=== PATIENT | female | born 1940 | race Caucasian/White ===

== ENCOUNTER 2016-09-12 | Outpatient (CLI) | END 2016-09-12 02:28 | disposition EMS.NT ==

== ENCOUNTER → 2016-09-15 | Outpatient (CLI) | payer OTHER | DX: R55 Syncope and collapse (principal) ==

== ENCOUNTER 2016-10-22 11:14 | Outpatient (CLI) | payer OTHER | END 2016-10-22 11:15 | disposition home or self-care (01) | DX: R55 Syncope and collapse (principal); E11.8 Type 2 diabetes mellitus with unspecified complications; I10 Essential (primary) hypertension; E78.5 Hyperlipidemia, unspecified ==

== ENCOUNTER 2016-11-24 08:00 | Outpatient (CLI) | payer OTHER | END 2016-11-24 08:01 | disposition home or self-care (01) | DX: R51 Headache (principal); E78.00 Pure hypercholesterolemia, unspecified; E11.9 Type 2 diabetes mellitus without complications ==

== ENCOUNTER 2016-12-08 15:20 | Outpatient (CLI) | payer MEDICARE | END 2016-12-08 15:21 | disposition home or self-care (01) | DX: E87.6 Hypokalemia (principal) ==

== ENCOUNTER 2016-12-10 12:45 | Outpatient (CLI) | payer MEDICARE ==
[2016-12-10] MEDS ORDERED: IOPAMIDOL-300 100 ML VIAL IVP ONE (13:10)
== END 2016-12-10 12:46 | disposition home or self-care (01) ==
DX: R51 Headache (principal); R90.82 White matter disease, unspecified
CPT/HCPCS: 70470; Q9967

== ENCOUNTER 2017-01-20 08:00 | Outpatient (CLI) | payer MEDICARE | END 2017-01-20 08:01 | disposition home or self-care (01) | DX: I10 Essential (primary) hypertension (principal); E78.00 Pure hypercholesterolemia, unspecified ==

== ENCOUNTER 2017-07-30 15:18 | Outpatient (CLI) | payer MEDICARE ==
[2017-07-30 18:51] LABS: BASOPHILS # (AUTO) 0.1 10^3/uL (0.0-0.1); BASOPHILS % (AUTO) 0.8 %; EOSINOPHILS # (AUTO) 0.1 10^3/uL (0.0-0.7); EOSINOPHILS % (AUTO) 1.9 %; HCT - HEMATOCRIT 42.9 % (37.0-47.0); LYMPHOCYTES % (AUTO) 26.7 %; MEAN CORPUSCULAR HEMOGLOBIN 29.3 pg (27.0-31.0); MEAN CORPUSCULAR HGB CONC 32.7 g/dL (32.0-36.0); MEAN CORPUSCULAR VOLUME 89.4 fL (81.0-99.0); MEAN PLATELET VOLUME 8.9 fL (7.9-10.8); MONOCYTES # (AUTO) 0.4 10^3/uL (0.0-1.0); NEUTROPHILS # (AUTO) 4.9 10^3/uL (1.5-6.6); NEUTROPHILS % (AUTO) 65.6 %; NUCLEATED RED BLOOD CELLS AUTO 0.1 /100WBC; RED CELL DISTRIBUTION WIDTH 12.9 % (12.0-15.0); UNCORRECTED WHITE BLOOD COUNT 7.5 x10^3/uL; WHITE BLOOD COUNT 7.5 x10^3/uL (4.8-10.8)
[2017-07-30 19:12] LABS: HEMOGLOBIN A1C 0.73 g/dL
[2017-07-30 19:31] LABS: ALBUMIN/GLOBULIN RATIO 1.3 (1.0-2.2); BILIRUBIN,TOTAL 0.6 mg/dL (0.2-1.0); BUN - BLOOD UREA NITROGEN 16 mg/dL (6-20); CALCIUM 9.7 mg/dL (8.5-10.3); CARBON DIOXIDE - CO2 29 mmol/L (21-32); CHLORIDE 98 mmol/L (101-111); CHOL/HDL RATIO 3.8 (<4.4); CHOLESTEROL 218 mg/dL; CREATININE 0.9 mg/dL (0.4-1.0); GFR - MDRD 61 (>89); GLUCOSE 135 mg/dL (70-100); HDL CHOLESTEROL 57 mg/dL; LDL/HDL RATIO 2.4 (<4.4); POTASSIUM 3.6 mmol/L (3.5-5.0); SODIUM 137 mmol/L (135-145); TOTAL PROTEIN 7.5 g/dL (6.7-8.2); TRIGLYCERIDES 114 mg/dL; VLDL CHOLESTEROL 23 mg/dL
== END 2017-07-30 15:19 | disposition home or self-care (01) ==
LOC: LAB.F 15:18
PROVIDERS: ATTEND Physician Assistant Medical
DX: E87.6 Hypokalemia (principal); E78.00 Pure hypercholesterolemia, unspecified; I10 Essential (primary) hypertension
CPT/HCPCS: 36415; 80053; 80061; 83036; 85025

== ENCOUNTER 2018-06-29 13:49 | Outpatient (CLI) | payer MEDICARE ==
[2018-06-29 17:59] LABS: MEAN CORPUSCULAR HEMOGLOBIN 29.8 pg (27.0-31.0); MEAN CORPUSCULAR HGB CONC 33.5 g/dL (32.0-36.0); MEAN PLATELET VOLUME 9.2 fL (7.9-10.8); RED BLOOD COUNT 4.69 10^6/uL (4.20-5.40); RED CELL DISTRIBUTION WIDTH 12.8 % (12.0-15.0); WHITE BLOOD COUNT 7.4 x10^3/uL (4.8-10.8)
[2018-06-29 18:30] LABS: BUN - BLOOD UREA NITROGEN 19 mg/dL (6-20); CALCIUM 9.5 mg/dL (8.5-10.3); CARBON DIOXIDE - CO2 30 mmol/L (21-32); CHLORIDE 102 mmol/L (101-111); CHOL/HDL RATIO 3.9 (<4.4); CHOLESTEROL 208 mg/dL; CREATININE 0.8 mg/dL (0.4-1.0); GFR - MDRD 70 (>89); GLUCOSE 100 mg/dL (70-100); HDL CHOLESTEROL 54 mg/dL; LDL CHOLESTEROL,CALCULATED 133 mg/dL; LDL/HDL RATIO 2.5 (<4.4); SODIUM 140 mmol/L (135-145); VLDL CHOLESTEROL 21 mg/dL
[2018-06-29 18:34] LABS: HB2 TOTAL 14.7 g/dL; HEMOGLOBIN A1C 0.68 g/dL; HEMOGLOBIN A1C % 6.4 % (4.6-6.2)
== END 2018-06-29 13:50 | disposition home or self-care (01) ==
LOC: LAB.F 13:49
PROVIDERS: ATTEND Physician Assistant Medical
DX: E11.40 Type 2 diabetes mellitus with diabetic neuropathy, unspecified (principal); E78.00 Pure hypercholesterolemia, unspecified; I10 Essential (primary) hypertension
CPT/HCPCS: 36415; 80048; 80061; 82043; 83036; 83721; 85027

== ENCOUNTER 2018-07-04 21:05 | Emergency (ER) | payer MEDICARE, OTHER ==
--- NOTE | 2018-07-04 22:35 | CT Report ---
Reason: concussion Procedure Date: 07/04/2018 Accession Number: [id number] / [id number] Procedure: CT - Head W/O CPT Code: FULL RESULT: EXAM: CT HEAD EXAM DATE: 07/04/2018 10:01 PM. CLINICAL HISTORY: Concussion. COMPARISON: Head CT 12/10/2016. TECHNIQUE: Multiaxial CT images were obtained from the foramen magnum to the vertex. Reformats: Sagittal and coronal. IV contrast: None. In accordance with CT protocol optimization, one or more of the following dose reduction techniques were utilized for this exam: automated exposure control, adjustment of mA and/or KV based on patient size, or use of iterative reconstructive technique. FINDINGS: Parenchyma: No intraparenchymal hemorrhage. No evidence of mass, midline shift, or CT findings of infarction. Schaefer-white differentiation is distinct. Extraaxial Spaces: Normal for age. No subdural or epidural collections identified. Ventricles: Normal in size and position. Sinuses and Orbits: Imaged paranasal sinuses, orbits, and mastoids show no significant abnormality. Bones: No evidence of fracture or calvarial defect. Other: Prominent nonspecific white matter hypodensity, unchanged. IMPRESSION: No acute intracranial process identified. RADIA
--- NOTE | 2018-07-04 23:08 | ED Physician Documentation ---
PD HPI HEAD INJURY - Stated complaint Stated Complaint: GLF - HEAD PX - Chief complaint Chief Complaint: Neuro - History obtained from History obtained from: Patient, Family - History of Present Illness Mechanism of head injury: Fell Where head injury occurred: Other (gas station) Timing - onset: Yesterday Location of injury: Right, Front Quality of pain: Pain Associated symptoms: Nausea / vomiting. No: LOC, AMS, Amnesia, Neck pain, Paresthesias, Seizures, Ear drainage, Nasal drainage Symptoms improve with: Rest Symptoms worsen with: Palpation, Movement Contributing factors: No: Anticoagulated Similar symptoms before: Diagnosis (concussion) Recently seen: Not recently seen - Additional information Additional information: 78-year-old female was walking into the [employer] [place] when she tripped over a small ledge fell forward and fell onto her face. She has a bruise to her forehead on the right side. She did not have any loss of consciousness associated with the fall. She has had some nausea she has not had any vomiting. She has had some trouble concentrating and problems with her memory. She den ies any dizziness associated with this. She has had a prior head injury in 1993 that was significant and required prolonged rehabilitation. She states that at that time she had a lot of dizziness associated with it and she has not had any with this head injury. She notes that her friends are telling her that she is not acting her usual self. Review of Systems Constitutional: denies: Fever Eyes: denies: Loss of vision, Decreased vision Ears: denies: Ear pain Nose: denies: Rhinorrhea / runny nose, Congestion Throat: denies: Sore throat Cardiac: denies: Chest pain / pressure, Palpitations Respiratory: denies: Dyspnea, Cough GI: reports: Nausea. denies: Abdominal Pain, Vomiting, Constipation, Diarrhea : denies: Dysuria, Frequency Skin: denies: Rash Musculoskeletal: denies: Neck pain, Back pain, Extremity pain Neurologic: reports: Confused, Headache, Head injury. 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, Other - Present Medications Home Medications: Ambulatory Orders Medication Instructions Recorded Confirmed Aspirin Chewable [St Reyes 81 mg PO DAILY 08/26/13 08/26/13 Aspirin] Lisinopril [Zestril] 40 mg PO DAILY 08/26/13 08/26/13 Simvastatin 80 mg PO 08/26/13 08/26/13 diazePAM [Valium] 5 mg PO TID PRN #7 tablet 08/26/13 Ondansetron Odt [Zofran] 4 mg TL Q6H PRN #10 tablet 07/04/18 - Allergies Allergies/Adverse Reactions: Allergies Allergy/AdvReac Type Severity Reaction Status Date / Time meperidine HCl * AdvReac Unknown Nausea Verified 07/04/18 21:14 [From Demerol] niacin AdvReac Unknown Hives Verified 07/04/18 21:14 - Social History Does the pt smoke?: Yes Smoking Status: Current every day smoker Does the pt drink ETOH?: No Does the pt have substance abuse?: No - Immunizations Immunizations are current?: Yes - POLST Patient has POLST: No PD ED PE NORMAL - Vitals Vital signs reviewed: Yes (hypertensive ) - General General: Alert and oriented X 3, No acute distress, Well developed/nourished - HEENT HEENT: PERRL, EOMI, Ears normal, Moist mucous membranes, Other (There is a tender area to the right forehead with minimal ecchymosis) - Neck Neck: Supple, no meningeal sign, No bony TTP - Cardiac Cardiac: RRR, No murmur - Respiratory Respiratory: No respiratory distress, Clear bilaterally - Abdomen Abdomen: Soft, Non tender - Back Back: No CVA TTP, No spinal TTP - Derm Derm: Normal color, Warm and dry, No rash - Extremities Extremities: No deformity, No edema - Neuro Neuro: Alert and oriented X 3, community organization worker 2-12 intact, No motor deficit, No sensory deficit, Normal speech Eye Opening: Spontaneous Motor: Obeys Commands Verbal: Oriented GCS Score: 15 - Psych Psych: Normal mood, Normal affect Results - Vitals Vitals: Vital Signs - 24 hr 07/04/18 21:08 Temperature 36.7 C Heart Rate 89 Respiratory 18 Rate Blood Pressure 199/91 H O2 Saturation 97 Oxygen O2 Source Room air - Rads (name of study) CT head without Radiology: Prelim report reviewed (Impression: No acute intracranial process identified.), EMP read indepedently, See rad report PD MEDICAL DECISION MAKING - ED course Complexity details: reviewed old records, reviewed results, re-evaluated patient, considered differential, d/w patient, d/w family ED course: 78-year-old female with a concussion without loss of consciousness has had some trouble concentrating and some mild nausea. Her CT scan is without evidence of acute intracranial hemorrhage. The patient does have a friend that she will be staying with and she is discharged to home with instructions on concussion. Departure - Departure Disposition: 01 Home, Self Care Clinical Impression: Concussion Qualifiers: Encounter type: initial encounter Loss of consciousness presence/duration: without LOC Qualified Code(s): S06.0X0A - Concussion without loss of consciousness, initial encounter Condition: Stable Instructions: ED Concussion Follow-Up: Angeline Garces PA-C [Primary Care Provider] - Prescriptions: Ondansetron Odt [Zofran] 4 mg TL Q6H PRN #10 tablet PRN Reason: Nausea / Vomiting
[2018-07-04 23:40] VITALS: BP 192/64
== END 2018-07-04 23:40 | disposition home or self-care (01) ==
LOC: ED 21:05
DX: S06.0X0A Concussion without loss of consciousness, initial encounter (principal); W01.0XXA Fall on same level from slipping, tripping and stumbling without subsequent striking against object, initial encounter; Y93.01 Activity, walking, marching and hiking; Y92.524 Gas station as the place of occurrence of the external cause; I11.0 Hypertensive heart disease with heart failure; I50.9 Heart failure, unspecified; E78.00 Pure hypercholesterolemia, unspecified; E11.9 Type 2 diabetes mellitus without complications; F17.200 Nicotine dependence, unspecified, uncomplicated; I25.10 Atherosclerotic heart disease of native coronary artery without angina pectoris; Z79.82 Long term (current) use of aspirin
CPT/HCPCS: 70450; 99282; 99283

== ENCOUNTER 2018-07-06 17:03 | Outpatient (CLI) | payer OTHER ==
--- NOTE | 2018-07-06 21:48 | XRAY Report ---
Reason: CERVICALGIA Procedure Date: 07/06/2018 Accession Number: [id number] / [id number] Procedure: XR - Cervical Spine Complete CPT Code: FULL RESULT: EXAM: CERVICAL SPINE RADIOGRAPHY EXAM DATE: 07/06/2018 05:38 PM. CLINICAL HISTORY: Fall with head trauma 2 days ago. Persistent posterior neck pain. COMPARISONS: None. TECHNIQUE: 6 views. FINDINGS: Alignment: 4 mm degenerative anterior subluxation C4 on C5. Bones: The cervical vertebral bodies and posterior elements are well-visualized from the skull base through C7-T1. No fractures or bone lesions. Disks: Mild narrowing C4-C5. Moderate narrowing C5-C6. Facets: Multilevel marked degenerative changes bilaterally, greater on the left. Neural Foramina: Bony neural foraminal compromise as follows: Moderate right and marked left C3-C4, moderate bilateral C4-C5, moderate bilateral C5-C6. Soft Tissues: Normal. No prevertebral soft tissue swelling. The visualized lung apices are clear. IMPRESSION: 1. No acute bony abnormality. 2. Multilevel moderate to marked degenerative changes. RADIA
== END 2018-07-06 17:04 | disposition home or self-care (01) ==
LOC: DI 17:03
PROVIDERS: ATTEND Physician Assistant Medical
DX: M47.9 Spondylosis, unspecified (principal); M50.321 Other cervical disc degeneration at C4-C5 level; M43.12 Spondylolisthesis, cervical region
CPT/HCPCS: 72050

== ENCOUNTER 2018-08-17 14:29 | Outpatient (CLI) | payer OTHER ==
--- NOTE | 2018-08-18 09:17 | Mammography Report ---
Reason: ANNUAL SCREENING Procedure Date: 08/17/2018 Accession Number: [id number] / [id number] Procedure: KELLIE - Screening Mammo w/Graham CPT Code: FULL RESULT: EXAM: Screening Mammo w/Graham DATE: 08/17/2018 2:58 PM CLINICAL HISTORY: Screening encounter. History of nulliparity. Family history of breast cancer in a sister around the age of 73 as well as a male relative in his 30s. TECHNIQUE: Bilateral CC and MLO views were obtained. COMPARISON: 08/16/2017 through 08/16/2015. FINDINGS: The breasts demonstrate heterogeneously dense fibroglandular parenchyma bilaterally. There are coarse typically benign calcifications. No suspicious masses, clustered microcalcifications, or regions of architectural distortion are identified. IMPRESSION: Benign findings RECOMMENDATION: Routine annual screening unless otherwise clinically indicated. BIRADS CATEGORY 2: Benign findings STANDARD QUALIFYING STATEMENTS: 1. This examination was not reviewed with the aid of Computer-Aided Detection (CAD). 2. A negative or benign imaging report should not preclude biopsy if clinically suspicious findings are present. 3. Dense breasts may obscure an underlying neoplasm. 4. This examination was reviewed with the aid of 3D breast imaging (tomosynthesis).
== END 2018-08-17 14:30 | disposition home or self-care (01) ==
LOC: DI 14:29
PROVIDERS: ATTEND Physician Assistant Medical
DX: Z12.31 Encounter for screening mammogram for malignant neoplasm of breast (principal); Z80.3 Family history of malignant neoplasm of breast
CPT/HCPCS: 77063; 77067

== ENCOUNTER 2018-12-13 13:49 | Outpatient (CLI) | payer OTHER | END 2018-12-13 13:50 | disposition home or self-care (01) | LOC: DI 13:49 | PROVIDERS: ATTEND Internal Medicine Cardiovascular Disease | DX: R07.9 Chest pain, unspecified (principal) | CPT/HCPCS: 93306 ==

== ENCOUNTER 2018-12-29 07:02 | Emergency (ER) | payer OTHER ==
[2018-12-29] MEDS ORDERED: ASPIRIN CHEW 81 MG TABLET PO STA (07:32)
--- NOTE | 2018-12-29 07:32 | ED Physician Documentation ---
PD HPI CHEST PAIN - Stated complaint Stated Complaint: CHEST PAIN - Chief complaint Chief Complaint: Cardiac - History obtained from History obtained from: Patient - History of Present Illness Timing - onset: How many hours ago (2) Timing - onset during: Sleep Pain level max: 10 Pain level now: 1 Quality: Pressure Location: Substernal Improved by: Nitro Associated symptoms: Nausea. No: Shortness of air, Diaphoresis, Vomiting Similar symptoms before: Diagnosis (Angina) Recently seen: Admitted (2 months ago she was hospitalized in [place] with chest pain.) - Treatment prior to arrival Treatment prior to arrival: NTG x 3. - Additional information Additional information: The patient is a 78-year-old female with history of angina, who presents with substernal chest pain that started about 2 hours prior to arrival, awaking her from sleep. It was rated 10 out of 10 in severity, and she describes it as pressure, heaviness. She has taken 3 of her own sublingual nitroglycerin, and reports improvement of her pain down to 1 out of 10 in severity at the time of arrival in the emergency department. She reports associated nausea. She denies vomiting, shortness of breath, or diaphoresis. She reports a history of similar but less severe pain 2 days ago, that resolved spontaneously. 2 months ago, while vacationing at [place], she developed chest pain for which she was hospitalized, and subsequently transferred to [facility] in [place] where she underwent cardiac catheterization. Cardiac risk factors are positive for diet-controlled diabetes, hyperlipidemia, hypertension, as well as history of cigarette smoking. She quit cigarettes about 4 years ago. Review of Systems Constitutional: denies: Fever, Fatigue Ears: denies: Tinnitus/ringing Nose: denies: Congestion Throat: denies: Sore throat Cardiac: reports: Chest pain / pressure. denies: Palpitations Respiratory: denies: Dyspnea, Cough GI: reports: Nausea. 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, Other - Present Medications Home Medications: Ambulatory Orders Medication Instructions Recorded Confirmed Aspirin Chewable [St Reyes 81 mg PO DAILY 08/26/13 08/26/13 Aspirin] Lisinopril [Zestril] 40 mg PO DAILY 08/26/13 08/26/13 Simvastatin 80 mg PO 08/26/13 08/26/13 diazePAM [Valium] 5 mg PO TID PRN #7 tablet 08/26/13 Ondansetron Odt [Zofran] 4 mg TL Q6H PRN #10 tablet 07/04/18 raNITIdine HCl [Ranitidine HCl] 150 mg PO BID #30 tablet 12/29/18 - Allergies Allergies/Adverse Reactions: Allergies Allergy/AdvReac Type Severity Reaction Status Date / Time meperidine HCl * AdvReac Unknown Nausea Verified 12/29/18 07:15 [From Demerol] niacin AdvReac Unknown Hives Verified 12/29/18 07:15 - Social History Does the pt smoke?: No Smoking Status: Former smoker Does the pt drink ETOH?: No Does the pt have substance abuse?: No - Immunizations Immunizations are current?: Yes - POLST Patient has POLST: No PD ED PE NORMAL - Vitals Vital signs reviewed: Yes (Systolic hypertension.) - General General: Alert and oriented X 3, Well developed/nourished - HEENT HEENT: Atraumatic, Moist mucous membranes, Pharynx benign - Neck Neck: No adenopathy, No JVD - Cardiac Cardiac: RRR, No murmur - Respiratory Respiratory: No respiratory distress, Clear bilaterally - Abdomen Abdomen: Soft, Non tender - Back Back: No CVA TTP - Derm Derm: No rash - Extremities Extremities: No edema, No calf tenderness / cord - Neuro Neuro: Alert and oriented X 3, No motor deficit, Normal speech Results - Vitals Vitals: Vital Signs - 24 hr 12/29/18 12/29/18 12/29/18 09:06 11:45 12:18 Heart Rate 54 L 60 104 H Respiratory 16 20 28 H Rate Blood Pressure 145/79 H 190/75 H 151/95 H O2 Saturation 96 97 97 Oxygen O2 Source Room air - EKG (time done) 07:09 Rate: Rate (enter#) (78) Rhythm: NSR [place]: Normal Intervals: Normal MA QRS: Normal Ischemia: Normal ST segments Compare to prior EKG: Unchanged from prior EKG Computer interpretation: Agree with computer - Labs Labs: Laboratory Tests 12/29/18 12/29/18 12/29/18 07:25 07:25 07:25 WBC 7.2 RBC 4.64 Hgb 13.5 Hct 41.0 MCV 88.4 MCH 29.2 MCHC 33.0 RDW 13.2 Plt Count 189 MPV 8.4 Neut # (Auto) 4.9 Lymph # (Auto) 1.6 [place] # (Auto) 0.4 Eos # (Auto) 0.2 Baso # (Auto) 0.1 Absolute Nucleated RBC 0.00 Nucleated RBC % 0.1 Sodium 138 Potassium 4.0 Chloride 99 L Carbon Dioxide 29 Anion Gap 10.0 BUN 17 Creatinine 0.8 Estimated GFR (MDRD) 70 L Glucose 124 H Calcium 9.2 Total Bilirubin 0.4 AST 26 ALT 34 Alkaline Phosphatase 60 Troponin I < 0.04 Total Protein 7.2 Albumin 3.8 Globulin 3.4 Albumin/Globulin Ratio 1.1 Lipase 27 12/29/18 11:16 WBC RBC Hgb Hct MCV MCH MCHC RDW Plt Count MPV Neut # (Auto) Lymph # (Auto) [place] # (Auto) Eos # (Auto) Baso # (Auto) Absolute Nucleated RBC Nucleated RBC % Sodium Potassium Chloride Carbon Dioxide Anion Gap BUN Creatinine Estimated GFR (MDRD) Glucose Calcium Total Bilirubin AST ALT Alkaline Phosphatase Troponin I < 0.04 Total Protein Albumin Globulin Albumin/Globulin Ratio Lipase - Rads (name of study) Portable CXR Radiology: Prelim report reviewed, EMP read contemporaneously, See rad report (Normal chest for age and body size, stable. No pneumonia, CHF or other demonstrated cause for chest pain.) PD MEDICAL DECISION MAKING - ED course Complexity details: reviewed old records, reviewed results, re-evaluated patient, considered differential, d/w patient, d/w golf tournament consultant ED course: The patient's presentation is consistent with angina, but her electrocardiogram reveals no acute ischemic abnormalities, and her troponin level is negative. A repeat troponin IV hours after presentation is also negative. Discharge summary from [facility] in [place] was obtained, revealing that the patient underwent cardiac catheterization there 2 months ago showing mild nonobstructive disease. She was pain-free for the first 4 hours of her course in the emergency department. She then developed slight nausea and chest pressure which she rated at 3 out of 10 in severity. A sublingual nitroglycerin was administered and it did not relieve her symptoms. Sublingual Zofran was administered and a GI cocktail. She did get relief of her symptoms with this treatment. I discussed her presentation with Dr. Zaldivar who is her coat hanger shaper machine operator. She has an appointment with him this afternoon, and will keep that appointment. Departure - Departure Disposition: 01 Home, Self Care Clinical Impression: Chest pain Qualifiers: Chest pain type: unspecified Qualified Code(s): R07.9 - Chest pain, unspecified Gastroesophageal reflux disease Qualifiers: Esophagitis presence: esophagitis presence not specified Qualified Code(s): K21.9 - Gastro-esophageal reflux disease without esophagitis Condition: Stable Instructions: ED Chest Pain Atypical Unkn Cause Follow-Up: Bronson Zaldivar MD [Provider Admit Priv/Credential] - Angeline Garces PA-C [Primary Care Provider] - Prescriptions: raNITIdine HCl [Ranitidine HCl] 150 mg PO BID #30 tablet Comments: Take ranitidine twice daily as prescribed. You can use liquid antacid, such as Maalox or Mylanta, if you develop recurrent symptoms. Keep the appointment with Dr. robert if that is scheduled for this afternoon. Return to the emergency department if you develop recurrent or increasing chest pain, or otherwise worsening symptoms. Discharge Date/Time: 12/29/18 12:51
[2018-12-29 07:42] LABS: BASOPHILS # (AUTO) 0.1 10^3/uL (0.0-0.1); BASOPHILS % (AUTO) 1.6 %; EOSINOPHILS # (AUTO) 0.2 10^3/uL (0.0-0.7); EOSINOPHILS % (AUTO) 2.5 %; HGB - HEMOGLOBIN 13.5 g/dL (12.0-16.0); LYMPHOCYTES # (AUTO) 1.6 10^3/uL (1.5-3.5); LYMPHOCYTES % (AUTO) 22.8 %; MEAN CORPUSCULAR HEMOGLOBIN 29.2 pg (27.0-31.0); MEAN CORPUSCULAR VOLUME 88.4 fL (81.0-99.0); MEAN PLATELET VOLUME 8.4 fL (7.9-10.8); MONOCYTES # (AUTO) 0.4 10^3/uL (0.0-1.0); MONOCYTES % (AUTO) 5.4 %; NEUTROPHILS # (AUTO) 4.9 10^3/uL (1.5-6.6); NEUTROPHILS % (AUTO) 67.7 %; PLT - PLATELET COUNT 189 10^3/uL (130-450); RED BLOOD COUNT 4.64 10^6/uL (4.20-5.40); RED CELL DISTRIBUTION WIDTH 13.2 % (12.0-15.0); WHITE BLOOD COUNT 7.2 x10^3/uL (4.8-10.8)
[2018-12-29 07:57] LABS: ALBUMIN 3.8 g/dL (3.2-5.5); ALBUMIN/GLOBULIN RATIO 1.1 (1.0-2.2); BILIRUBIN,TOTAL 0.4 mg/dL (0.2-1.0); CALCIUM 9.2 mg/dL (8.5-10.3); CREATININE 0.8 mg/dL (0.4-1.0); TOTAL PROTEIN 7.2 g/dL (6.7-8.2)
--- NOTE | 2018-12-29 08:15 | XRAY Report ---
Reason: chest pain Procedure Date: 12/29/2018 Accession Number: [id number] / [id number] Procedure: XR - Chest 1 View X-Ray CPT Code: 27147 FULL RESULT: EXAM: CHEST RADIOGRAPHY, PORTABLE 1 VIEW EXAM DATE: 12/29/2018 07:49 AM. CLINICAL HISTORY: Chest pain in a 78-year-old female. COMPARISON: CHEST 2 VIEW PA/LAT 02/04/2016 2:33 PM. XR CHEST PA AND LAT 03/11/2010 9:00 AM. TECHNIQUE: 834 hour AP upright portable view. FINDINGS: Lungs/Pleura: No focal opacities evident. No pleural effusion. No pneumothorax. Satisfactory inspiratory effort. Mediastinum: Heart size normal, without adenopathy or pulmonary vascular congestion. Mild aortic tortuosity, as previously. Other: Trachea is midline. Osseous structures are unremarkable for age. IMPRESSION: Normal chest for age and body size, stable. No pneumonia, CHF or other demonstrated cause for chest pain. RADIA
[2018-12-29] MEDS ORDERED: ONDANSETRON ODT 4 MG TABLET TL STA (11:47)
[2018-12-29] MEDS ORDERED: NITROGLYCERIN SL 0.4 MG TABLET SL STA (12:12)
[2018-12-29] MEDS ORDERED: LIDOCAINE VISCOUS 2% 15 ML UDC MM STA (12:18)
[2018-12-29] MEDS ORDERED: MAG HYDROX/AL HYDROX/SIMETH 30 ML UDC PO STA (12:18)
[2018-12-29 12:19] VITALS: BP 151/95
== END 2018-12-29 12:51 | disposition home or self-care (01) ==
LOC: ED 07:02
DX: R07.9 Chest pain, unspecified (principal); K21.9 Gastro-esophageal reflux disease without esophagitis; E78.00 Pure hypercholesterolemia, unspecified; I11.0 Hypertensive heart disease with heart failure; I50.9 Heart failure, unspecified; E11.9 Type 2 diabetes mellitus without complications; Z79.82 Long term (current) use of aspirin
CPT/HCPCS: 36415; 71045; 80053; 83690; 84484; 85025; 93005; 99284; A9270; Q0162

== ENCOUNTER 2019-04-10 | Outpatient (CLI) | payer OTHER | END 2019-04-10 10:47 | disposition home or self-care (01) ==

== ENCOUNTER 2019-05-14 06:30 | Outpatient (CLI) | payer OTHER | END 2019-05-14 06:31 | disposition critical access hospital (66) | LOC: EMS 06:30 | PROVIDERS: ATTEND Surgery | DX: R07.89 Other chest pain (principal) | CPT/HCPCS: A0425; A0429 ==

== ENCOUNTER 2019-05-14 07:04 | Emergency (ER) | payer OTHER ==
--- NOTE | 2019-05-14 07:16 | ED Physician Documentation ---
PD HPI CHEST PAIN - Stated complaint Stated Complaint: CP - Chief complaint Chief Complaint: Cardiac - History obtained from History obtained from: Patient - History of Present Illness Timing - onset: How many hours ago (2) Timing - onset during: Rest Timing - duration: Hours (2) Timing - details: Abrupt onset Pain level max: 7 Pain level now: 0 Quality: Pressure Location: Substernal Radiation: No: Jaw, Neck, Back, Abdominal, Left upper extremity, Right upper extremity Improved by: Nitro Worsened by: No: Exertion, Inspiration, Eating, Movement, Palpation, Position Similar symptoms before: Diagnosis (angina) Recently seen: Not recently seen - Additional information Additional information: mild non-obstructive disease on cardiac cath 7 months ago. NTG x2 given by EMS today with relief of symptoms. Pain is epigastric/lower chest. 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, Other - Present Medications Home Medications: Ambulatory Orders Medication Instructions Recorded Confirmed Aspirin Chewable [St Reyes 81 mg PO DAILY 08/26/13 08/26/13 Aspirin] Atorvastatin Calcium 20 mg PO DAILY 05/14/19 05/14/19 Lisinopril/Hydrochlorothiazide 1 each PO DAILY 05/14/19 05/14/19 [Lisinopril-Hctz 20-12.5 mg Tab] Nitroglycerin [Nitrostat] 0.4 mg SL ONCE 05/14/19 05/14/19 - Allergies Allergies/Adverse Reactions: Allergies Allergy/AdvReac Type Severity Reaction Status Date / Time meperidine HCl * AdvReac Unknown Nausea Verified 05/14/19 07:09 [From Demerol] niacin AdvReac Unknown Hives Verified 05/14/19 07:09 - Social History Does the pt smoke?: No Smoking Status: Former smoker Does the pt drink ETOH?: No Does the pt have substance abuse?: No - Immunizations Immunizations are current?: Yes - POLST Patient has POLST: No PD ED PE NORMAL - Vitals Vital signs reviewed: Yes - General General: Alert and oriented X 3, No acute distress - HEENT HEENT: Moist mucous membranes - Neck Neck: Supple, no meningeal sign - Cardiac Cardiac: RRR, Strong equal pulses - Respiratory Respiratory: No respiratory distress, Clear bilaterally - Abdomen Abdomen: Soft, Non tender, Non distended - Derm Derm: Warm and dry - Extremities Extremities: No edema - Neuro Neuro: Alert and oriented X 3 Results - Vitals Vitals: Vital Signs - 24 hr 05/14/19 05/14/19 07:05 09:32 Temperature 37.5 C 36.1 C L Heart Rate 70 63 Respiratory 21 19 Rate Blood Pressure 174/79 H 117/58 L O2 Saturation 96 96 Oxygen O2 Source Room air - EKG (time done) 0708 Rate: Rate (enter#) (63) Rhythm: NSR [place]: Normal Intervals: Normal [place] QRS: Normal Ischemia: Normal ST segments - Labs Labs: Laboratory Tests 05/14/19 05/14/19 05/14/19 07:13 07:13 07:13 WBC 7.9 RBC 4.45 Hgb 13.4 Hct 40.7 MCV 91.5 MCH 30.1 MCHC 32.9 RDW 12.5 Plt Count 189 MPV 10.1 Neut # (Auto) 5.0 Lymph # (Auto) 2.1 [place] # (Auto) 0.5 Eos # (Auto) 0.2 Baso # (Auto) 0.1 Absolute Nucleated RBC 0.00 Nucleated RBC % 0.0 Sodium 140 Potassium 3.6 Chloride 101 Carbon Dioxide 28 Anion Gap 11.0 BUN 16 Creatinine 0.8 Estimated GFR (MDRD) 70 L Glucose 123 H Calcium 9.4 Total Bilirubin < 0.2 L AST 19 ALT 20 Alkaline Phosphatase 55 Troponin I High Sens 3.6 Total Protein 7.1 Albumin 3.9 Globulin 3.2 Albumin/Globulin Ratio 1.2 Lipase 29 05/14/19 08:54 WBC RBC Hgb Hct MCV MCH MCHC RDW Plt Count MPV Neut # (Auto) Lymph # (Auto) [place] # (Auto) Eos # (Auto) Baso # (Auto) Absolute Nucleated RBC Nucleated RBC % Sodium Potassium Chloride Carbon Dioxide Anion Gap BUN Creatinine Estimated GFR (MDRD) Glucose Calcium Total Bilirubin AST ALT Alkaline Phosphatase Troponin I High Sens 3.3 Total Protein Albumin Globulin Albumin/Globulin Ratio Lipase - Rads (name of study) cxr Radiology: Prelim report reviewed, EMP read contemporaneously, See rad report (no acute disease) PD MEDICAL DECISION MAKING - ED course Complexity details: reviewed results, re-evaluated patient, considered diffe rential (No ST elevation [place], no aortic dissection, no PE, no tension pneumothorax, no aortic aneurysm), d/w patient, d/w family ED course: 78-year-old female presents to the emergency department with chest pain. No acute abnormalities on EKG. Negative high-sensitivity troponin x2. No evidence of acute coronary syndrome at this time. Normal cardiac cath 7 months ago e xcept for mild nonocclusive disease. She remained fully asymptomatic here. We will follow-up with her doctor for further care. Does not appear consistent with unstable angina. Patient counseled regarding signs and symptoms for which I believe and urgent re-evaluation would be necessary. Patient with good understanding of and agreement to plan and is comfortable going home at this time This document was made in part using voice recognition software. While efforts are made to proofread this document, sound alike and grammatical errors may occur. Departure - Departure Disposition: 01 Home, Self Care Clinical Impression: Chest pain Qualifiers: Chest pain type: unspecified Qualified Code(s): R07.9 - Chest pain, unspecified Condition: Good Instructions: ED Chest Pain Atypical Unkn Cause Follow-Up: Flynn Scott MD [Primary Care Provider] - Within 1 week Comments: Continue your current medications at home. Return if you worsen. Your testing does not show any acute abnormalities today. Discharge Date/Time: 05/14/19 09:42
[2019-05-14 07:19] LABS: BASOPHILS # (AUTO) 0.1 10^3/uL (0.0-0.1); BASOPHILS % (AUTO) 0.9 %; EOSINOPHILS # (AUTO) 0.2 10^3/uL (0.0-0.7); EOSINOPHILS % (AUTO) 2.3 %; HGB - HEMOGLOBIN 13.4 g/dL (12.0-16.0); LYMPHOCYTES # (AUTO) 2.1 10^3/uL (1.5-3.5); LYMPHOCYTES % (AUTO) 27.1 %; MEAN CORPUSCULAR HEMOGLOBIN 30.1 pg (27.0-31.0); MEAN CORPUSCULAR HGB CONC 32.9 g/dL (32.0-36.0); MEAN CORPUSCULAR VOLUME 91.5 fL (81.0-99.0); MEAN PLATELET VOLUME 10.1 fL (7.9-10.8); MONOCYTES # (AUTO) 0.5 10^3/uL (0.0-1.0); MONOCYTES % (AUTO) 6.1 %; NEUTROPHILS % (AUTO) 63.3 %; PLT - PLATELET COUNT 189 10^3/uL (130-450); RED BLOOD COUNT 4.45 10^6/uL (4.20-5.40); RED CELL DISTRIBUTION WIDTH 12.5 % (12.0-15.0); WHITE BLOOD COUNT 7.9 x10^3/uL (4.8-10.8)
[2019-05-14 07:42] LABS: ALBUMIN 3.9 g/dL (3.2-5.5); ALBUMIN/GLOBULIN RATIO 1.2 (1.0-2.2); ALKALINE PHOSPHATASE 55 IU/L (42-121); ALT ALANINE AMINOTRANSFERASE 20 IU/L (10-60); AST ASPARTATE AMINOTRANSFERASE 19 IU/L (10-42); BILIRUBIN,TOTAL < 0.2 mg/dL (0.2-1.0); BUN - BLOOD UREA NITROGEN 16 mg/dL (6-20); CALCIUM 9.4 mg/dL (8.5-10.3); CARBON DIOXIDE - CO2 28 mmol/L (21-32); CHLORIDE 101 mmol/L (101-111); CREATININE 0.8 mg/dL (0.4-1.0); GFR - MDRD 70 (>89); GLUCOSE 123 mg/dL (70-100); LIPASE 29 U/L (22-51); SODIUM 140 mmol/L (135-145); TOTAL PROTEIN 7.1 g/dL (6.7-8.2)
--- NOTE | 2019-05-14 08:02 | XRAY Report ---
Reason: chest pain Procedure Date: 05/14/2019 Accession Number: [id number] / [id number] Procedure: XR - Chest 1 View X-Ray CPT Code: 01574 FULL RESULT: EXAM: CHEST RADIOGRAPHY EXAM DATE: 05/14/2019 07:27 AM. CLINICAL HISTORY: Chest pain. COMPARISON: Chest radiograph from 12/29/2018. TECHNIQUE: 1 view. FINDINGS: Lungs/Pleura: No focal opacities evident. No pleural effusion. No pneumothorax. Mediastinum: Mild calcification of the aortic arch present. Cardiomediastinal contour is within normal limits. Other: None. IMPRESSION: No acute cardiopulmonary abnormality. RADIA
[2019-05-14 09:33] VITALS: BP 117/58
== END 2019-05-14 09:42 | disposition home or self-care (01) ==
LOC: EDUNIT# → ED 07:04
DX: R07.9 Chest pain, unspecified (principal); I10 Essential (primary) hypertension; E11.9 Type 2 diabetes mellitus without complications; Z87.891 Personal history of nicotine dependence; Z98.61 Coronary angioplasty status
CPT/HCPCS: 36415; 71045; 80053; 83690; 84484; 85025; 93005; 99284

== ENCOUNTER 2019-07-03 21:25 | Outpatient (CLI) | payer OTHER | END 2019-07-03 21:26 | disposition critical access hospital (66) | LOC: EMS 21:25 | PROVIDERS: ATTEND Surgery | DX: R07.89 Other chest pain (principal); R11.0 Nausea | CPT/HCPCS: A0425; A0427 ==

== ENCOUNTER 2019-07-03 21:57 | Emergency (ER) | payer OTHER ==
[2019-07-03 22:15] LABS: BASOPHILS # (AUTO) 0.1 10^3/uL (0.0-0.1); BASOPHILS % (AUTO) 0.7 %; EOSINOPHILS # (AUTO) 0.2 10^3/uL (0.0-0.7); EOSINOPHILS % (AUTO) 1.6 %; HGB - HEMOGLOBIN 13.4 g/dL (12.0-16.0); LYMPHOCYTES % (AUTO) 30.4 %; MEAN CORPUSCULAR HEMOGLOBIN 29.9 pg (27.0-31.0); MEAN CORPUSCULAR HGB CONC 32.5 g/dL (32.0-36.0); MEAN PLATELET VOLUME 9.7 fL (7.9-10.8); MONOCYTES # (AUTO) 0.6 10^3/uL (0.0-1.0); MONOCYTES % (AUTO) 6.6 %; NEUTROPHILS # (AUTO) 5.9 10^3/uL (1.5-6.6); NEUTROPHILS % (AUTO) 60.2 %; PLT - PLATELET COUNT 215 10^3/uL (130-450); RED BLOOD COUNT 4.48 10^6/uL (4.20-5.40); RED CELL DISTRIBUTION WIDTH 12.5 % (12.0-15.0); WHITE BLOOD COUNT 9.8 x10^3/uL (4.8-10.8)
[2019-07-03 22:27] LABS: ALBUMIN 4.1 g/dL (3.2-5.5); ALBUMIN/GLOBULIN RATIO 1.2 (1.0-2.2); BILIRUBIN,TOTAL 0.6 mg/dL (0.2-1.0); CALCIUM 9.4 mg/dL (8.5-10.3); CREATININE 0.9 mg/dL (0.4-1.0); TOTAL PROTEIN 7.4 g/dL (6.7-8.2)
--- NOTE | 2019-07-03 22:51 | XRAY Report ---
Reason: CP Procedure Date: 07/03/2019 Accession Number: [id number] / [id number] Procedure: XR - Chest 1 View X-Ray CPT Code: 88578 FULL RESULT: EXAM: CHEST RADIOGRAPHY EXAM DATE: 07/03/2019 10:25 PM. CLINICAL HISTORY: CP. COMPARISON: CHEST 1 VIEW 05/14/2019 7:14 AM. TECHNIQUE: 1 view. FINDINGS: Lungs/Pleura: No focal opacities evident. No pleural effusion. No pneumothorax. Mediastinum: Within exam limitations, the cardiomediastinal contour is normal. Other: None. IMPRESSION: Normal single view chest. RADIA
--- NOTE | 2019-07-03 22:57 | ED Physician Documentation ---
PD HPI CHEST PAIN - Stated complaint Stated Complaint: CHEST PRESSURE - Chief complaint Chief Complaint: Cardiac - History obtained from History obtained from: Patient - History of Present Illness Timing - onset: Today Timing - onset during: Light activity Timing - duration: Hours (1) Timing - details: Abrupt onset Pain level now: 2 Quality: Pressure Location: Substernal Improved by: Nitro, ASA Associated symptoms: Shortness of air, Nausea, Feeling faint / dizzy. No: Diaphoresis, Vomiting Similar symptoms before: Work up / diagnostics Recently seen: Not recently seen - Additional information Additional information: This is a 79-year-old woman who presents with her complaints that she was standing at the sink washing dishes when she suddenly had this wave of nausea and dizziness, over her about an hour prior to presentation. She then developed pressure in her mid chest right between her breasts. She could feel her heart pounding in her hands and it felt like it was going very fast she had a headache and a lot of pressure in her head. She took her blood pressure was 189/90 and her pulse rate was 135. She tried not to panic and took her pressure again it was still quite elevated so she took a nitroglycerin tablet and within about 10 minutes the pressure had eased and she called 911. She took 4 baby aspirin at that time. The ambulance arrived and gave her 3 additional nitro in route. Patient tells me she had identical pain to this back in October 2018 when she was on vacation. She went to the hospital in [facility] at that time and was admitted for 3 or 4 days over in [place] where they transferred her. During that time they did a nuclear stress test which she could not complete because of some symptoms that developed and then she says they went on and did an angiogram and she is not sure whether or not they put a stent in. Her project hire is in [place]. Review of Systems Constitutional: denies: Fever Eyes: denies: Loss of vision Ears: denies: Ear pain Nose: denies: Congestion Throat: denies: Sore throat Cardiac: reports: Chest pain / pressure, Palpitations. denies: Pedal edema Respiratory: reports: Dyspnea. denies: Cough GI: reports: Nausea. denies: Vomiting : denies: Dysuria Skin: denies: Rash Musculoskeletal: denies: Extremity pain Neurologic: reports: Other (She felt a little lightheaded). 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: Hysterectomy, Other - Present Medications Home Medications: Ambulatory Orders Medication Instructions Recorded Confirmed Aspirin Chewable [St Reyes 81 mg PO DAILY 08/26/13 08/26/13 Aspirin] Atorvastatin Calcium 20 mg PO DAILY 05/14/19 05/14/19 Lisinopril/Hydrochlorothiazide 1 each PO DAILY 05/14/19 05/14/19 [Lisinopril-Hctz 20-12.5 mg Tab] Nitroglycerin [Nitrostat] 0.4 mg SL ONCE 05/14/19 05/14/19 - Allergies Allergies/Adverse Reactions: Allergies Allergy/AdvReac Type Severity Reaction Status Date / Time meperidine HCl * AdvReac Unknown Nausea Verified 05/14/19 07:09 [From Demerol] niacin AdvReac Unknown Hives Verified 05/14/19 07:09 - Social History Does the pt smoke?: No Smoking Status: Former smoker Does the pt drink ETOH?: No Does the pt have substance abuse?: No - Immunizations Immunizations are current?: Yes - POLST Patient has POLST: No PD ED PE NORMAL - Vitals Vital signs reviewed: Yes - General General: Alert and oriented X 3, No acute distress, Well developed/nourished - HEENT HEENT: Atraumatic, PERRL, Moist mucous membranes - Neck Neck: No adenopathy, Thyroid normal, No JVD - Cardiac Cardiac: RRR, No murmur, Strong equal pulses - Respiratory Respiratory: No respiratory distress, Clear bilaterally - Abdomen Abdomen: Normal bowel sounds, Soft, No organomegaly - Derm Derm: Normal color, Warm and dry, No rash - Extremities Extremities: No edema - Neuro Neuro: Alert and oriented X 3, medication specialist 2-12 intact, No motor deficit, No sensory deficit, Normal speech - Psych Psych: Normal mood, Normal affect Results - Vitals Vitals: Vital Signs - 24 hr 07/03/19 07/03/19 07/04/19 21:59 22:38 00:20 Temperature 36.5 C Heart Rate 78 70 64 Respiratory 20 22 18 Rate Blood Pressure 181/69 H 143/63 H 131/64 H O2 Saturation 99 95 95 07/04/19 07/04/19 07/04/19 02:00 04:00 06:00 Temperature 36.6 C Heart Rate 64 60 67 Respiratory 19 23 20 Rate Blood Pressure 139/57 H 155/56 H 151/63 H O2 Saturation 96 97 94 Oxygen O2 Source Room air - EKG (time done) 2212 Rate: Rate (enter#) (79) Rhythm: NSR Intervals: Other (narrow QRS) Ischemia: Normal ST segments, Q waves (III) Other comments: Other comments (Artifact) Compare to prior EKG: Old EKG unavailable 0130 Rate: Rate (enter#) Rhythm: NSR Ischemia: Normal ST segments, Q waves Compare to prior EKG: Unchanged from prior EKG 0323 Rate: Rate (enter#) (83) Rhythm: NSR Intervals: Other (Narrow QRS) QRS: Normal, LVH, Poor R wave progression, Low voltage Ischemia: Q waves (III), Non specific changes Compare to prior EKG: Unchanged from prior EKG - Labs Labs: Laboratory Tests 07/03/19 07/03/19 07/03/19 22:11 22:11 22:11 WBC 9.8 RBC 4.48 Hgb 13.4 Hct 41.2 MCV 92.0 MCH 29.9 MCHC 32.5 RDW 12.5 Plt Count 215 MPV 9.7 Neut # (Auto) 5.9 Lymph # (Auto) 3.0 [place] # (Auto) 0.6 Eos # (Auto) 0.2 Baso # (Auto) 0.1 Absolute Nucleated RBC 0.00 Nucleated RBC % 0.0 Sodium 135 Potassium 3.8 Chloride 97 L Carbon Dioxide 28 Anion Gap 10.0 BUN 25 H Creatinine 0.9 Estimated GFR (MDRD) 61 L Glucose 109 H Calcium 9.4 Total Bilirubin 0.6 AST 20 ALT 26 Alkaline Phosphatase 59 Troponin I High Sens 4.0 Total Protein 7.4 Albumin 4.1 Globulin 3.3 Albumin/Globulin Ratio 1.2 Lipase 39 07/04/19 07/04/19 01:36 04:26 WBC RBC Hgb Hct MCV MCH MCHC RDW Plt Count MPV Neut # (Auto) Lymph # (Auto) [place] # (Auto) Eos # (Auto) Baso # (Auto) Absolute Nucleated RBC Nucleated RBC % Sodium Potassium Chloride Carbon Dioxide Anion Gap BUN Creatinine Estimated GFR (MDRD) Glucose Calcium Total Bilirubin AST ALT Alkaline Phosphatase Troponin I High Sens 11.1 12.2 Total Protein Albumin Globulin Albumin/Globulin Ratio Lipase - Rads (name of study) cxr Radiology: EMP read contemporaneously, See rad report (Neg acute) PD MEDICAL DECISION MAKING - ED course Complexity details: reviewed results, d/w patient, d/w family, d/w organizational effectiveness consultant ED course: The patient's symptoms are certainly concerning for angina. Her EKGs are not impressive and her initial troponin was only 4.0. The repeat troponin is more than doubled at 11.1 and the patient has some unclear cardiac history is unknown whether or not she had a stent placed in October. She thought they planned to place a stent, but she is not on Plavix, and we have been unable to rack down the records from that admission. I discussed case with Dr. Bates, For her project hire. Initially we were thinking that the patient may be able to be admitted here for observation however shortly after I hung up the phone with them the patient had experienced a episode of what appeared to be sinus or junctional tachycardia up into the 120s associated with this chest pain. Went ahead and started heparin and contacted him. He requested transfer to [facility] and [facility] arranged for the admission and transport. Departure - Departure Disposition: 02 Transfer Acute Care Hosp Clinical Impression: Unstable angina Condition: Good Discharge Date/Time: 07/04/19 08:12
[2019-07-04] MEDS ORDERED: NITROGLYCERIN SL 0.4 MG TABLET SL STA (03:07)
[2019-07-04] MEDS ORDERED: HEPARIN 25000UNITS/500ML (D5W) 25,000 UNIT/500 ML BAG IV STA (03:33)
[2019-07-04] MEDS ORDERED: LORazepam 2 MG/ML VIAL IVP STA (04:29)
[2019-07-04 06:20] VITALS: BP 151/63
== END 2019-07-04 08:12 | disposition short-term general hospital (02) ==
LOC: EDUNIT# → ED 21:57
DX: I20.0 Unstable angina (principal); I11.0 Hypertensive heart disease with heart failure; I50.9 Heart failure, unspecified; I47.1 Supraventricular tachycardia; I45.10 Unspecified right bundle-branch block; E11.9 Type 2 diabetes mellitus without complications; Z79.82 Long term (current) use of aspirin; Z87.891 Personal history of nicotine dependence
CPT/HCPCS: 36415; 71045; 80053; 83690; 84484; 85025; 93005; 96374; 96375; 99285; A9270; J2060

== ENCOUNTER 2019-08-18 13:55 | Outpatient (CLI) | payer MEDICARE | END 2019-08-18 13:56 | disposition home or self-care (01) | LOC: DI.S 13:55 | DX: Z53.9 Procedure and treatment not carried out, unspecified reason (principal) ==

== ENCOUNTER 2019-08-28 12:44 | Outpatient (CLI) | payer MEDICARE ==
--- NOTE | 2019-08-29 08:40 | Mammography Report ---
Reason: SCREENING MAMMO Procedure Date: 08/28/2019 Accession Number: [id number] / [id number] Procedure: MGS - Screening Mammo Dig Bilat CPT Code: Final Report FULL RESULT: EXAM: Screening Mammo Dig Bilat DATE: 08/28/2019 1:09 PM CLINICAL HISTORY: Screening encounter. History of early menses. Family history of breast cancer in a sister at the age of 73. History of left breast excisional biopsy in 1974. History of bilateral breast FNA, all results negative for malignancy. TECHNIQUE: (B) - Bilateral CC and MLO views were obtained. COMPARISON: 08/17/2018 through 08/20/2010. PARENCHYMAL PATTERN: (D) - The breast(s) demonstrate(s) heterogeneously dense fibroglandular parenchyma. FINDINGS: There are typically benign large rodlike calcifications and typically benign coarse calcifications. There are no suspicious masses, calcifications, or areas of distortion. IMPRESSION: Benign findings. BI-RADS category 2. RECOMMENDATION: (ANNUAL) - Recommend routine annual screening mammography. BI-RADS CATEGORY: (2) - Benign Findings. STANDARD QUALIFYING STATEMENTS: 1. This examination was reviewed with the aid of Computer-Aided Detection (CAD). 2. A negative or benign imaging report should not preclude biopsy if clinically suspicious findings are present. 3. Dense breasts may obscure an underlying neoplasm. 4. This examination was reviewed with the aid of 3D breast imaging (tomosynthesis).
== END 2019-08-28 12:45 | disposition home or self-care (01) ==
LOC: DI.S 12:44
DX: Z12.31 Encounter for screening mammogram for malignant neoplasm of breast (principal); Z80.3 Family history of malignant neoplasm of breast
CPT/HCPCS: 77067

== ENCOUNTER 2019-10-30 12:50 | Outpatient (CLI) | payer MEDICARE ==
--- NOTE | 2019-10-30 16:13 | MRI Report ---
Reason: NECK PAIN Procedure Date: 10/30/2019 Accession Number: [id number] / [id number] Procedure: MRI - Cervical Spine W/O CPT Code: Final Report FULL RESULT: EXAM: MRI CERVICAL SPINE WITHOUT CONTRAST. EXAM DATE: 10/30/2019 02:33 PM. CLINICAL HISTORY: Neck pain. COMPARISONS: CERVICAL SPINE COMPLETE 07/06/2018 5:18 PM. TECHNIQUE: Multiplanar, multisequence T1-weighted and fluid-sensitive sequences of the cervical spine without contrast. Other: None. FINDINGS: Neurologic Structures: The visualized posterior fossa structures are unremarkable. No signal abnormality in the visualized spinal cord. Alignment: Grade 1 anterolisthesis at C4-C5 by approximately 2 mm. Bone Marrow: No gross fractures or bone lesions. No marrow edema. Interspace Levels/Facets: The craniocervical junction is unremarkable. C1-C2: Unremarkable. C2-C3: Tiny posterior central disk protrusion. Mild left and moderate right facet arthropathy. Ligamentum flavum hypertrophy. Mild canal stenosis. No foraminal stenoses. C3-C4: Moderate left and mild right facet arthropathy. Mild left foraminal stenosis and mild right foraminal stenosis. C4-C5: Partial calcification of the disk. Mild to moderate disk space narrowing. Ankylosis at the facet joints. Mild foraminal stenoses. C5-C6: Degenerative endplate changes. Moderate disk space narrowing. Small disk bulge/osteophyte complex. Small right foraminal disk protrusion. Mild to moderate foraminal stenoses. Mild canal stenosis. Moderate to severe right and mild to moderate left foraminal stenoses. C6-C7: Minimal disk bulge. Mild to moderate left and moderate to severe right facet arthropathy. Mild to moderate right foraminal stenosis. C7-T1: Mild to moderate facet arthropathy. Musculature: Normal. No edema or fatty atrophy. Other: The thyroid gland is enlarged and heterogeneous. IMPRESSION: 1. Multilevel degenerative disk changes, osteophytosis, and facet arthropathy. The more significant levels are at C5-C6 and C6-C7. 2. Incidental finding of an enlarged and heterogeneous thyroid gland which may represent a goiter. Consider further evaluation with a follow-up thyroid ultrasound. 3. Grade 1 anterolisthesis at C4-C5. Ankylosis at the C4-C5 facet joints. RADIA
== END 2019-10-30 12:51 | disposition home or self-care (01) ==
LOC: DI 12:50
PROVIDERS: ATTEND Orthopaedic Surgery Orthopaedic Surgery of the Spine
DX: M50.21 Other cervical disc displacement, high cervical region (principal); M47.812 Spondylosis without myelopathy or radiculopathy, cervical region; M43.12 Spondylolisthesis, cervical region; M48.02 Spinal stenosis, cervical region; M50.321 Other cervical disc degeneration at C4-C5 level; M43.22 Fusion of spine, cervical region
CPT/HCPCS: 72141

== ENCOUNTER 2019-11-10 06:30 | Outpatient (CLI) | payer MEDICARE | END 2019-11-10 06:31 | disposition critical access hospital (66) | LOC: EMS 06:30 | PROVIDERS: ATTEND Surgery | DX: R07.89 Other chest pain (principal); R11.0 Nausea | CPT/HCPCS: A0425; A0427 ==

== ENCOUNTER 2019-11-10 07:02 | Emergency (ER) | payer MEDICARE ==
--- NOTE | 2019-11-10 07:21 | ED Physician Documentation ---
PD HPI CHEST PAIN - Stated complaint Stated Complaint: CHEST PAIN - History obtained from History obtained from: Patient, EMS - History of Present Illness Timing - onset: How many hours ago (09/07), Today (at 5:30 am, just after awakening and getting out of bed. Noted onset of pressure feeling in center of chest. Did not improve with getting up and walking around, sipped some water, and tried an antacid. She then took a NTG sinle tablet. No improvement from any of those. About 15-20 minutes later, starting to get anxious about the persistence, called EMS. She says the pressure feeling improved with EMS arrival (no interventions per se) then went completely away, and stayed gone enroute to the ER.) Timing - onset during: Sleep, Rest Timing - duration: Minutes (20-30 minutes, then seemed to just fade) Timing - details: Abrupt onset, Now resolved Quality: Tightness, Throbbing. No: Sharp, Tearing Location: Substernal Radiation: No: Jaw, Neck Improved by: No: Rest, Nitro, Antacids Worsened by: No: Exertion, Inspiration Associated symptoms: No: Shortness of air, Diaphoresis, Nausea, Feeling faint / dizzy Similar symptoms before: No diagnosis (She has had some episodes of similar substernal chest pain and pressure. She does not have it frequently. Most notable was an episode last year in November when she was out of town near [place]. She was hospitalized there and reportedly had a heart cath that showed no significant lesions. She had another episode in December 2018 and was in [facility] overnight with a rule out protocol and no subsequent heart testing per se but did have a consultation with Dr. Zaldivar who is her gas pump attendant. They thought more anxiety at that time and prescribed her metoprolol and Risperdal I believe it was. We did get the notes on the admission in December 06 [place].) Recently seen: Not recently seen Review of Systems Constitutional: denies: Fever, Chills Nose: denies: Rhinorrhea / runny nose, Congestion Throat: denies: Sore throat Cardiac: reports: Chest pain / pressure. denies: Palpitations, Pedal edema, Calf pain Respiratory: denies: Dyspnea, Cough, Hemoptysis Musculoskeletal: denies: Extremity swelling Neurologic: denies: Generalized weakness, Focal weakness, Numbness, Near syncope, Altered mental status, Headache PD PAST MEDICAL HISTORY - Past Medical History Past Medical History: Yes Cardiovascular: Congestive heart failure, Hypertension, High cholesterol Respiratory: COPD Neuro: None Endocrine/Autoimmune: Type 2 diabetes GI: None TRAFFIC DIVISION COMMANDING OFFICER: None, Ectopic : Nocturia, Frequency HEENT: None Psych: None Musculoskeletal: None Derm: None - Past Surgical History Past Surgical History: Yes General: Appendectomy /TRAFFIC DIVISION COMMANDING OFFICER: Hysterectomy, Other Cardiovascular: Cardiac catheterization - Present Medications Home Medications: Ambulatory Orders Medication Instructions Recorded Confirmed Aspirin Chewable [St Reyes 81 mg PO DAILY 08/26/13 08/26/13 Aspirin] Atorvastatin Calcium 20 mg PO DAILY 05/14/19 05/14/19 Lisinopril/Hydrochlorothiazide 1 each PO DAILY 05/14/19 05/14/19 [Lisinopril-Hctz 20-12.5 mg Tab] Nitroglycerin [Nitrostat] 0.4 mg SL ONCE 05/14/19 05/14/19 - Allergies Allergies/Adverse Reactions: Allergies Allergy/AdvReac Type Severity Reaction Status Date / Time meperidine HCl * AdvReac Unknown Nausea Verified 05/14/19 07:09 [From Demerol] niacin AdvReac Unknown Hives Verified 05/14/19 07:09 - Social History Does the pt smoke?: No Smoking Status: Never smoker Does the pt drink ETOH?: No Does the pt have substance abuse?: No - Immunizations Immunizations are current?: Yes - POLST Patient has POLST: No PD ED PE NORMAL - Vitals Vital signs reviewed: Yes - General General: Alert and oriented X 3, No acute distress, Well developed/nourished - HEENT HEENT: Pharynx benign - Neck Neck: Supple, no meningeal sign, No adenopathy - Cardiac Cardiac: RRR, No murmur - Respiratory Respiratory: Clear bilaterally - Abdomen Abdomen: Normal bowel sounds, Soft, Non distended, No organomegaly, Other (mild epigastric tenderness without guarding. ) - Derm Derm: Normal color, Warm and dry - Extremities Extremities: No deformity, No tenderness to palpate, Normal ROM s pain, No edema, No calf tenderness / cord - Neuro Neuro: Alert and oriented X 3, No motor deficit Results - Vitals Vitals: Vital Signs - 24 hr 11/10/19 11/10/19 11/10/19 07:05 07:39 09:00 Temperature 36.4 C L Heart Rate 72 63 65 Respiratory 16 19 Rate Blood Pressure 178/58 H 146/51 H 101/79 O2 Saturation 95 98 11/10/19 10:01 Temperature 36.7 C Heart Rate 61 Respiratory 24 Rate Blood Pressure 134/116 H O2 Saturation 98 Oxygen O2 Source Room air - EKG (time done) 07:04 Rate: Rate (enter#) (67) Rhythm: NSR Brooks: Normal Intervals: Normal PA QRS: Normal Ischemia: Normal ST segments. No: ST elevation c/w ischemia, ST depression Compare to prior EKG: Unchanged from prior EKG - Labs Labs: Laboratory Tests 11/10/19 11/10/19 11/10/19 07:29 07:29 07:29 WBC 7.0 RBC 4.24 Hgb 12.9 Hct 39.5 MCV 93.2 MCH 30.4 MCHC 32.7 RDW 12.6 Plt Count 201 MPV 10.0 Neut # (Auto) 4.9 Lymph # (Auto) 1.5 [place] # (Auto) 0.4 Eos # (Auto) 0.2 Baso # (Auto) 0.1 Absolute Nucleated RBC 0.00 Nucleated RBC % 0.0 Sodium 141 Potassium 4.0 Chloride 103 Carbon Dioxide 31 Anion Gap 7.0 BUN 17 Creatinine 0.9 Estimated GFR (MDRD) 61 L Glucose 136 H Calcium 9.4 Total Bilirubin 0.6 AST 20 ALT 23 Alkaline Phosphatase 49 Troponin I High Sens 3.3 B-Natriuretic Peptide Total Protein 6.9 Albumin 3.7 Globulin 3.2 Albumin/Globulin Ratio 1.2 Lipase 27 11/10/19 11/10/19 07:29 08:59 WBC RBC Hgb Hct MCV MCH MCHC RDW Plt Count MPV Neut # (Auto) Lymph # (Auto) [place] # (Auto) Eos # (Auto) Baso # (Auto) Absolute Nucleated RBC Nucleated RBC % Sodium Potassium Chloride Carbon Dioxide Anion Gap BUN Creatinine Estimated GFR (MDRD) Glucose Calcium Total Bilirubin AST ALT Alkaline Phosphatase Troponin I High Sens 3.6 B-Natriuretic Peptide 40 Total Protein Albumin Globulin Albumin/Globulin Ratio Lipase - Rads (name of study) chestx ray Radiology: Prelim report reviewed (No acute cardiopulmonary process), See rad report PD MEDICAL DECISION MAKING - ED course Complexity details: reviewed old records (Admission summary and consultation report from [facility] for [facility] from December 2018), reviewed results, considered differential, d/w patient Departure - Departure Disposition: 01 Home, Self Care Clinical Impression: Chest pressure Clinical Impression: (Ruled Out): Myocardial infarction Condition: Stable Record reviewed to determine appropriate education?: Yes Instructions: ED Chest Pain Atypical Unkn Cause Follow-Up: NINA ROYAL ARNP [Primary Care Provider] - Comments: Continue usual medications. No signs of heart injury or heart attack at this time. I do not know the cause of your chest pressure this morning per se. Cons ider possibly some gastroesophageal cause though it did not get better with antacid per se. Normal diet and activity. Return if consistent or recurrent problems. Discharge Date/Time: 11/10/19 10:04
[2019-11-10 07:47] LABS: ALBUMIN 3.7 g/dL (3.2-5.5); ALBUMIN/GLOBULIN RATIO 1.2 (1.0-2.2); BILIRUBIN,TOTAL 0.6 mg/dL (0.2-1.0); CALCIUM 9.4 mg/dL (8.5-10.3); CREATININE 0.9 mg/dL (0.4-1.0); TOTAL PROTEIN 6.9 g/dL (6.7-8.2)
--- NOTE | 2019-11-10 07:47 | XRAY Report ---
Reason: Chest Pain Procedure Date: 11/10/2019 Accession Number: [id number] / [id number] Procedure: XR - Chest 1 View X-Ray CPT Code: 39458 Final Report FULL RESULT: EXAM: CHEST RADIOGRAPHY EXAM DATE: 11/10/2019 07:33 AM. CLINICAL HISTORY: Chest Pain. COMPARISON: CHEST 1 VIEW 07/03/2019 10:10 PM. TECHNIQUE: 1 view. FINDINGS: Lungs/Pleura: No focal opacities. No effusions Mediastinum: Stable Other: None. IMPRESSION: No acute radiographic cardiopulmonary process RADIA
[2019-11-10 07:52] LABS: BASOPHILS # (AUTO) 0.1 10^3/uL (0.0-0.1); BASOPHILS % (AUTO) 0.9 %; EOSINOPHILS # (AUTO) 0.2 10^3/uL (0.0-0.7); EOSINOPHILS % (AUTO) 2.1 %; HGB - HEMOGLOBIN 12.9 g/dL (12.0-16.0); LYMPHOCYTES # (AUTO) 1.5 10^3/uL (1.5-3.5); MEAN CORPUSCULAR HEMOGLOBIN 30.4 pg (27.0-31.0); MEAN CORPUSCULAR HGB CONC 32.7 g/dL (32.0-36.0); MEAN CORPUSCULAR VOLUME 93.2 fL (81.0-99.0); MONOCYTES # (AUTO) 0.4 10^3/uL (0.0-1.0); MONOCYTES % (AUTO) 5.8 %; NEUTROPHILS # (AUTO) 4.9 10^3/uL (1.5-6.6); NEUTROPHILS % (AUTO) 69.6 %; PLT - PLATELET COUNT 201 10^3/uL (130-450); RED BLOOD COUNT 4.24 10^6/uL (4.20-5.40); RED CELL DISTRIBUTION WIDTH 12.6 % (12.0-15.0)
[2019-11-10 10:04] VITALS: BP 134/116
== END 2019-11-10 10:04 | disposition home or self-care (01) ==
LOC: EDUNIT# → ED 07:02
DX: R07.89 Other chest pain (principal); I10 Essential (primary) hypertension; E11.9 Type 2 diabetes mellitus without complications; Z79.82 Long term (current) use of aspirin
CPT/HCPCS: 36415; 71045; 80053; 83690; 83880; 84484; 85025; 93005; 99284

== ENCOUNTER 2019-11-23 12:32 | Outpatient (CLI) | payer MEDICARE ==
--- NOTE | 2019-11-24 08:48 | Ultrasound Report ---
Reason: ABN MRI Procedure Date: 11/23/2019 Accession Number: [id number] / [id number] Procedure: US - Head or Neck Soft Tissue CPT Code: Final Report FULL RESULT: EXAM: THYROID ULTRASOUND EXAM DATE: 11/23/2019 01:44 PM. CLINICAL HISTORY: Abnormal thyroid on MRI. COMPARISON: None. TECHNIQUE: Real time sonographic imaging of the thyroid was performed by the stabilizing machine operator. Multiple insurance claims representative static images were saved for review. FINDINGS: THYROID GLAND: Right Lobe: 7.4 x 3.1 x 3.3 cm, volume 40 cc. Markedly enlarged and diffusely heterogeneous secondary to innumerable confluent nodules. The majority of the nodules are spongiform in appearance. Right Lobe Nodules: Innumerable confluent nodules, not individually measured. Left Lobe: 8.0 x 3.6 x 4.0 cm, volume 60 cc. Markedly enlarged and diffusely heterogeneous secondary to innumerable confluent nodules. The majority of the nodules are spongiform in appearance. Left Lobe Nodules: Innumerable confluent nodules, not individually measured. Isthmus: 4 cm AP. Normal background echotexture. Isthmic Nodules: None. LYMPH NODES: No adenopathy demonstrated in the central or lateral compartment. OTHER: None. IMPRESSION: 1. Markedly enlarged thyroid gland secondary to innumerable confluent nodules consistent with multinodular goiter. 2. Nodules were not individually measured but no dominant or focal high suspicion appearing nodule identified. Management recommendations are based on 2015 [place] [employer] Management Guidelines for Adult Patients with Thyroid Nodules and Differentiated Thyroid Cancer. RADIA
== END 2019-11-23 12:33 | disposition home or self-care (01) ==
LOC: DI 12:32
PROVIDERS: ATTEND Nurse Practitioner Family
DX: E04.2 Nontoxic multinodular goiter (principal)
CPT/HCPCS: 76536

== ENCOUNTER 2019-11-27 10:04 | Outpatient (CLI) | payer MEDICARE | END 2019-11-27 10:05 | disposition EMS.NT | LOC: EMS 10:04 | PROVIDERS: ATTEND Surgery | DX: R00.2 Palpitations (principal) ==

== ENCOUNTER 2019-11-27 14:48 | Outpatient (CLI) | payer MEDICARE | END 2019-11-27 23:59 | disposition EMS.NT | LOC: EMS 14:48 | PROVIDERS: ATTEND Surgery | DX: R00.0 Tachycardia, unspecified (principal) ==

== ENCOUNTER 2019-12-21 12:05 | Outpatient (CLI) | payer MEDICARE ==
--- NOTE | 2019-12-21 13:16 | XRAY Report ---
Reason: LEFT HIP PAIN Procedure Date: 12/21/2019 Accession Number: [id number] / [id number] Procedure: XR - Hips 2V BILAT CPT Code: Final Report FULL RESULT: EXAM: BILATERAL HIP RADIOGRAPHY EXAM DATE: 12/21/2019 12:47 PM. CLINICAL HISTORY: Left hip pain. COMPARISON: None. TECHNIQUE: 2 views each. FINDINGS: No fracture or dislocation detected. Bilateral moderate narrowing of the hip joint spaces, slightly worse on the left. No femoral head collapse. No dislocation. The sacroiliac joints appear intact. Moderate degenerative changes of the imaged portion of lower lumbar spine. IMPRESSION: Moderate degenerative changes at the hips, slightly worse on the left. RADIA
== END 2019-12-21 12:06 | disposition home or self-care (01) ==
LOC: DI 12:05
PROVIDERS: ATTEND Nurse Practitioner Family
DX: M16.0 Bilateral primary osteoarthritis of hip (principal)
CPT/HCPCS: 73521

== ENCOUNTER 2020-02-04 05:11 | Outpatient (CLI) | payer MEDICARE | END 2020-02-04 05:12 | disposition EMS.NT | LOC: EMS 05:11 | PROVIDERS: ATTEND Surgery | DX: R20.0 Anesthesia of skin (principal); R11.0 Nausea; M54.2 Cervicalgia ==

== ENCOUNTER 2020-08-04 03:28 | Outpatient (CLI) | payer MEDICARE | END 2020-08-04 03:29 | disposition EMS.NT | LOC: EMS 03:28 | PROVIDERS: ATTEND Surgery | DX: R51.9 Headache, unspecified (principal) ==

== ENCOUNTER 2020-09-20 10:48 | Outpatient (CLI) | payer MEDICARE ==
--- NOTE | 2020-09-23 07:54 | Ultrasound Report ---
LIMITED ULTRASOUND OF LEFT BREAST AND AXILLA: 09/20/2020 CLINICAL: Focal left breast pain. Comparison is made to exams dated: 09/20/2020 mammogram, 08/28/2019 mammogram, 08/17/2018 mammogram, 08/16/2017 mammogram, and 08/15/2014 ultrasound - [facility]. Color flow and real-time ultrasound of the left breast 12 o'clock, and axilla regions were performed. Schaefer scale images of the real-time examination were reviewed. No significant abnormalities were seen sonographically in the left breast or axilla in the regions of concern. IMPRESSION: NEGATIVE There is no sonographic evidence of malignancy. A 1 year screening mammogram is recommended. Exam findings were conveyed to the patient. Patient is advised to monitor for significant change. Cli nical follow-up as needed. This exam was interpreted at Station ID: [id number]. Electronically Signed By: David Archuleta M.D. slc/:09/20/2020 13:17:47 Ultrasound BI-RADS: 1 Negative BI-RADS CATEGORY: (1) - 1 RECOMMENDATION: (ANNUAL) - Recommend routine annual screening mammography. [id number] 1 year screening LATERALITY: (B)
--- NOTE | 2020-09-23 07:54 | Mammography Report ---
BILATERAL DIGITAL DIAGNOSTIC MAMMOGRAM 3D/2D: 09/20/2020 CLINICAL: Left axilla soreness and painful when pressure is applied. Comparison is made to exams dated: 08/28/2019 mammogram, 08/17/2018 mammogram, 08/16/2017 mammogram, 08/20/2016 mammogram, and 08/16/2015 mammogram - [facility]. The tissue of both b reasts is heterogeneously dense. This may lower the sensitivity of mammography. No significant masses, calcifications, or other findings are seen in either breast. Benign calcificat ions in both breasts. IMPRESSION: INCOMPLETE: NEEDS ADDITIONAL IMAGING EVALUATION No mammographic evidence of malignancy. A targeted ultrasound of the left focal axillary pain is recommended and will immediately follow. This exam was interpreted at Station ID: [id number]. NOTE: For mammograms, a report in lay terms will be sent to the patient. Approximately 15% of breast malignancies will not be visualized mammographically. In the management of a palpable breast mass, a negative mammogram must not discourage biopsy of a clinically suspicious lesion. Electronically Signed By: David Archuleta M.D. slc/:09/20/2020 11:48:33 ACR BI-RADS Category 0: Incomplete 3340F PARENCHYMAL PATTERN: (D) - The breast(s) demonstrate(s) heterogeneously dense fibroglandular jose de jesus vega. BI-RADS CATEGORY: (0) - 0 Ultrasound 20200920 Immediate follow-up LATERALITY: (B)
== END 2020-09-20 10:49 | disposition home or self-care (01) ==
LOC: DI 10:48
PROVIDERS: ATTEND Nurse Practitioner Family
DX: R92.8 Other abnormal and inconclusive findings on diagnostic imaging of breast (principal)

== ENCOUNTER 2020-10-27 07:34 | Outpatient (CLI) | payer MEDICARE | END 2020-10-27 07:35 | disposition left against medical advice (07) | LOC: EMS 07:34 | DX: R00.0 Tachycardia, unspecified (principal) ==

== ENCOUNTER 2021-05-25 01:23 | Outpatient (CLI) | payer MEDICARE | END 2021-05-25 01:24 | disposition critical access hospital (66) | LOC: EMS 01:23 | DX: R07.9 Chest pain, unspecified (principal) | CPT/HCPCS: A0425; A0427 ==

== ENCOUNTER 2021-05-25 01:58 | Emergency (ER) | payer MEDICARE ==
[2021-05-25 02:27] LABS: BASOPHILS # (AUTO) 0.1 10^3/uL (0.0-0.1); EOSINOPHILS # (AUTO) 0.2 10^3/uL (0.0-0.7); EOSINOPHILS % (AUTO) 2.9 %; HCT - HEMATOCRIT 39.1 % (37.0-47.0); HGB - HEMOGLOBIN 12.9 g/dL (12.0-16.0); LYMPHOCYTES # (AUTO) 2.1 10^3/uL (1.5-3.5); MEAN CORPUSCULAR HEMOGLOBIN 29.9 pg (27.0-31.0); MEAN CORPUSCULAR VOLUME 90.7 fL (81.0-99.0); MEAN PLATELET VOLUME 10.3 fL (7.9-10.8); MONOCYTES # (AUTO) 0.5 10^3/uL (0.0-1.0); NEUTROPHILS # (AUTO) 4.1 10^3/uL (1.5-6.6); NEUTROPHILS % (AUTO) 58.8 %; PLT - PLATELET COUNT 180 10^3/uL (130-450); RED BLOOD COUNT 4.31 10^6/uL (4.20-5.40); RED CELL DISTRIBUTION WIDTH 12.7 % (12.0-15.0)
[2021-05-25] MEDS ORDERED: SODIUM CHLORIDE 0.9% 1,000 ML IV STA ×2 (02:30→05:03)
--- NOTE | 2021-05-25 02:32 | ED Physician Documentation ---
PD HPI CHEST PAIN - Stated complaint Stated Complaint: CP - Chief complaint Chief Complaint: Cardiac - History obtained from History obtained from: Patient - History of Present Illness Timing - onset: Enter time (2330), Last night Timing - onset during: Rest Timing - duration: Minutes (10) Timing - details: Abrupt onset, Now resolved Pain level max: 10 Pain level now: 0 Quality: Pressure, Sharp Location: Substernal, Left chest Radiation: No: Jaw, Neck, Back, Abdominal, Left upper extremity, Right upper extremity Improved by: Nitro Associated symptoms: No: Shortness of air, Diaphoresis, Nausea, Vomiting, Feeling faint / dizzy, General Weakness, Palpitations, Cough Similar symptoms before: Diagnosis (angina and atypical chest pain) Recently seen: Not recently seen Review of Systems Constitutional: denies: Fever Eyes: denies: Decreased vision Ears: denies: Ear pain Nose: denies: Rhinorrhea / runny nose, Congestion Throat: denies: Sore throat Cardiac: reports: Chest pain / pressure. denies: Palpitations, Pedal edema, Calf pain Respiratory: denies: Dyspnea, Cough, Wheezing GI: reports: Nausea. denies: Abdominal Pain, Vomiting, Constipation, Diarrhea : reports: Frequency. denies: Dysuria Skin: denies: Rash Musculoskeletal: denies: Neck pain, Back pain, Extremity pain Neurologic: denies: Generalized weakness, Focal weakness, Numbness Endocrine: reports: Polydypsia, Polyuria PD PAST MEDICAL HISTORY - Past Medical History Cardiovascular: Congestive heart failure, Hypertension, High cholesterol Respiratory: COPD Neuro: None Endocrine/Autoimmune: Type 2 diabetes GI: None HEEL SANDER RUBBER: None, Ectopic : Nocturia, Frequency HEENT: None Psych: None Musculoskeletal: None Derm: None - Past Surgical History Past Surgical History: Yes General: Appendectomy /HEEL SANDER RUBBER: Hysterectomy, Other Cardiovascular: Cardiac catheterization - Present Medications Home Medications: Ambulatory Orders Medication Instructions Recorded Confirmed Aspirin Chewable [St Reyes 81 mg PO DAILY 08/26/13 08/26/13 Aspirin] Atorvastatin Calcium 20 mg PO DAILY 05/14/19 05/14/19 Lisinopril/Hydrochlorothiazide 1 each PO DAILY 05/14/19 05/14/19 [Lisinopril-Hctz 20-12.5 mg Tab] Nitroglycerin [Nitrostat] 0.4 mg SL ONCE 05/14/19 05/14/19 Sucralfate [Carafate] 1 gm PO ACHS #60 tablet 05/25/21 - Allergies Allergies/Adverse Reactions: Allergies Allergy/AdvReac Type Severity Reaction Status Date / Time meperidine HCl * AdvReac Unknown Nausea Verified 05/14/19 07:09 [From Demerol] niacin AdvReac Unknown Hives Verified 05/14/19 07:09 - Social History Does the pt smoke?: No Smoking Status: Never smoker Does the pt drink ETOH?: No Does the pt have substance abuse?: No - Immunizations Immunizations are current?: Yes - POLST Patient has POLST: No PD ED PE NORMAL - Vitals Vital signs reviewed: Yes (hypertensive mild with wide pulse pressure) - General General: Alert and oriented X 3, No acute distress, Well developed/nourished - HEENT HEENT: Atraumatic, PERRL - Neck Neck: Supple, no meningeal sign, No bony TTP - Cardiac Cardiac: RRR, No murmur - Respiratory Respiratory: No respiratory distress, Clear bilaterally - Abdomen Abdomen: Normal bowel sounds, Soft, Non tender, Non distended, No organomegaly - Back Back: No CVA TTP, No spinal TTP - Derm Derm: Normal color, Warm and dry, No rash - Extremities Extremities: No deformity, No edema - Neuro Neuro: Alert and oriented X 3, manager energy 2-12 intact, No motor deficit, No sensory deficit, Normal speech Eye Opening: Spontaneous Motor: Obeys Commands Verbal: Oriented GCS Score: 15 - Psych Psych: Normal mood, Normal affect Results - Vitals Vitals: Vital Signs - 24 hr 05/25/21 05/25/21 05/25/21 02:12 02:18 02:48 Temperature 35.9 C L Heart Rate 77 78 59 L Respiratory 14 18 12 Rate Blood Pressure 158/62 H 138/47 H 138/47 H O2 Saturation 98 95 95 05/25/21 04:16 Temperature Heart Rate 75 Respiratory 19 Rate Blood Pressure 155/63 H O2 Saturation 93 Oxygen O2 Source Room air - EKG (time done) 0203 Rate: Rate (enter#) (69) Rhythm: NSR Ischemia: Normal ST segments Compare to prior EKG: Unchanged from prior EKG (SPT 11-10-2019 no changes) Computer interpretation: Agree with computer 0316 Rate: Rate (enter#) (100) Rhythm: Sinus tachycardia [place]: LAD Ischemia: ST depression Compare to prior EKG: Changed from prior EKG (SPT ealier today the rate has increased and there is a lateral strain pattern with subtle ST depression) Computer interpretation: Agree with computer - Labs Labs: Laboratory Tests 05/25/21 05/25/21 05/25/21 02:21 02:21 02:21 WBC 7.0 RBC 4.31 Hgb 12.9 Hct 39.1 MCV 90.7 MCH 29.9 MCHC 33.0 RDW 12.7 Plt Count 180 MPV 10.3 Neut # (Auto) 4.1 Lymph # (Auto) 2.1 [place] # (Auto) 0.5 Eos # (Auto) 0.2 Baso # (Auto) 0.1 Absolute Nucleated RBC 0.00 Nucleated RBC % 0.0 Sodium 138 Potassium 3.4 L Chloride 101 Carbon Dioxide 25 Anion Gap 12.0 BUN 20 Creatinine 1.0 Estimated GFR (MDRD) 53 L Glucose 123 H Calcium 9.3 Total Bilirubin 0.5 AST 17 ALT 21 Alkaline Phosphatase 65 Troponin I High Sens 3.4 Total Protein 7.5 Albumin 4.2 Globulin 3.3 Albumin/Globulin Ratio 1.3 Lipase 28 05/25/21 05:01 WBC RBC Hgb Hct MCV MCH MCHC RDW Plt Count MPV Neut # (Auto) Lymph # (Auto) [place] # (Auto) Eos # (Auto) Baso # (Auto) Absolute Nucleated RBC Nucleated RBC % Sodium Potassium Chloride Carbon Dioxide Anion Gap BUN Creatinine Estimated GFR (MDRD) Glucose Calcium Total Bilirubin AST ALT Alkaline Phosphatase Troponin I High Sens 4.5 Total Protein Albumin Globulin Albumin/Globulin Ratio Lipase Procedures - IVC sono (time) 0225 Bedside IVC sono: IVC measures (cm) (0.88), Dehydration (est 2 liter deficit) PD MEDICAL DECISION MAKING - ED course Complexity details: reviewed old records, reviewed results, re-evaluated patient, considered differential, d/w patient ED course: 80-year-old female with a prior history of atypical chest pain is developed episode of chest pain again today and she arrives to the emergency department after having received nitroglycerin in the field with resolution of her symptoms. She has a normal-appearing electrocardiogram her on arrival to the emergency department and she is found to be dehydrated on interrogation of her inferior vena cava she does have diabetes and she has had polyuria polydipsia as well. IV saline is administered.The patient has return of her pain and a second electrocardiogram is obtained this time the rate is over 100 and there is a mild strain pattern laterally. A second troponin is again negative. This patient has had symptoms over the years similar to this she has been investigated including a normal-appearing cardiac catheterization. She does have nitroglycerin which has controlled her symptoms. Tonight she still has a brick-like sensation to her chest and we are giving her a GI cocktail. The patient has improvement in her symptoms and she indicates that she has been taking ibuprofen over the past several days and she does not always take it with food. She did going get some Mylanta today because she was having heartburn and she has not taken it. Here in the emerge department today she is administered Protonix and Carafate. Departure - Departure Disposition: 01 Home, Self Care Clinical Impression: Atypical chest pain Gastroesophageal reflux disease Qualifiers: Esophagitis presence: esophagitis presence not specified Qualified Code(s): K21.9 - Gastro-esophageal reflux disease without esophagitis Condition: Stable Instructions: ED GERD Follow-Up: VERNA CUMMINS ARNP [Primary Care Provider] - Prescriptions: Sucralfate [Carafate] 1 gm PO ACHS #60 tablet Comments: [place], today it appears that the pressure you are having in your chest is related to your esophagus or your stomach and likely related to the use of ibup rofen. The recommendation is to stop using the ibuprofen and if you ever do take it again make certain you take it with food. Today you have been given a dose of medication to reduce the acid in your stomach and another medication to stopper maker helper the healing of the esophagus and stomach. My recommendation is to take Pepcid AC on a regular basis for 2 weeks and to take the Carafate on a regular basis for the same period of time. The expectation is that your symptoms will be controlled during this time. If you have recurrence of your symptoms when you are done with your treatment follow-up with your regular doctor and restart the medicine for the acid in your stomach.
[2021-05-25 02:40] LABS: ALBUMIN 4.2 g/dL (3.2-5.5); ALBUMIN/GLOBULIN RATIO 1.3 (1.0-2.2); BILIRUBIN,TOTAL 0.5 mg/dL (0.2-1.0); CALCIUM 9.3 mg/dL (8.5-10.3); POTASSIUM 3.4 mmol/L (3.5-5.0); TOTAL PROTEIN 7.5 g/dL (6.7-8.2)
[2021-05-25] MEDS ORDERED: NITROGLYCERIN 2% PASTE TOP STA (03:23)
[2021-05-25] MEDS ORDERED: MAG HYDROX/AL HYDROX/SIMETH 30 ML UDC PO STA (05:39)
[2021-05-25] MEDS ORDERED: LIDOCAINE VISCOUS 2% 15 ML UDC MM STA (05:39)
[2021-05-25] MEDS ORDERED: SUCRALFATE 1 GM/10 ML UDC PO STA (06:13)
[2021-05-25] MEDS ORDERED: PANTOPRAZOLE 40 MG TABLET PO STA (06:13)
[2021-05-25 06:58] VITALS: BP 142/71
--- NOTE | 2021-05-25 08:27 | XRAY Report ---
PROCEDURE: Chest 1 View X-Ray INDICATIONS: chest pain TECHNIQUE: One view of the chest was acquired. COMPARISON: 11/10/2019, 07/03/2019 FINDINGS: Surgical changes and devices: None. Lungs and pleura: No pleural effusions or pneumothorax. Lungs are clear, yet hyperexpanded. Mediastinum: Calcification is seen of the aortic arch. Bones and chest wall: No suspicious bony lesions. Age-appropriate degenerative changes are seen. Overlying soft tissues appear unremarkable. IMPRESSION: Hyperexpanded lungs are seen, without an acute cardiopulmonary abnormality seen. Note: No significant discrepancy from the preliminary report. Reviewed by: Prasanna Gamino MD on 05/25/2021 7:25 AM HERMILA Approved by: Prasanna Gamino MD on 05/25/2021 7:25 AM HERMILA Station ID: [id number]
== END 2021-05-25 06:55 | disposition home or self-care (01) ==
LOC: EDUNIT# → SUPCPDRO 01:58 → ED 01:58
DX: K21.9 Gastro-esophageal reflux disease without esophagitis (principal); E86.0 Dehydration; E11.9 Type 2 diabetes mellitus without complications; I11.0 Hypertensive heart disease with heart failure; I50.9 Heart failure, unspecified; J44.9 Chronic obstructive pulmonary disease, unspecified; E78.00 Pure hypercholesterolemia, unspecified
CPT/HCPCS: 36415; 71045; 80053; 83690; 84484; 85025; 93005; 96360; 96361; 99284; A9270

== ENCOUNTER 2021-09-21 12:09 | Outpatient (CLI) | payer MEDICARE ==
--- NOTE | 2021-09-23 08:21 | Mammography Report ---
BILATERAL DIGITAL SCREENING MAMMOGRAM 3D/2D: 09/21/2021 CLINICAL: Routine screening. Family history of breast cancer. Comparison is made to exams dated: 09/20/2020 mammogram, 08/28/2019 mammogram, 08/17/2018 mammogram, and 08/20/2016 mammogram - [facility]. The tissue of both breasts is heterogeneous ly dense. This may lower the sensitivity of mammography. No significant masses, calcifications, or other findings are seen in either breast. There has been no significant interval change. IMPRESSION: NEGATIVE There is no mammographic evidence of malignancy. A 1 year screening mammogram is recommended. This exam was interpreted at Station ID: [id number]. NOTE: For mammograms, a report in lay terms will be sent to the patient. Approximately 15% of breast malignancies will not be visualized mammographically. In the management of a palpable breast mass, a negative mammogram must not discourage biopsy of a clinically suspicious lesion. Electronically Signed By: Kristofer phoenix/syd:09/22/2021 07:45:20 ACR BI-RADS Category 1: Negative 3341F PARENCHYMAL PATTERN: (D) - The breast(s) demonstrate(s) heterogeneously dense fibroglandular jose de jesus vega. BI-RADS CATEGORY: (1) - 1 RECOMMENDATION: (ANNUAL) - Recommend routine annual screening mammography. [id number] 1 year screening LATERALITY: (B)
== END 2021-09-21 12:10 | disposition home or self-care (01) ==
LOC: DI.S 12:09
DX: Z12.31 Encounter for screening mammogram for malignant neoplasm of breast (principal); Z80.3 Family history of malignant neoplasm of breast

== ENCOUNTER 2021-10-16 13:02 | Outpatient (CLI) | payer MEDICARE ==
[~2021-10-16 13:02] MED LIST: lidocaine 1% 20 ML MDV ONE
[2021-10-16] MEDS ORDERED: lidocaine 1% 20 ML MDV SUBQ ONE (14:37)
--- NOTE | 2021-10-16 15:49 | Ultrasound Report ---
PROCEDURE: FNA Bx w/US Gnd 1st les INDICATIONS: NONTOXIC MULTINODULAR GOITER TECHNIQUE: The indications, alternatives, benefits, risks, and complications of the procedure were explained to the patient. Written informed consent was obtained and placed in the chart. The thyroid region was examined sonographically and a site was chosen for ultrasound guided percutaneous sampling. The skin was prepared and draped in the usual fashion, and anesthetized with 1% lidocaine infiltrated from th e skin down to the thyroid gland. Multiple passes were then performed, with contents emptied into an appropriate pathology specimen container. A bandage was applied to the area of access at completion of the study. COMPARISON: [facility] thyroid ultrasound 07/15/2021 FINDINGS: Location(s) of lesion(s) sampled: Inferior left thyroid lobe. [place]: 25 gauge hypodermic needles. Number of passes: 6 Medications: 1% lidocaine for local anaesthesia. Complications: None. IMPRESSION: 1. Successful ultrasound-guided thyroid nodule fine needle aspiration, with cytology results pending. Reviewed by: Oscar Mayers MD on 10/16/2021 3:48 PM PST Approved by: Oscar Mayers MD on 10/16/2021 3:48 PM PST Station ID: [id number]
--- NOTE | 2021-10-17 00:52 | Ultrasound Report ---
PROCEDURE: FNA Bx w/US Gdn Ea Addl INDICATIONS: NONTOXIC MULTINODULAR GOITER TECHNIQUE: The indications, alternatives, benefits, risks, and complications of the procedure were explained to the patient. Written informed consent was obtained and placed in the chart. The thyroid region was examined sonographically and a site was chosen for ultrasound guided percutaneous sampling. The skin was prepared and draped in the usual fashion, and anesthetized with 1% lidocaine infiltrated from th e skin down to the thyroid gland. Multiple passes were then performed, with contents emptied into an appropriate pathology specimen container. A bandage was applied to the area of access at completion of the study. COMPARISON: [facility] thyroid ultrasound 07/15/2021 FINDINGS: Location(s) of lesion(s) sampled: Mid to superior right lobe. [place]: 25 gauge hypodermic needles. Number of passes: 6 Medications: 1% lidocaine for local anaesthesia. Complications: None. Evaluation of the inferior right lobe in the area of the previously measured large nodule demonstrate s heterogeneous thyroid parenchyma without a definite discrete nodule corresponding to the finding on prior ultrasound. IMPRESSION: 1. Successful ultrasound-guided thyroid nodule fine needle aspiration of a right mid to superior nodu le, with cytology results pending. 2. Previously reported large nodule in the inferior right lobe was not discretely visualized at the t maicol of biopsy. Heterogeneous thyroid parenchyma demonstrated consistent with multinodular goiter. Rec ommend continued surveillance and attention to this region on follow-up, following results of the cur rent bilateral biopsy. Reviewed by: Oscar Mayers MD on 10/17/2021 12:52 AM PST Approved by: Oscar Mayers MD on 10/17/2021 12:52 AM PST Station ID: [id number]
== END 2021-10-16 13:03 | disposition home or self-care (01) ==
LOC: DI 13:02
PROVIDERS: ATTEND Surgery
DX: E04.2 Nontoxic multinodular goiter (principal)
CPT/HCPCS: 10005; 10006

== ENCOUNTER 2022-01-01 06:09 | Day surgery (SDC) | payer MEDICARE ==
[2022-01-01] MEDS ORDERED: PHENYLEPHRINE 2.5% OPHTH 2 ML DROPS ONE (06:28)
[2022-01-01] MEDS ORDERED: CYCLOPENTOLATE 1% OPHTH DROPS 2 ML ONE (06:28)
[2022-01-01] MEDS ORDERED: PROPARACAINE 0.5% OPHTH DROPS 15 ML ONE (06:28)
[2022-01-01] MEDS ORDERED: KETOROLAC 0.45% OPHTH DROPS ONE (06:29)
[2022-01-01] MEDS ORDERED: TRIAMCIN/MOXIFLOX OPHTHALMIC 0.6 ML VIAL IO ONE ×3 (07:03→11:28)
[2022-01-01] MEDS ORDERED: BRIMONIDINE 0.2% OPHTH DROPS 5 ML ONE (07:03)
[2022-01-01] MEDS ORDERED: EPINEPHrine 1 MG/ML AMP ONE (07:03)
[2022-01-01] MEDS ORDERED: BSS/LIDOCAINE/EPINEPHRINE 1 ML VIAL ONE (07:04)
[2022-01-01] MEDS ORDERED: TIMOLOL 0.5% OPHTH DROPS ONE (07:04)
--- NOTE | 2022-01-01 07:08 | ANESTHESIA ---
Pre-Anesthesia VS, & Labs - Diagnosis senile combined cataract left eye - Procedure left eye cataract extraction with IOL implant Vital Signs: Temp Pulse Resp BP Pulse Ox 36.5 C 79 16 160/60 H 99 01/01/22 06:43 01/01/22 06:43 01/01/22 06:43 01/01/22 06:43 01/01/22 06:43 Height: 5 ft 2 in Weight (kg): 72.4 kg Body Mass Index: 29.2 BMI Classification: Overweight - NPO >8 hours - Is Patient ?: No Home Medications and Allergies Home Medications: Ambulatory Orders Alprazolam [Xanax] 0.25 mg PO DAILY PRN 12/31/21 Aspirin Chewable [St Reyes Aspirin] 81 mg PO DAILY 08/26/13 Atorvastatin Calcium 20 mg PO DAILY 05/14/19 Lisinopril/Hydrochlorothiazide [Lisinopril-Hctz 20-12.5 mg Tab] 1 each PO DAILY 05/14/19 Nitroglycerin [Nitrostat] 0.4 mg SL ONCE 05/14/19 Alprazolam [Xanax] 0.25 mg PO DAILY PRN 12/31/21 Allergies/Adverse Reactions: Allergies Allergy/AdvReac Type Severity Reaction Status Date / Time meperidine HCl * AdvReac Unknown Nausea Verified 05/14/19 07:09 [From Demerol] niacin AdvReac Unknown Hives Verified 05/14/19 07:09 Anes History & Medical History - Anesthetic History Anesthesia Complications: reports: No previous complications - Medical History Cardiovascular: reports: Hypertension, High cholesterol, Angina (unknown cause, negative heart cath), Arrhythmia Pulmonary: reports: None Gastrointestinal: reports: None Urinary: reports: None Neuro: reports: None Musculoskeletal: reports: Other (issue with neck) Endocrine/Autoimmune: reports: Type 2 diabetes (diet controlled) Blood Disorders: reports: None Skin: reports: Rosacea Smoking Status: Former smoker (quit 5 years ago) Psychosocial: reports: Anxiety History of Cancer?: No - Surgical History General: reports: Appendectomy Cardiothoracic: reports: Cardiac catheterization Gynecologic: reports: Oophrectomy, Other Orthopedic: reports: Carpal Tunnel surgery Exam General: Alert, Oriented x3, Cooperative, No acute distress Dental: WNL Mouth Openin Fingerbreadth Neck Mobility: Normal Mallampati classification: II Thyromental Distance: 4-6 cm Mental/Cognitive Status: Alert/Oriented X3, Normal for patient Plan Anesthesia Type: MAC Consent for Procedure(s) Verified and Reviewed: Yes Code Status: Attempt Resuscitation ASA classification: 2-Mild systemic disease Is this case an emergency?: No
[2022-01-01] MEDS ORDERED: PROPARACAINE 0.5% OPHTH DROPS 15 ML EACHEYE ONE (07:39)
[2022-01-01] MEDS ORDERED: BRIMONIDINE 0.2% OPHTH DROPS 5 ML OPTH ONE (07:39)
[2022-01-01] MEDS ORDERED: BSS/LIDOCAINE/EPINEPHRINE 1 ML SYRINGE IO ONE (07:39)
[2022-01-01] MEDS ORDERED: TIMOLOL 0.5% OPHTH DROPS OPTH ONE (07:39)
[2022-01-01] MEDS ORDERED: EPINEPHrine 1 MG/ML AMP IR ONE (07:39)
[2022-01-01] MEDS ORDERED: VANCOMYCIN OPHTHALMI 8MG/0.8ML 8 MG/0.8 ML SYRINGE IO ONE (07:40)
[2022-01-01] MEDS ORDERED: MIDAZOLAM 2 MG/2 ML VIAL ONE (07:42)
[2022-01-01] MEDS ORDERED: LACTATED RINGERS 850 ML IV ONE (07:53)
--- NOTE | 2022-01-01 08:05 | OPERATIVE REPORT ---
Operative Report - Other Other Information/Narrative: Date of Surgery: 01/01/22 Preop Dx: Visually significant cataract left eye. This was the first cataract surgery. Postop Dx: Same Procedure: Phacoemulsification with posterior chamber intraocular lens implant left eye Surgeon: Dr. Carlos Up Anesthesia: Monitored anesthesia care Complications: None Operative Indications: This is a 81-year-old F with progressive vision loss in the left eye due to 2+ nuclear sclerotic, 2+ cortical, and trace posterior subcapsular cataract. Best corrected visual acuity was 20/60 with glare to 20/125 vision in the left eye. Indications for surgery were: - Overall decrease in vision - Difficulty seeing words on a computer screen - Difficulty reading - Difficulty seeing words, closed captions, or game scores on TV - Difficulty seeing street signs - Difficulty driving in low light or at night - Difficulty driving at night because of headlights from other vehicles - Difficulty with glare or bright lights in any situation The patient was consented at length concerning the risks and benefits of cataract surgery after which the patient expressed a desire to proceed with surgery. Operative Procedure: The patient was taken into OR#3 and placed under monitored anesthesia care. A surgical time-out was conducted confirming correct patient, correct procedure, and correct surgical site. The patient was given topical anesthesia and then prepped and draped in the usual sterile fashion. The eye was entered at the 6 and 3 oclock positions. Intracameral Shugarcaine was injected into the anterior chamber followed by a dispersive viscoelastic. A continuous-tear curvilinear capsulorhexis was performed. The nucleus was hyd rodissected and phacoemulsified. The cortex was evacuated using automated infusion and aspiration. A cohesive viscoelastic was injected into the capsular bag and a 21.5 diopter intraocular lens was inserted into the bag. Infusion and aspiration were used to evacuate the viscoelastic materials from the eye. The wounds were hydrated and the eye inflated to physiologic pressure using balanced salt solution. Approximately 0.25ml of a mixture of triamcinolone and moxifloxacin was injected trans-sclerally into the vitreous in the inferotemporal quadrant using a 30 gauge cannula. An additional 0.55ml of a mixture of triamcinolone, moxifloxacin, and vancomycin was injected subconjunctivally in the superior quadrant for infection and inflammation prophylaxis. Wound integrity was checked with Weck-Promise sponges. The patient was taken from the operating room in good condition and given post-op instructions.
[2022-01-01 08:15] VITALS: BP 123/42
--- NOTE | 2022-01-01 08:57 | ANESTHESIA POST OP EVALUATION ---
Anesthesia Post Eval - Post Anesthesia Eval Vitals: Last Vital Signs Temp 36.6 C 01/01/22 08:13 Pulse 62 01/01/22 08:13 Resp 16 01/01/22 08:13 BP 123/42 L 01/01/22 08:13 Pulse Ox 94 01/01/22 08:13 CV Function Including HR & BP: Stable Pain Control: Satisfactory Nausea & Vomiting: Negative Mental Status: Baseline Respiratory Status: Airway Patent Hydration Status: Satisfactory Anesthesia Complications: None
== END 2022-01-01 06:10 | disposition home or self-care (01) ==
LOC: SDS 06:09
PROVIDERS: ATTEND Ophthalmology
DX: E11.36 Type 2 diabetes mellitus with diabetic cataract (principal); H25.812 Combined forms of age-related cataract, left eye; F41.9 Anxiety disorder, unspecified; Z87.891 Personal history of nicotine dependence
CPT/HCPCS: 66984; A9270; J3490; J7120

== ENCOUNTER 2022-02-03 10:46 | Outpatient (CLI) | payer MEDICARE | END 2022-02-03 10:47 | disposition EMS.NT | LOC: EMS 10:46 | DX: S99.922A Unspecified injury of left foot, initial encounter (principal); W01.0XXA Fall on same level from slipping, tripping and stumbling without subsequent striking against object, initial encounter; Y93.01 Activity, walking, marching and hiking; Y92.008 Other place in unspecified non-institutional (private) residence as the place of occurrence of the external cause ==

== ENCOUNTER 2022-02-03 11:59 | Emergency (ER) | payer MEDICARE ==
[2022-02-03 12:14] VITALS: BP 171/74
--- NOTE | 2022-02-03 13:25 | XRAY Report ---
PROCEDURE: Knee 3 View RT INDICATIONS: TRAUMA TECHNIQUE: 3 views of the right knee(s) were acquired. COMPARISON: None. FINDINGS: Bones: No fractures or dislocations. No suspicious bony lesions. Tricompartmental osteoarthritic c hanges are present. Soft tissues: No joint effusion. No suspicious soft tissue calcifications. IMPRESSION: No visualized acute fracture or dislocation. However, occult injury cannot be excluded. Recommend short interval imaging follow-up in 7-10 days as clinically indicated for additional evalua tion. Reviewed by: Myra Hernandez MD on 02/03/2022 1:23 PM PDT Approved by: Myra Hernandez MD on 02/03/2022 1:23 PM PDT Station ID: [id number]
--- NOTE | 2022-02-03 13:26 | XRAY Report ---
PROCEDURE: Foot 3 View LT INDICATIONS: Trauma TECHNIQUE: 3 views of the foot were acquired. COMPARISON: None FINDINGS: Bones: No fractures or dislocations. No suspicious bony lesions. Hallux valgus deformity is presen t. Moderate first MTP degenerative narrowing is present. Scattered IP narrowing is present. Soft tissues: No tibiotalar joint effusion. Achilles tendon appears normal. IMPRESSION: No visualized acute fracture or dislocation. However, occult injury cannot be excluded. Recommend david rt interval imaging follow-up in 7-10 days as clinically indicated for additional evaluation. Reviewed by: Myra Hernandez MD on 02/03/2022 1:24 PM PDT Approved by: Myra Hernandez MD on 02/03/2022 1:24 PM PDT Station ID: [id number]
--- NOTE | 2022-02-03 13:27 | XRAY Report ---
PROCEDURE: Ankle 3 View RT INDICATIONS: Trauma TECHNIQUE: 3 views of the ankle were acquired. COMPARISON: X-ray foot 02/03/2022 FINDINGS: Bones: No fractures or dislocations. Ankle mortise is normally aligned. No suspicious bony lesions . Soft tissues: No tibiotalar joint effusion. Achilles tendon appears normal. IMPRESSION: No visualized acute fracture or dislocation. However, occult injury cannot be excluded. Recommend short interval imaging follow-up in 7-10 days as clinically indicated for additional evalua tion. Reviewed by: Myra Hernandez MD on 02/03/2022 1:25 PM PDT Approved by: Myra Hernandez MD on 02/03/2022 1:25 PM PDT Station ID: [id number]
--- NOTE | 2022-02-03 14:11 | ED Physician Documentation ---
PD HPI LOWER EXT INJURY - Stated complaint Stated Complaint: FALL, RIGHT KNEE & LEFT FOOT INJURY - Chief complaint Chief Complaint: Trauma Ext - History obtained from History obtained from: Patient - Additional information Additional information: Patient comes emergency department for chief complaint of fall after stepping off her deck stair. Patient states she is been having some ongoing issues with right low back pain and sciatica and has some numbness of her right thigh. She was seen in urgent care for this yesterday and has an appoint with her primary care provider tomorrow morning to address this ongoing issue. She states that this morning around 1030, she was stepping down the 1 step from her deck and landed wrong and fell. She states that she hurt her left big toe, her right ankle, and her right knee. No other injuries. She did not hit her head or lose consciousness. She was ambulatory after the fall, but was limping. No other complaints at this time. Review of Systems Ten Systems: 10 systems reviewed and negative Constitutional: reports: Reviewed and negative Eyes: reports: Reviewed and negative Ears: reports: Reviewed and negative Nose: reports: Reviewed and negative Throat: reports: Reviewed and negative Cardiac: reports: Reviewed and negative Respiratory: reports: Reviewed and negative GI: reports: Reviewed and negative : reports: Reviewed and negative Skin: reports: Reviewed and negative Musculoskeletal: reports: Back pain, Extremity pain, Joint pain Neurologic: reports: Reviewed and negative Psychiatric: reports: Reviewed and negative Endocrine: reports: Reviewed and negative Immunocompromised: reports: Reviewed and negative PD PAST MEDICAL HISTORY - Past Medical History Cardiovascular: Hypertension, High cholesterol, Angina (unknown cause, negative heart cath), Arrhythmia Respiratory: None Neuro: None Endocrine/Autoimmune: Type 2 diabetes (diet controlled) GI: None 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: None, Ectopic : None HEENT: Chronic vision loss Psych: Anxiety Musculoskeletal: Other (issue with neck) Derm: Rosacea - Past Surgical History Past Surgical History: Yes General: Appendectomy Ortho: Carpal Tunnel surgery /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 INTERNSHIP: Oophrectomy, Other Cardiovascular: Cardiac catheterization - Present Medications Home Medications: Ambulatory Orders Medication Instructions Recorded Confirmed Aspirin Chewable [St Reyes 81 mg PO DAILY 08/26/13 12/31/21 Aspirin] Atorvastatin Calcium 20 mg PO DAILY 05/14/19 12/31/21 Lisinopril/Hydrochlorothiazide 1 each PO DAILY 05/14/19 12/31/21 [Lisinopril-Hctz 20-12.5 mg Tab] Nitroglycerin [Nitrostat] 0.4 mg SL ONCE 05/14/19 12/31/21 Alprazolam [Xanax] 0.25 mg PO DAILY PRN 12/31/21 12/31/21 - Allergies Allergies/Adverse Reactions: Allergies Allergy/AdvReac Type Severity Reaction Status Date / Time meperidine HCl * AdvReac Unknown Nausea Verified 02/03/22 12:12 [From Demerol] niacin AdvReac Unknown Hives Verified 02/03/22 12:12 - Social History Does the pt smoke?: No Smoking Status: Former smoker (quit 5 years ago) Does the pt drink ETOH?: No Does the pt have substance abuse?: No - Immunizations Immunizations are current?: Yes - POLST Patient has POLST: No PD ED PE NORMAL - Vitals Vital signs reviewed: Yes - General General: Alert and oriented X 3, No acute distress, Well developed/nourished - HEENT HEENT: Atraumatic, PERRL, EOMI, Moist mucous membranes - Neck Neck: Supple, no meningeal sign, No bony TTP - Cardiac Cardiac: Strong equal pulses - Respiratory Respiratory: No respiratory distress - Back Back: No spinal TTP - Derm Derm: Normal color, Warm and dry, Other (Small abrasion right knee) - Extremities Extremities: No deformity, Other (Mild edema, contusion, and tenderness palpation of left great toe. No deformity. Mild pain with range of motion of right ankle. Mild tenderness palpation over right knee and mild pain with range of motion. No deformity.Minimal edema.) - Neuro Neuro: Alert and oriented X 3 - Psych Psych: Normal mood, Normal affect Results - Vitals Vitals: Oxygen O2 Source Room air - Rads (name of study) R knee XR Radiology: Final report received, EMP read indepedently, See rad report (nad) R ankle XR Radiology: Final report received, EMP read indepedently, See rad report (nad) L foot XR Radiology: Final report received, EMP read indepedently, See rad report (nad) PD MEDICAL DECISION MAKING - ED course Complexity details: reviewed results, re-evaluated patient, considered differential, d/w patient ED course: Pt was worked up with XR's of R knee and ankle and L foot, with no acute findings. Pt was deemed stable for d/c home. We have discussed the usual indications for return. Departure - Departure Disposition: Home, Self Care Clinical Impression: Toe contusion Qualifiers: Encounter type: initial encounter Toe: great toe Damage to nail status: without damage Laterality: left Qualified Code(s): S90.112A - Contusion of left great toe without damage to nail, initial encounter Strain of knee and leg, right Qualifiers: Encounter type: initial encounter Qualified Code(s): S86.911A - Strain of unspecified muscle(s) and tendon(s) at lower leg level, right leg, initial encounter Condition: Stable Instructions: ED Sprain Toe Comments: Your x-rays look good. You have not broken any bones and most likely, have bruised and sprained the various joints and digits. He may take ibuprofen and Tylenol if needed. You may also use ice packs as needed. Overall, the injury should be expected to get better on their own. Discharge Date/Time: 02/03/22 14:26
== END 2022-02-03 14:26 | disposition home or self-care (01) ==
LOC: ED 11:59
DX: S90.112A Contusion of left great toe without damage to nail, initial encounter (principal); S86.911A Strain of unspecified muscle(s) and tendon(s) at lower leg level, right leg, initial encounter; W10.9XXA Fall (on) (from) unspecified stairs and steps, initial encounter; Y92.007 Garden or yard of unspecified non-institutional (private) residence as the place of occurrence of the external cause; I10 Essential (primary) hypertension; E11.9 Type 2 diabetes mellitus without complications; Z87.891 Personal history of nicotine dependence
CPT/HCPCS: 99282; 99283

== ENCOUNTER 2022-02-04 11:08 | Outpatient (CLI) | payer MEDICARE ==
--- NOTE | 2022-02-04 16:49 | XRAY Report ---
PROCEDURE: Hip w/Pelvis 2-3V RT INDICATIONS: PAIN IN RIGHT HIP JOINT, LUMBAGO R SIATICA TECHNIQUE: AP pelvis with lateral view(s) of the right hip(s). COMPARISON: None. FINDINGS: Bones: No fractures or dislocations. Pelvic ring appears intact. No suspicious bony lesions. Mild bilateral hip osseous hypertrophy compatible with osteoarthritis. Soft tissues: The visualized bowel gas pattern is normal. No suspicious soft tissue calcifications. IMPRESSION: Mild bilateral hip osteoarthritis. No fracture. No acute osseous lesion. If symptoms and/or clinical concern for pathology persists, further assessme nt with repeat plain film radiographs (7-10 days) or advanced imaging (CT, MR, bone scan) should be c onsidered. Reviewed by: Winnie Adams MD, PhD on 02/04/2022 4:47 PM PDT Approved by: Winnie Adams MD, PhD on 02/04/2022 4:47 PM PDT Station ID: [id number]
--- NOTE | 2022-02-04 16:50 | XRAY Report ---
PROCEDURE: Lumbar Spine 2 View INDICATIONS: LUMBAGO WITH SCIATICA, RIGHT SIDE TECHNIQUE: 3 views of the lumbar spine were acquired. COMPARISON: None. FINDINGS: Bones: 5 [id number] vertebrae are present. There is trace L1-L2, L2-L3 and L3 on L4 retrolisthe sis. There is trace L4-L5 anterolisthesis. There is approximately No vertebral body compression fract ures. No suspicious bony lesions. Moderate degenerative disc changes noted throughout the lumbar spi ne. Moderate facet hypertrophy noted throughout the lumbar spine. Soft tissues: Overlying bowel gas pattern is normal. No suspicious soft tissue calcifications. IMPRESSION: 1. Multilevel degenerative disc disease. 2. Multilevel facet arthropathy. 3. No fracture. No acute osseous lesion. If there is continued clinical concern for pathology, then M RI should be considered for further evaluation. Reviewed by: Winnie Adams MD, PhD on 02/04/2022 4:48 PM PDT Approved by: Winnie Adams MD, PhD on 02/04/2022 4:48 PM PDT Station ID: [id number]
== END 2022-02-04 11:09 | disposition home or self-care (01) ==
LOC: DI.S 11:08
PROVIDERS: ATTEND Nurse Practitioner Family
DX: M16.0 Bilateral primary osteoarthritis of hip (principal); M51.36 Other intervertebral disc degeneration, lumbar region; M47.816 Spondylosis without myelopathy or radiculopathy, lumbar region

== ENCOUNTER 2022-02-13 22:17 | Outpatient (CLI) | payer MEDICARE | END 2022-02-13 22:18 | disposition critical access hospital (66) | LOC: EMS 22:17 | DX: R03.0 Elevated blood-pressure reading, without diagnosis of hypertension (principal); R00.0 Tachycardia, unspecified | CPT/HCPCS: A0425; A0429 ==

== ENCOUNTER 2022-02-13 22:54 | Emergency (ER) | payer MEDICARE ==
--- NOTE | 2022-02-13 22:55 | ED Physician Documentation ---
History of Present Illness - Stated complaint Stated Complaint: GLF, HIGH BLOOD PRESSURE - History obtained from History obtained from: Patient, EMS - History of Present Illness Timing: Prior to arrival Pain level now: 3 Improved by: nothing Worsened by: no exacerbating factors - Additonal information Additional information: BIBA. patient sustained a ground-level fall tonight when her right knee gave out. Patient says this has been an ongoing problem for her and that she is seeing an orthopedic surgeon for the problem. She denies loss of consciousness, although she says she did hit the back of her head on the floor and she complains of a posterior occipital headache. She also describes some visual changes although it is not clear after her description whether this is a new visual change or not Review of Systems Eyes: reports: Other (episodic double vision) Ears: reports: Reviewed and negative Cardiac: reports: Reviewed and negative Respiratory: reports: Reviewed and negative GI: reports: Reviewed and negative Musculoskeletal: reports: Joint pain (right knee). denies: Neck pain, Back pain Neurologic: reports: Headache, Head injury. 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, Ectopic : None HEENT: Chronic vision loss Psych: Anxiety Musculoskeletal: Other (issue with neck) Derm: Rosacea - Past Surgical History Past Surgical History: Yes General: Appendectomy Ortho: Carpal Tunnel surgery /EXTRUSION UTILITY WORKER: Oophrectomy, Other Cardiovascular: Cardiac catheterization - Present Medications Home Medications: Ambulatory Orders Medication Instructions Recorded Confirmed Aspirin Chewable [St Reyes 81 mg PO DAILY 08/26/13 12/31/21 Aspirin] Atorvastatin Calcium 20 mg PO DAILY 05/14/19 12/31/21 Lisinopril/Hydrochlorothiazide 1 each PO DAILY 05/14/19 12/31/21 [Lisinopril-Hctz 20-12.5 mg Tab] Nitroglycerin [Nitrostat] 0.4 mg SL ONCE 05/14/19 12/31/21 Alprazolam [Xanax] 0.25 mg PO DAILY PRN 12/31/21 12/31/21 - Allergies Allergies/Adverse Reactions: Allergies Allergy/AdvReac Type Severity Reaction Status Date / Time meperidine HCl * AdvReac Unknown Nausea Verified 02/03/22 12:12 [From Demerol] niacin AdvReac Unknown Hives Verified 02/03/22 12:12 prednisone AdvReac Hives Verified 02/13/22 23:05 - Social History Does the pt smoke?: No Smoking Status: Never smoker Does the pt drink ETOH?: No Does the pt have substance abuse?: No - Immunizations Immunizations are current?: Yes - POLST Patient has POLST: No PD ED PE NORMAL - Vitals Vital signs reviewed: Yes - General General: Alert and oriented X 3, No acute distress, Well developed/nourished - HEENT HEENT: PERRL, EOMI, Moist mucous membranes - Neck Neck: No bony TTP - Cardiac Cardiac: RRR - Respiratory Respiratory: No respiratory distress, Clear bilaterally - Abdomen Abdomen: Soft, Non tender - Extremities Extremities: No deformity, Other (TTP right knee lateral aspect and direct patellar tenderness) - Neuro Neuro: Alert and oriented X 3, No motor deficit, No sensory deficit, Normal speech Eye Opening: Spontaneous Motor: Obeys Commands Verbal: Oriented GCS Score: 15 Results - Vitals Vitals: Oxygen O2 Source Room air - Labs Labs: Laboratory Tests 02/13/22 23:12 Urine Color YELLOW Urine Clarity CLEAR Urine pH 6.0 Ur Specific [place] <=1.005 Urine Protein NEGATIVE Urine Glucose (UA) NEGATIVE Urine Ketones NEGATIVE Urine Occult Blood NEGATIVE Urine Nitrite NEGATIVE Urine Bilirubin NEGATIVE Urine Urobilinogen 0.2 (NORMAL) Ur Leukocyte Esterase NEGATIVE Urine RBC 0-5 Urine WBC 0-3 Ur Squamous Epith Cells RARE Squamous Urine Bacteria None Seen - Rads (name of study) CT head Radiology: Prelim report reviewed, See rad report xrays right knee Radiology: Prelim report reviewed, See rad report PD MEDICAL DECISION MAKING - ED course Complexity details: reviewed results, re-evaluated patient, considered differential, d/w patient, d/w family Departure - Departure Disposition: 01 Home, Self Care Clinical Impression: Right knee buckling Head injury Qualifiers: Encounter type: initial encounter Qualified Code(s): S09.90XA - Unspecified injury of head, initial encounter Right knee sprain Qualifiers: Encounter type: initial encounter Involved ligament of knee: unspecified ligament Qualified Code(s): S83.91XA - Sprain of unspecified site of right knee, initial encounter Condition: Good Instructions: ED Head Injury Closed, ED Sprain Knee Follow-Up: Margo Metcalf ARNP [Primary Care Provider] - Comments: There are no acute/concerning findings on the CT of your head nor the xrays of your right knee. As noted on previous xrays, there are osteoarthritic changes of the knee , and findings on the CT head that are a result of aging. Follow up with your primary care provider next week for reevaluation if you are still having any symptoms from tonight's incident (such as ongoing headache or right knee pain) Discharge Date/Time: 02/14/22 02:57
[2022-02-13 23:23] LABS: BILIRUBIN,URINE NEGATIVE (NEGATIVE); GLUCOSE, URINE (UA) NEGATIVE (NEGATIVE); KETONES,URINE (UA) NEGATIVE (NEGATIVE); LEUKOCYTE ESTERASE, URINE NEGATIVE (NEGATIVE); NITRITE,URINE NEGATIVE (NEGATIVE); OCCULT BLOOD,URINE NEGATIVE (NEGATIVE); PROTEIN,URINE NEGATIVE (NEGATIVE); UROBILINOGEN,URINE 0.2 (NORMAL) E.U./dL (NORMAL)
[2022-02-13 23:30] LABS: BACTERIA,URINE None Seen /HPF (None Seen); CLARITY,URINE CLEAR (CLEAR); RBC,URINE 0-5 /HPF (0-5); SQUAMOUS EPITHELIAL CELL,UR RARE Squamous (<= Few); WBC,URINE 0-3 /HPF (0-5)
--- NOTE | 2022-02-14 00:55 | CT Report ---
PROCEDURE: HEAD WO INDICATIONS: fall, head injury, visual changes, nausea ,STEWART TECHNIQUE: Noncontrast 5 mm thick angled axial sections acquired from the foramen magnum to the vertex. For rad iation dose reduction, the following was used: automated exposure control, adjustment of mA and/or k V according to patient size. COMPARISON: CT head 07/04/2018. FINDINGS: Image quality: Diagnostic. CSF spaces: There is mild cerebral volume loss with prominence of the ventricles and sulci. Basal ci sterns are patent. No extra-axial fluid collections. Brain: No intracranial hemorrhage, mass, or mass effect. Schaefer-white matter interface is preserved. T here are patchy subcortical and periventricular white matter hypodensities consistent with moderate c hronic small vessel ischemic changes. Skull and face: Calvarium and visualized facial bones are intact, without suspicious lesions. Sinuses: Visualized sinuses and mastoids are clear. IMPRESSION: 1. No acute intracranial abnormality. 2. Moderate chronic white matter small vessel ischemic changes and mild cerebral volume loss. Reviewed by: Oscar Hamilton MD on 02/14/2022 12:54 AM PDT Approved by: Oscar Hamilton MD on 02/14/2022 12:54 AM PDT Station ID: [id number]
--- NOTE | 2022-02-14 01:58 | XRAY Report ---
PROCEDURE: Knee 3 View RT INDICATIONS: fall, right knee injury/pain/tenderness TECHNIQUE: 3 views of the right knee were acquired. COMPARISON: None. FINDINGS: Bones: No fractures or dislocations. No suspicious bony lesions. Soft tissues: No joint effusion. No suspicious soft tissue calcifications. IMPRESSION: 1. No fracture or dislocation. Reviewed by: Oscar Hamilton MD on 02/14/2022 1:56 AM PDT Approved by: Oscar Hamilton MD on 02/14/2022 1:56 AM PDT Station ID: [id number]
[2022-02-14 02:27] VITALS: BP 149/97
== END 2022-02-14 02:57 | disposition home or self-care (01) ==
LOC: EDUNIT# → ED 22:54
DX: S09.90XA Unspecified injury of head, initial encounter (principal); S83.91XA Sprain of unspecified site of right knee, initial encounter; W18.39XA Other fall on same level, initial encounter; I10 Essential (primary) hypertension; E11.9 Type 2 diabetes mellitus without complications
CPT/HCPCS: 81001; 99282; 99284

== ENCOUNTER 2022-03-18 14:10 | Outpatient (CLI) | payer MEDICARE ==
--- NOTE | 2022-03-18 17:15 | DEXA Report ---
PROCEDURE: Dexa Spine and/or Hip INDICATIONS: DISORDER OF BONE TECHNIQUE: Dual energy x-ray absorptiometry (DXA) was performed on a [employer] System. Regions measur ed are the AP Spine, femoral neck, and if needed forearm. COMPARISON: None. FINDINGS: Lumbar Spine: Bone Mineral Density 1.535 g/cm/cm,T score 2.8, normal Left Hip: Bone Mineral Density 0.958 g/cm/cm,T score -0.4, normal Left Femoral Neck: Bone Mineral Density 0.900 g/cm/cm, T score -1.0, normal (T score greater or equal to -1.0: NORMAL) (T score from -1.1 to -2.4: OSTEOPENIA) (T score less than or equal to -2.5 to: OSTEOPOROSIS) Impression: Normal bone marrow density. Patients with diagnosis of osteoporosis or osteopenia should have regular bone mineral density assess ment. For those eligible for Medicare, routine testing is allowed once every 2 years. Testing frequ ency can be increased for patients who have rapidly progressing disease or for those who are receivin g medical therapy to restore bone mass. Reviewed by: Winnie Adams MD, PhD on 03/18/2022 5:14 PM PDT Approved by: Winnie Adams MD, PhD on 03/18/2022 5:14 PM PDT Station ID: [id number]
== END 2022-03-18 14:11 | disposition home or self-care (01) ==
LOC: DI 14:10
PROVIDERS: ATTEND Nurse Practitioner Family
DX: M89.9 Disorder of bone, unspecified (principal)

== ENCOUNTER 2022-05-28 16:31 | Emergency (ER) | payer MEDICARE ==
[2022-05-28 16:45] VITALS: BP 168/54
[2022-05-28 17:09] LABS: BASOPHILS # (AUTO) 0.1 10^3/uL (0.0-0.1); BASOPHILS % (AUTO) 0.8 %; EOSINOPHILS # (AUTO) 0.1 10^3/uL (0.0-0.7); EOSINOPHILS % (AUTO) 1.5 %; HCT - HEMATOCRIT 43.2 % (37.0-47.0); HGB - HEMOGLOBIN 14.2 g/dL (12.0-16.0); LYMPHOCYTES # (AUTO) 1.7 10^3/uL (1.5-3.5); LYMPHOCYTES % (AUTO) 19.7 %; MEAN CORPUSCULAR HEMOGLOBIN 29.3 pg (27.0-31.0); MEAN CORPUSCULAR HGB CONC 32.9 g/dL (32.0-36.0); MEAN CORPUSCULAR VOLUME 89.3 fL (81.0-99.0); MONOCYTES # (AUTO) 0.5 10^3/uL (0.0-1.0); MONOCYTES % (AUTO) 6.2 %; NEUTROPHILS # (AUTO) 6.3 10^3/uL (1.5-6.6); NEUTROPHILS % (AUTO) 71.5 %; PLT - PLATELET COUNT 217 10^3/uL (130-450); RED BLOOD COUNT 4.84 10^6/uL (4.20-5.40); WHITE BLOOD COUNT 8.8 x10^3/uL (4.8-10.8)
[2022-05-28 17:21] LABS: ALBUMIN 4.4 g/dL (3.2-5.5); ALBUMIN/GLOBULIN RATIO 1.4 (1.0-2.2); BILIRUBIN,TOTAL 0.5 mg/dL (0.2-1.0); CREATININE 0.7 mg/dL (0.4-1.0); POTASSIUM 3.8 mmol/L (3.5-5.0); TOTAL PROTEIN 7.5 g/dL (6.7-8.2)
--- NOTE | 2022-05-28 17:56 | XRAY Report ---
PROCEDURE: Chest 1 View X-Ray INDICATIONS: Chest pain TECHNIQUE: One view of the chest was acquired. COMPARISON: Chest radiograph 05/25/2021 FINDINGS: Surgical changes and devices: None. Lungs and pleura: No pleural effusions or pneumothorax. Lungs are clear. Mediastinum: Mediastinal contours appear normal. Heart size is normal. Bones and chest wall: No suspicious bony lesions. Overlying soft tissues appear unremarkable. IMPRESSION: No acute cardiopulmonary abnormality. Reviewed by: Hussain Hoyt MD on 05/28/2022 5:54 PM PDT Approved by: Hussain Hoyt MD on 05/28/2022 5:54 PM PDT Station ID: [id number]
--- NOTE | 2022-05-28 17:58 | ED Physician Documentation ---
PD HPI CHEST PAIN - Stated complaint Stated Complaint: HEART RACING - Chief complaint Chief Complaint: Cardiac - History obtained from History obtained from: Patient - Additional information Additional information: 81-year-old woman with no history of coronary disease. 5 years ago she had an episode of chest pain which was worked up and originally diagnosed as angina subsequently had a positive stress test, but follow-up angiography was negative. She was in her usual state of health today In the parking lot of [facility] and she felt profoundly fatigued with heart racing and chest pressure and like she could feel her pulse everywhere. This is mostly better now but still feels fatigued and short of breath. She has noted a day worth of right leg pain she related this to an injury she had a few months ago but has been worse since yesterday. Review of Systems Ten Systems: 10 systems reviewed and negative Cardiac: reports: Chest pain / pressure, Palpitations Respiratory: reports: Dyspnea. 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, Ectopic : None HEENT: Chronic vision loss Psych: Anxiety Musculoskeletal: Other (issue with neck) Derm: Rosacea - Past Surgical History Past Surgical History: Yes General: Appendectomy Ortho: Carpal Tunnel surgery /FERMENTOLOGIST: Oophrectomy, Other Cardiovascular: Cardiac catheterization - Present Medications Home Medications: Ambulatory Orders Medication Instructions Recorded Confirmed Aspirin Chewable [St Reyes 81 mg PO DAILY 08/26/13 12/31/21 Aspirin] Atorvastatin Calcium 20 mg PO DAILY 05/14/19 12/31/21 Lisinopril/Hydrochlorothiazide 1 each PO DAILY 05/14/19 12/31/21 [Lisinopril-Hctz 20-12.5 mg Tab] Nitroglycerin [Nitrostat] 0.4 mg SL ONCE 05/14/19 12/31/21 Alprazolam [Xanax] 0.25 mg PO DAILY PRN 12/31/21 12/31/21 - Allergies Allergies/Adverse Reactions: Allergies Allergy/AdvReac Type Severity Reaction Status Date / Time meperidine HCl * AdvReac Unknown Nausea Verified 05/28/22 16:45 [From Demerol] niacin AdvReac Unknown Hives Verified 05/28/22 16:45 prednisone AdvReac Hives Verified 05/28/22 16:45 - Social History Does the pt smoke?: No Smoking Status: Never smoker Does the pt drink ETOH?: No Does the pt have substance abuse?: No - Immunizations Immunizations are current?: Yes - POLST Patient has POLST: No PD ED PE NORMAL - Vitals Vital signs reviewed: Yes - General General: Alert and oriented X 3, No acute distress - HEENT HEENT: PERRL, EOMI - Neck Neck: Supple, no meningeal sign, No bony TTP - Cardiac Cardiac: RRR, No murmur - Respiratory Respiratory: No respiratory distress, Clear bilaterally - Abdomen Abdomen: Non tender - Back Back: No CVA TTP, No spinal TTP - Derm Derm: Normal color, Warm and dry - Extremities Extremities: No edema, No calf tenderness / cord - Neuro Neuro: Alert and oriented X 3, Normal speech Results - Vitals Vitals: Vital Signs - 24 hr 05/28/22 16:42 Temperature 36.4 C L Heart Rate 71 Respiratory 16 Rate Blood Pressure 168/54 H O2 Saturation 98 Oxygen O2 Source Room air - EKG (time done) 1646 Rate: Rate (enter#) (73) Rhythm: NSR [place]: Normal Intervals: Normal NE QRS: Normal Ischemia: Normal ST segments - Labs Labs: Laboratory Tests 05/28/22 05/28/22 05/28/22 17:03 17:03 17:03 WBC 8.8 RBC 4.84 Hgb 14.2 Hct 43.2 MCV 89.3 MCH 29.3 MCHC 32.9 RDW 13.0 Plt Count 217 MPV 10.0 Neut # (Auto) 6.3 Lymph # (Auto) 1.7 Lake # (Auto) 0.5 Eos # (Auto) 0.1 Baso # (Auto) 0.1 Absolute Nucleated RBC 0.00 Nucleated RBC % 0.0 D-Dimer Sodium 138 Potassium 3.8 Chloride 100 L Carbon Dioxide 31 Anion Gap 7.0 BUN 24 H Creatinine 0.7 Estimated GFR (MDRD) 81 L Glucose 119 H Calcium 10.0 Total Bilirubin 0.5 AST 22 ALT 32 Alkaline Phosphatase 71 Troponin I High Sens 3.6 Total Protein 7.5 Albumin 4.4 Globulin 3.1 Albumin/Globulin Ratio 1.4 Lipase 31 05/28/22 05/28/22 17:03 18:16 WBC RBC Hgb Hct MCV MCH MCHC RDW Plt Count MPV Neut # (Auto) Lymph # (Auto) Lake # (Auto) Eos # (Auto) Baso # (Auto) Absolute Nucleated RBC Nucleated RBC % D-Dimer 201.2 Sodium Potassium Chloride Carbon Dioxide Anion Gap BUN Creatinine Estimated GFR (MDRD) Glucose Calcium Total Bilirubin AST ALT Alkaline Phosphatase Troponin I High Sens 5.5 Total Protein Albumin Globulin Albumin/Globulin Ratio Lipase - Rads (name of study) Single view chest x-ray is unremarkable Radiology: EMP read contemporaneously PD MEDICAL DECISION MAKING - ED course ED course: 81-year-old woman presents with atypical chest pain with negative heart cath a few years ago. D-dimer and serial troponins in the department negative with nonischemic EKG. She was eager to go home. Departure - Departure Disposition: Home, Self Care Clinical Impression: Chest pain Condition: Good Record reviewed to determine appropriate education?: Yes Instructions: ED Chest Pain Atypical Unkn Cause Comments: No evidence of active heart issue today, given that its been 5 years since her last stress test, not unreasonable to follow-up with Dr. Zaldivar for reevaluation. Return if worse. Call his office tomorrow Wednesday for an appointment.
== END 2022-05-28 18:57 | disposition home or self-care (01) ==
LOC: ED 16:31
DX: R07.9 Chest pain, unspecified (principal); I10 Essential (primary) hypertension; E11.9 Type 2 diabetes mellitus without complications
CPT/HCPCS: 36415; 80053; 83690; 84484; 85025; 85379; 93005; 99284

== ENCOUNTER 2022-05-31 22:54 | Outpatient (CLI) | payer MEDICARE | END 2022-05-31 22:55 | disposition EMS.NT | LOC: EMS 22:54 | DX: R11.0 Nausea (principal); K30 Functional dyspepsia ==

== ENCOUNTER 2022-06-30 20:35 | Outpatient (CLI) | payer MEDICARE | END 2022-06-30 20:36 | disposition EMS.NT | LOC: EMS 20:35 | DX: R42 Dizziness and giddiness (principal); R00.0 Tachycardia, unspecified ==

== ENCOUNTER 2022-07-10 12:27 | Outpatient (CLI) | payer MEDICARE ==
--- NOTE | 2022-07-10 14:57 | Ultrasound Report ---
PROCEDURE: Ankle Brachial Index INDICATIONS: ATHEROSCLEROSIS OF ARTERIES TECHNIQUE: Ankle-brachial indices were obtained bilaterally and recorded. COMPARISONS: None. FINDINGS: Right ankle brachial index (TABBY): 1.0 Left ankle brachial index (TABBY): 0.9 IMPRESSION: Resting ABIs as described. Reviewed by: Brenda Perez MD on 07/10/2022 2:55 PM PDT Approved by: Brenda Perez MD on 07/10/2022 2:55 PM PDT Station ID: [id number]
--- NOTE | 2022-07-10 15:44 | Ultrasound Report ---
PROCEDURE: Duplex Lwr Ext Arterial Bilat INDICATIONS: ATHEROSCLEROSIS OF ARTERIES TECHNIQUE: Color and pulse Doppler interrogation was performed of both lower extremity arterial systems, with im age documentation. COMPARISON: None FINDINGS: Right lower extremity: Common femoral artery: 142.8 cm/sec, with triphasic flow. Deep femoral artery: 128.0 cm/sec, with triphasic flow. Proximal superficial femoral artery: 113.7 cm/sec, with triphasic flow. Mid superficial femoral artery: 88.0 cm/sec, with triphasic flow. Distal superficial femoral artery: 228.5 cm/sec, with triphasic, turbulent flow. Popliteal artery: 91.4 cm/sec, with triphasic flow. Posterior tibial artery: 16.6 cm/sec, with triphasic flow. Anterior tibial artery/dorsalis pedis: 70.3/58 cm/sec, with triphasic, triphasic flow. Schaefer-scale imaging description: Distal right SFA stenosis of between 50-75%. Moderate calcified plaq ue. Left lower extremity: Common femoral artery: 294.7 cm/sec, with triphasic, turbulent flow. Deep femoral artery: 190.0 cm/sec, with triphasic flow. Proximal superficial femoral artery: 135.1 cm/sec, with triphasic flow. Mid superficial femoral artery: 127.4 cm/sec, with triphasic flow. Distal superficial femoral artery: 114.2 cm/sec, with triphasic flow. Popliteal artery: 99.4 cm/sec, with triphasic flow. Posterior tibial artery: 63.3 cm/sec, with triphasic flow. Anterior tibial artery/dorsalis pedis: 56.3/26.6 cm/sec, with triphasic, triphasic flow. Schaefer-scale imaging description: Calcified common femoral artery stenosis of between 50-75%. Moderate calcified plaque. IMPRESSION: 1. No evidence of inflow stenotic disease. 2. On the right, there is a hemodynamically significant distal SFA stenosis. There is at least two-ve ssel runoff. Excellent 3. On the left, there is a hemodynamically significant common femoral artery stenosis. There is at le ast two-vessel runoff. Reviewed by: Fabio Chambers MD on 07/10/2022 3:43 PM PDT Approved by: Fabio Chambers MD on 07/10/2022 3:43 PM PDT Station ID: [id number]
== END 2022-07-10 12:28 | disposition home or self-care (01) ==
LOC: DI 12:27
PROVIDERS: ATTEND Nurse Practitioner Family
DX: I70.203 Unspecified atherosclerosis of native arteries of extremities, bilateral legs (principal)
CPT/HCPCS: 93922; 93925

== ENCOUNTER 2022-12-26 16:07 | Outpatient (CLI) | payer MEDICARE | END 2022-12-26 23:59 | disposition short-term general hospital (02) | LOC: EMS 16:07 | DX: R07.89 Other chest pain (principal); R06.02 Shortness of breath; I10 Essential (primary) hypertension | CPT/HCPCS: A0425; A0427 ==

== ENCOUNTER 2022-12-26 16:07 | Outpatient (CLI) | payer MEDICARE | END 2022-12-26 23:59 | disposition home or self-care (01) | LOC: DI 16:07 | DX: Z53.9 Procedure and treatment not carried out, unspecified reason (principal) ==

== ENCOUNTER 2023-01-14 07:00 | Outpatient (CLI) | payer MEDICARE ==
--- NOTE | 2023-01-14 15:45 | XRAY Report ---
PROCEDURE: Chest 2 View X-Ray INDICATIONS: PRODUCTIVE COUGH TECHNIQUE: 2 views of the chest were acquired. COMPARISON: 05/28/2022 FINDINGS: Surgical changes and devices: None. Lungs and pleura: No pleural effusions or pneumothorax. Lungs are clear. Mediastinum: Mediastinal contours appear normal. Heart size is normal. Bones and chest wall: No suspicious bony lesions. Overlying soft tissues appear unremarkable. IMPRESSION: No acute cardiopulmonary process. Reviewed by: Brenda Perez MD on 01/14/2023 3:43 PM PDT Approved by: Brenda Perez MD on 01/14/2023 3:43 PM PDT Station ID: [id number]
== END 2023-01-14 23:59 | disposition home or self-care (01) ==
LOC: DI.S 07:00
PROVIDERS: ATTEND Physician Assistant Medical
DX: R05.9 Cough, unspecified (principal); R09.89 Other specified symptoms and signs involving the circulatory and respiratory systems

== ENCOUNTER 2023-01-22 12:30 | Outpatient (CLI) | payer MEDICARE ==
--- NOTE | 2023-01-25 12:55 | Mammography Report ---
BILATERAL DIGITAL DIAGNOSTIC MAMMOGRAM 3D/2D WITH AXILLARY TAIL: 01/22/2023 CLINICAL: Diffuse left breast pain. Due for bilateral imaging. Comparison is made to exams dated: 09/21/2021 mammogram, 09/20/2020 mammogram, and 08/28/2019 mammogra m - [facility]. Both breasts are heterogeneously dense, which may obscure small masses (category c / 51-75% glandular tissue). No significant masses, calcifications, or other findings are seen in either breast. IMPRESSION: NEGATIVE There is no abnormality seen in the left breast or in the left axilla to correspond with the diffuse pain, however, clinical followup is recommended. There is no mammographic evidence of malignancy. A 1 year screening mammogram is recommended. Based on the Tyrer Cuzick model (a risk assessment model) the patients lifetime risk is 4.1% and her 10 year risk is 0.0%. According to the ACR, ACS, and NCCN guidelines, an annual breast MRI exam micha g with mammogram is recommended if the patients lifetime risk is 20% or greater. This exam was interpreted at Station ID: [id number]. NOTE: For mammograms, a report in lay terms will be sent to the patient. Approximately 15% of breast malignancies will not be visualized mammographically. In the management of a palpable breast mass, a negative mammogram must not discourage biopsy of a clinically suspicious lesion. Electronically Signed By: Hussain Trorez M.D. ar/:01/22/2023 13:12:51 letter sent: No_Letter ACR BI-RADS Category 1: Negative 3341F PARENCHYMAL PATTERN: (D) - The breast(s) demonstrate(s) heterogeneously dense fibroglandular jose de jesus vega. BI-RADS CATEGORY: (1) - 1 Mammogram [id number] 1 year screening LATERALITY: (B)
== END 2023-01-22 12:31 | disposition home or self-care (01) ==
LOC: DI 12:30
PROVIDERS: ATTEND Nurse Practitioner Family
DX: N64.4 Mastodynia (principal)

== ENCOUNTER 2023-03-01 23:47 | Outpatient (CLI) | payer MEDICARE | END 2023-03-01 23:59 | disposition EMS.NT | LOC: EMS 23:47 | DX: R07.9 Chest pain, unspecified (principal); R00.0 Tachycardia, unspecified; I10 Essential (primary) hypertension; F41.9 Anxiety disorder, unspecified ==

== ENCOUNTER 2023-03-02 00:38 | Outpatient (CLI) | payer MEDICARE | END 2023-03-02 23:59 | disposition critical access hospital (66) | LOC: EMS 00:38 | DX: R07.9 Chest pain, unspecified (principal); R00.0 Tachycardia, unspecified; F41.9 Anxiety disorder, unspecified | CPT/HCPCS: A0425; A0429 ==

== ENCOUNTER 2023-03-02 01:16 | Emergency (ER) | payer MEDICARE ==
[2023-03-02 01:41] LABS: BASOPHILS # (AUTO) 0.1 10^3/uL (0.0-0.1); BASOPHILS % (AUTO) 1.1 %; EOSINOPHILS # (AUTO) 0.2 10^3/uL (0.0-0.7); EOSINOPHILS % (AUTO) 2.9 %; HCT - HEMATOCRIT 38.2 % (37.0-47.0); HGB - HEMOGLOBIN 12.6 g/dL (12.0-16.0); LYMPHOCYTES # (AUTO) 1.4 10^3/uL (1.5-3.5); LYMPHOCYTES % (AUTO) 19.5 %; MEAN CORPUSCULAR HEMOGLOBIN 29.2 pg (27.0-31.0); MEAN CORPUSCULAR VOLUME 88.6 fL (81.0-99.0); MONOCYTES # (AUTO) 0.5 10^3/uL (0.0-1.0); MONOCYTES % (AUTO) 7.6 %; NEUTROPHILS # (AUTO) 4.9 10^3/uL (1.5-6.6); NEUTROPHILS % (AUTO) 68.5 %; PLT - PLATELET COUNT 213 10^3/uL (130-450); RED BLOOD COUNT 4.31 10^6/uL (4.20-5.40); RED CELL DISTRIBUTION WIDTH 12.5 % (12.0-15.0); WHITE BLOOD COUNT 7.1 x10^3/uL (4.8-10.8)
--- NOTE | 2023-03-02 01:51 | ED Physician Documentation ---
PD HPI CHEST PAIN - Stated complaint Stated Complaint: CHEST PX - Chief complaint Chief Complaint: Cardiac - History obtained from History obtained from: Patient - Additional information Additional information: BIBA. HPI from patient. C/o sudden onset rapid palpitations while at home at rest but awake. She then measured her BP, results of 200 SBP, then 189; pulse was 115. She took a dose of PRN metoprolol which she says she was told she could take in this situation. By the time EMS arrived, she was feeling asymptomatic. EMS left but , 15 minutes later, symptoms recurred, with pulse 120s and SBP 200s. She has been having these episodes, along with left chest pain that radiates to the right upper extremity, x four days. No inciting, ameliorating, nor exacerbating factors. She says she has had similar episodes in the past and underwent testing including cardiac cath a few years ago; she says one physician was planning on inserting a stent while another overruled them, saying she did not need a stent (and thus she has no stents). Review of Systems Constitutional: reports: Reviewed and negative Cardiac: reports: Chest pain / pressure, Palpitations. 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, Ectopic : None HEENT: Chronic vision loss Psych: Anxiety Musculoskeletal: Other (issue with neck) Derm: Rosacea - Past Surgical History Past Surgical History: Yes General: Appendectomy Ortho: Carpal Tunnel surgery /MESSAGE BROKER DEVELOPER: Oophrectomy, Other Cardiovascular: Cardiac catheterization - Present Medications Home Medications: Ambulatory Orders Medication Instructions Recorded Confirmed Aspirin Chewable [[place] 81 mg PO DAILY 08/26/13 12/31/21 Aspirin] Atorvastatin Calcium 20 mg PO DAILY 05/14/19 12/31/21 Lisinopril/Hydrochlorothiazide 1 each PO DAILY 05/14/19 12/31/21 [Lisinopril-Hctz 20-12.5 mg Tab] Nitroglycerin [Nitrostat] 0.4 mg SL ONCE 05/14/19 12/31/21 Alprazolam [Xanax] 0.25 mg PO DAILY PRN 12/31/21 12/31/21 - Allergies Allergies/Adverse Reactions: Allergies Allergy/AdvReac Type Severity Reaction Status Date / Time meperidine HCl * AdvReac Unknown Nausea Verified 03/02/23 01:24 [From Demerol] niacin AdvReac Unknown Hives Verified 03/02/23 01:24 prednisone AdvReac Hives Verified 03/02/23 01:24 - Social History Does the pt smoke?: No Smoking Status: Never smoker Does the pt drink ETOH?: No Does the pt have substance abuse?: No - Immunizations Immunizations are current?: Yes - POLST Patient has POLST: No PD ED PE NORMAL - Vitals Vital signs reviewed: Yes - General General: Alert and oriented X 3, No acute distress, Well developed/nourished - HEENT HEENT: PERRL, EOMI, Moist mucous membranes - Neck Neck: Supple, no meningeal sign - Cardiac Cardiac: RRR - Respiratory Respiratory: No respiratory distress, Clear bilaterally PD ED PE EXPANDED - Cardiac Cardiac: Murmur Present Results - Vitals Vitals: Oxygen O2 Source Room air - EKG (time done) No standard instances EKG releavant findings:: EKG personally interpreted by author of this note. Relevant findings are: Rate: Rate (enter#) (64) Rhythm: NSR [place]: Normal Intervals: Normal [place] QRS: Normal Ischemia: Normal ST segments. No: ST elevation c/w ischemia, ST elevation c/w repol, ST depression, Q waves Other comments: Other comments (RSR' V1) - Labs Labs: Laboratory Tests 03/02/23 03/02/23 03/02/23 01:31 01:31 01:31 WBC 7.1 RBC 4.31 Hgb 12.6 Hct 38.2 MCV 88.6 MCH 29.2 MCHC 33.0 RDW 12.5 Plt Count 213 MPV 10.0 Neut # (Auto) 4.9 Lymph # (Auto) 1.4 L Nash # (Auto) 0.5 Eos # (Auto) 0.2 Baso # (Auto) 0.1 Absolute Nucleated RBC 0.00 Nucleated RBC % 0.0 Sodium 137 Potassium 3.4 L Chloride 104 Carbon Dioxide 27 Anion Gap 6.0 BUN 16 Creatinine 0.8 Estimated GFR (MDRD) 69 L Glucose 258 H Calcium 9.0 Total Bilirubin 0.5 AST 17 ALT 22 Alkaline Phosphatase 60 Troponin I High Sens 3.1 Total Protein 7.0 Albumin 3.7 Globulin 3.3 Albumin/Globulin Ratio 1.1 Lipase 32 - Rads (name of study) chest xray Relevant Findings:: Prelim report reviewed, See rad report PD Medical Decision Making - ED course Complexity details: reviewed results, re-evaluated patient, considered differential, d/w patient ED course: No concerning nor diagnostic results on tonight's tests. 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 Return if worse in any way or if you develop new/concerning signs/symptoms. Departure - Departure Disposition: 01 Home, Self Care Clinical Impression: Palpitations Chest pain Qualifiers: Chest pain type: unspecified Qualified Code(s): R07.9 - Chest pain, unspecified Condition: Good Instructions: ED Chest Pain Atypical Unkn Cause, ED Palpitations Comments: There were no concerning or diagnostic findings on tonight's tests, including the blood test, chest x-ray, and the EKG. There was an incidental note of a high blood sugar (258). Further testing in the emergency department is not indicated for this high blood sugar, but you certainly should follow-up with your primary care provider for reevaluation of, not only the symptoms that resulted in your visit to the ER tonight, but the blood sugar as well. As we discussed, one other incidental note was a minimally low potassium (3.4, with the cutoff for low end of normal being 3.5). Discharge Date/Time: 03/02/23 04:16
[2023-03-02 01:55] LABS: ALBUMIN 3.7 g/dL (3.2-5.5); ALBUMIN/GLOBULIN RATIO 1.1 (1.0-2.2); BILIRUBIN,TOTAL 0.5 mg/dL (0.2-1.0); CREATININE 0.8 mg/dL (0.4-1.0); POTASSIUM 3.4 mmol/L (3.5-5.0)
--- OUTSIDE RECORDS SUMMARY | 2023-03-02 02:03 | EXTERNAL MEDICAL SUMMARY RPT | Continuity of Care Document ---
Author Name Unknown Address [address] [place] [address] Phone Organization [facility] Address [address] [place] [address] Phone Care Team Providers Care Residential Sales Associate Name Role Phone Unavailable Unavailable Unavailable Patrick Caballero, Carlos Unavailable Unavailable Dez Ring, Angeline Unavailable Unavailable Mark Patient Registrar, Lalo Unavailable U navailable Medications date description facility 2022-12-26 00:00 [facility]othiazide [facility] 2022-12-28 00:00 hydrochlorothiazide [facility] 2023-01-14 00:00 hydrochlorothiazide [facility] 2023-01-14 00:00 hydrochlorothiazide [facility] 2023-01-15 00:00 hydrochlorothiazide [facility] 2023-01-14 00:00 metoprolol succinate [facility] 2023-01-14 00:00 metoprolol succinate [facility] 2023-01-15 00:00 metoprolol succinate [facility] 2022-12-26 00:00 [facility]ril [facility] 2022-12-28 00:00 [facility]opril [facility] 2023-01-14 00:00 [facility]isinopril [facility] 2023-01-14 00:00 [facility]opril [facility] 2023-01-15 00:00 lisinopril [facility] 2022-12-26 00:00 bupropion hcl [facility] [place] 2022-12-28 00:00 bupropion hcl [facility] [place] 2023-01-14 00:00 bupropion hcl [facility] [place] 2023-01-14 00:00 bupropion hcl [facility] [place] 2023-01-15 00:00 bupropion hcl [facility] [place] 2022-12-26 00:00 blood sugar diagnostic [facility] [place] 2022-12-28 00:00 blood sugar diagnostic [facility] 2023-01-14 00:00 blood sugar diagnostic [facility] [place] 2023-01-14 00:00 blood sugar diagnostic [facility] [place] 2023-01-15 00:00 blood sugar diagnostic [facility] [place] 2022-12-26 00:00 nystatin [facility] [place] 2022-12-28 00:00 nystatin [facility] [place] 2023-01-14 00:00 nystatin [facility] [place] 2023-01-14 00:00 nystatin [facility] [place] 2023-01-15 00:00 nystatin [facility] [place] 2023-01-14 00:00 amlodipine [facility] [place] 2023-01-14 00:00 amlodipine [facility] 2023-01-15 00:00 amlodipine [facility] [place] 2022-12-26 00:00 lisinopril [facility] 2022-12-28 00:00 lisinopril [facility] 2023-01-14 00:00 lisinopril [facility] 2023-01-14 00:00 lisinopril [facility] 2023-01-15 00:00 lisinopril [facility] 2022-12-26 00:00 lancets [facility] 2022-12-28 00:00 lancets [facility] 2023-01-14 00:00 lancets [facility] 2023-01-14 00:00 lancets [facility] 2023-01-15 00:00 lancets [facility] 2022-12-26 00:00 erythromycin [facility] 2022-12-26 00:00 erythromycin [facility] 2022-12-26 00:00 erythromycin [facility] [place] 2023-01-14 00:00 cilostazol [facility] [place] 2023-01-14 00:00 cilostazol [facility] [place] 2023-01-15 00:00 cilostazol [facility] [place] 2022-12-26 00:00 amlodipine [facility] [place] 2022-12-28 00:00 amlodipine [facility] [place] 2023-01-14 00:00 amlodipine [facility] [place] 2023-01-14 00:00 amlodipine [facility] 2023-01-15 00:00 amlodipine [facility] 2023-01-14 00:00 amlodipine [facility] 2023-01-14 00:00 amlodipine [facility] 2023-01-15 00:00 amlodipine [facility] 2022-12-26 00:00 lisinopril [facility] 2022-12-28 00:00 lisinopril [facility] 2023-01-14 00:00 lisinopril [facility] [place] 2023-01-14 00:00 lisinopril [facility] 2023-01-15 00:00 lisinopril [facility] 2022-12-26 00:00 amlodipine [facility] 2022-12-28 00:00 amlodipine [facility] 2023-01-14 00:00 amlodipine [facility] 2023-01-14 00:00 amlodipine [facility] 2023-01-15 00:00 amlodipine [facility] 2022-12-26 00:00 erythromycin [facility] 2022-12-26 00:00 erythromycin [facility] 2022-12-26 00:00 erythromycin [facility] 2022-12-26 00:00 gabapentin [facility] 2022-12-28 00:00 gabapentin [facility] 2023-01-14 00:00 gabapentin [facility] 2023-01-14 00:00 gabapentin [facility] 2023-01-15 00:00 gabapentin [facility] 2023-01-14 00:00 metoprolol succinate [facility] 2023-01-14 00:00 metoprolol succinate [facility] 2023-01-15 00:00 metoprolol succinate [facility] 2023-01-14 00:00 metoprolol tartrate [facility] 2023-01-14 00:00 metoprolol tartrate [facility] 2023-01-15 00:00 metoprolol tartrate [facility] 2022-12-26 00:00 amlodipine [facility] 2022-12-28 00:00 amlodipine [facility] [place] 2023-01-14 00:00 amlodipine [facility] [place] 2023-01-14 00:00 amlodipine [facility] 2023-01-15 00:00 amlodipine [facility] 2023-01-14 00:00 amlodipine [facility] 2023-01-14 00:00 amlodipine [facility] 2023-01-15 00:00 amlodipine [facility] 2022-12-26 00:00 lisinopril [facility] [place] 2022-12-28 00:00 lisinopril [facility] [place] 2023-01-14 00:00 lisinopril [facility] 2023-01-14 00:00 lisinopril [facility] 2023-01-15 00:00 lisinopril [facility] 2022-12-26 00:00 hydrochlorothiazide [facility] 2022-12-28 00:00 hydrochlorothiazide [facility] 2023-01-14 00:00 hydrochlorothiazide [facility] 2023-01-14 00:00 hydrochlorothiazide [facility] 2023-01-15 00:00 hydrochlorothiazide [facility] 2022-12-26 00:00 atorvastatin [facility] 2022-12-28 00:00 atorvastatin [facility] 2023-01-14 00:00 atorvastatin [facility] 2023-01-14 00:00 atorvastatin [facility] 2023-01-15 00:00 atorvastatin [facility] 2022-12-26 00:00 nystatin [facility] 2022-12-28 00:00 nystatin [facility] [place] 2023-01-14 00:00 nystatin [facility] 2023-01-14 00:00 nystatin [facility] 2023-01-15 00:00 nystatin [facility] 2022-12-26 00:00 hydrochlorothiazide [facility] 2022-12-28 00:00 hydrochlorothiazide [facility] 2023-01-14 00:00 hydrochlorothiazide [facility] 2023-01-14 00:00 hydrochlorothiazide [facility] 2023-01-15 00:00 hydrochlorothiazide [facility] 2023-01-14 00:00 albuterol sulfate [facility] 2023-01-14 00:00 albuterol sulfate [facility] 2022-12-26 00:00 nystatin [facility] 2022-12-28 00:00 nystatin [facility] 2023-01-14 00:00 nystatin [facility] 2023-01-14 00:00 nystatin [facility] [place] 2023-01-15 00:00 nystatin [facility] 2022-12-26 00:00 gabapentin [facility] 2022-12-28 00:00 gabapentin [facility] 2023-01-14 00:00 gabapentin [facility] 2023-01-14 00:00 gabapentin [facility] [place] 2023-01-15 00:00 gabapentin [facility] [place] 2022-12-26 00:00 atorvastatin [facility] [place] 2022-12-28 00:00 atorvastatin [facility] [place] 2023-01-14 00:00 atorvastatin [facility] [place] 2023-01-14 00:00 atorvastatin [facility] [place] 2023-01-15 00:00 atorvastatin [facility] 2022-12-26 00:00 lancets [facility] [place] 2022-12-28 00:00 lancets [facility] [place] 2023-01-14 00:00 lancets [facility] [place] 2023-01-14 00:00 lancets [facility] [place] 2023-01-15 00:00 lancets [facility] [place] 2022-12-26 00:00 blood sugar diagnostic [facility] [place] 2022-12-28 00:00 blood sugar diagnostic [facility] [place] 2023-01-14 00:00 blood sugar diagnostic [facility] [place] 2023-01-14 00:00 blood sugar diagnostic [facility] [place] 2023-01-15 00:00 blood sugar diagnostic [facility] [place] 2022-12-26 00:00 nystatin [facility] [place] 2022-12-28 00:00 nystatin [facility] [place] 2023-01-14 00:00 nystatin [facility] 2023-01-14 00:00 nystatin [facility] [place] 2023-01-15 00:00 nystatin [facility] 2023-01-14 00:00 metoprolol tartrate [facility] 2023-01-14 00:00 metoprolol tartrate [facility] 2023-01-15 00:00 metoprolol tartrate [facility] 2022-12-26 00:00 bupropion hcl [facility] [place] 2022-12-28 00:00 bupropion hcl [facility] [place] 2023-01-14 00:00 bupropion hcl [facility] 2023-01-14 00:00 bupropion hcl [facility] 2023-01-15 00:00 bupropion hcl [facility] 2023-01-14 00:00 cilostazol [facility] [place] 2023-01-14 00:00 cilostazol [facility] [place] 2023-01-15 00:00 cilostazol [facility] [place] 2022-12-26 00:00 amlodipine [facility] [place] 2022-12-28 00:00 amlodipine [facility] [place] 2023-01-14 00:00 amlodipine [facility] 2023-01-14 00:00 amlodipine [facility] 2023-01-15 00:00 amlodipine [facility] 2023-01-14 00:00 amlodipine [facility] 2023-01-14 00:00 amlodipine [facility] 2023-01-15 00:00 amlodipine [facility] 2022-12-26 00:00 gabapentin [facility] 2022-12-28 00:00 gabapentin [facility] 2023-01-14 00:00 gabapentin [facility] 2023-01-14 00:00 gabapentin [facility] 2023-01-15 00:00 gabapentin [facility] 2023-01-14 00:00 cilostazol [facility] 2023-01-14 00:00 cilostazol [facility] 2023-01-15 00:00 cilostazol [facility] 2022-12-26 00:00 atorvastatin [facility] 2022-12-28 00:00 atorvastatin [facility] 2023-01-14 00:00 atorvastatin [facility] 2023-01-14 00:00 atorvastatin [facility] [place] 2023-01-15 00:00 atorvastatin [facility] [place] 2022-12-26 00:00 atorvastatin [facility] [place] 2022-12-28 00:00 atorvastatin [facility] [place] 2023-01-14 00:00 atorvastatin [facility] [place] 2023-01-14 00:00 atorvastatin [facility] [place] 2023-01-15 00:00 atorvastatin [facility] [place] 2022-12-26 00:00 nystatin [facility] [place] 2022-12-28 00:00 nystatin [facility] [place] 2023-01-14 00:00 nystatin [facility] [place] 2023-01-14 00:00 nystatin [facility] [place] 2023-01-15 00:00 nystatin [facility] [place] 2023-01-14 00:00 albuterol sulfate [facility] [place] 2023-01-14 00:00 metoprolol succinate [facility] [place] 2023-01-14 00:00 metoprolol succinate [facility] [place] 2023-01-15 00:00 metoprolol succinate [facility] 2022-12-26 00:00 gabapentin [facility] [place] 2022-12-28 00:00 gabapentin [facility] [place] 2023-01-14 00:00 gabapentin [facility] [place] 2023-01-14 00:00 gabapentin [facility] [place] 2023-01-15 00:00 gabapentin [facility] [place] 2022-12-26 00:00 erythromycin [facility] [place] 2022-12-26 00:00 erythromycin [facility] [place] 2022-12-26 00:00 erythromycin [facility] [place] 2023-01-14 00:00 metoprolol tartrate [facility] 2023-01-14 00:00 metoprolol tartrate [facility] 2023-01-15 00:00 metoprolol tartrate [facility] 2023-01-14 00:00 albuterol sulfate [facility] [place] 2022-12-26 00:00 bupropion hcl [facility] [place] 2022-12-28 00:00 bupropion hcl [facility] [place] 2023-01-14 00:00 bupropion hcl [facility] 2023-01-14 00:00 bupropion hcl [facility] 2023-01-15 00:00 bupropion hcl [facility] 2023-01-14 00:00 cilostazol [facility] 2023-01-14 00:00 cilostazol [facility] 2023-01-15 00:00 cilostazol [facility] 2022-12-26 00:00 erythromycin [facility] 2022-12-26 00:00 erythromycin [facility] 2022-12-26 00:00 erythromycin [facility] 2023-01-14 00:00 metoprolol succinate [facility] 2023-01-14 00:00 metoprolol succinate [facility] 2023-01-15 00:00 metoprolol succinate [facility] 2023-01-14 00:00 metoprolol tartrate [facility] 2023-01-14 00:00 metoprolol tartrate [facility] 2023-01-15 00:00 metoprolol tartrate [facility] 2022-12-26 00:00 nystatin [facility] 2022-12-28 00:00 nystatin [facility] 2023-01-14 00:00 nystatin [facility] [place] 2023-01-14 00:00 nystatin [facility] 2023-01-15 00:00 nystatin [facility] 2022-12-26 00:00 nystatin [facility] 2022-12-28 00:00 nystatin [facility] 2023-01-14 00:00 nystatin [facility] 2023-01-14 00:00 nystatin [facility] 2023-01-15 00:00 nystatin [facility] 2022-12-26 00:00 nystatin [facility] 2022-12-28 00:00 nystatin [facility] 2023-01-14 00:00 nystatin [facility] 2023-01-14 00:00 nystatin [facility] 2023-01-15 00:00 nystatin [facility] 2022-12-26 00:00 blood sugar diagnostic [facility] 2022-12-28 00:00 blood sugar diagnostic [facility] 2023-01-14 00:00 blood sugar diagnostic [facility] 2023-01-14 00:00 blood sugar diagnostic [facility] 2023-01-15 00:00 blood sugar diagnostic [facility] 2022-12-26 00:00 lancets [facility] 2022-12-28 00:00 lancets [facility] 2023-01-14 00:00 lancets [facility] 2023-01-14 00:00 lancets [facility] 2023-01-15 00:00 lancets [facility] 2022-12-26 00:00 bupropion hcl [facility] [place] 2022-12-28 00:00 bupropion hcl [facility] [place] 2023-01-14 00:00 bupropion hcl [facility] 2023-01-14 00:00 bupropion hcl [facility] 2023-01-15 00:00 bupropion hcl [facility] 2022-12-26 00:00 hydrochlorothiazide [facility] 2022-12-28 00:00 hydrochlorothiazide [facility] 2023-01-14 00:00 hydrochlorothiazide [facility] 2023-01-14 00:00 hydrochlorothiazide [facility] 2023-01-15 00:00 hydrochlorothiazide [facility] Problems date description facility 2022-12-26 00:00 Syncope [facility] 2022-12-26 00:00 Syncope [facility] 2022-12-26 00:00 Syncope [facility] 2022-12-26 00:00 Intermediate coronary syndrome [facility] 2022-12-26 00:00 Intermediate coronary syndrome [facility] 2022-12-26 00:00 Intermediate coronary syndrome [facility] 2022-12-26 00:00 Preinfarction syndrome [facility] 2022-12-26 00:00 Preinfarction syndrome [facility] 2022-12-26 00:00 Preinfarction syndrome [facility] 2022-12-26 00:00 Unstable angina [facility] 2022-12-26 00:00 Unstable angina [facility] 2022-12-26 00:00 Unstable angina [facility] 2022-12-26 00:00 Syncope and collapse [facility] 2022-12-26 00:00 Syncope and collapse [facility] 2022-12-26 00:00 Syncope and collapse [facility] 2023-01-14 00:00 Productive cough Walk[facility]In [facility] 2023-01-14 00:00 Pulmonary congestion [facility] 2023-01-14 00:00 Cough [facility] 2023-01-14 00:00 Other symptoms invol ving respiratory system and chest [facility] [place] 2023-01-14 00:00 Other specified cough [facility] [place] 2023-01-14 00:00 Other specified symp toms and signs involving the circulatory and respiratory systems [facility] [place] Procedures date description facility 2022-12-26 00:00 Visit Code Hold [facility] [place] 2022-12-26 00:00 Visit Code Hold [facility] [place] 2022-12-26 00:00 Visit Code Hold [facility] [place] 2023-01-14 00:00 Visit Code Hold [facility] [place] 2023-01-14 00:00 Visit Code Hold [facility] [place] Social History date description facility 2022-12-26 00:00 Former smoker [facility] [place] 2022-12-26 00:00 Former smoker [facility] [place] 2022-12-26 00:00 Former smoker [facility] [place] 2023-01-14 00:00 Former smoker [facility] [place] Vital Signs date measurement value units 2022-12-26 00:00 BMI 29.66 kg/m2 2022-12-26 00:00 BP_diastolic 69 mmHg 2022-12-26 00:00 BP_diastolic 83 mmHg 2022-12-26 00:00 BP_systolic 166 mmHg 2022-12-26 00:00 BP_systolic 203 mmHg 2022-12-26 00:00 BSA 1.73 (units unkn own) 2022-12-26 00:00 heart_rate 77 /min 2022-12-26 00:00 height_metric 156.21 cm 2022-12-26 00:00 height_standard 61.5 in 2022-12-26 00:00 respiration_rate 22 /min 2022-12-26 00:00 temperature_metric 36.33 C 2022-12-26 00:00 temperature_standard 97.4 F 2022-12-26 00:00 weight_metric 72.12 kg 2022-12-26 00:00 weight_standard 159 lb 2023-01-14 00:00 BMI 30.22 kg/m2 2023-01-14 00:00 BP_diastolic 67 mmHg 2023-01-14 00:00 BP_systolic 164 mmHg 2023-01-14 00:00 heart_rate 73 /min 2023-01-14 00:00 height_metric 156.21 cm 2023-01-14 00:00 height_standard 61.5 in 2023-01-14 00:00 respiration_rate 20 /min 2023-01-14 00:00 temperature_metric 36.5 C 2023-01-14 00:00 temperature_standard 97.7 F 2023-01-14 00:00 weight_metric 73.48 kg 2023-01-14 00:00 weight_standard 162 lb
[2023-03-02 04:17] VITALS: BP 158/64
--- NOTE | 2023-03-02 07:52 | XRAY Report ---
PROCEDURE: Chest 2 View X-Ray INDICATIONS: chest pain TECHNIQUE: 2 views of the chest were acquired. COMPARISON: Chest x-ray, 01/14/2023. FINDINGS: Surgical changes and devices: None. Lungs and pleura: No pleural effusions or pneumothorax. Lungs are clear. Mediastinum: Mediastinal contours appear normal. Heart size is normal. Bones and chest wall: No suspicious bony lesions. Overlying soft tissues appear unremarkable. IMPRESSION: No acute cardiopulmonary process. No significant discrepancy with the preliminary interpretation. Reviewed by: Logan Pearson MD on 03/02/2023 7:51 AM PDT Approved by: Logan Pearson MD on 03/02/2023 7:51 AM PDT Station ID: [id number]
== END 2023-03-02 04:16 | disposition home or self-care (01) ==
LOC: EDUNIT# → ED 01:16
DX: R00.2 Palpitations (principal); R07.9 Chest pain, unspecified; I10 Essential (primary) hypertension; E78.00 Pure hypercholesterolemia, unspecified; E11.9 Type 2 diabetes mellitus without complications; Z79.82 Long term (current) use of aspirin; Z79.899 Other long term (current) drug therapy
CPT/HCPCS: 36415; 80053; 83690; 84484; 85025; 93005; 99283; 99284

== ENCOUNTER 2023-03-04 13:30 | Outpatient (CLI) | payer MEDICARE ==
--- NOTE | 2023-03-04 17:22 | Ultrasound Report ---
PROCEDURE: Duplex Lwr Ext Arterial Bilat INDICATIONS: ARTHEROSCIEROSIS OF ARTERIES TECHNIQUE: Color and pulse Doppler interrogation was performed of both lower extremity arterial systems, with im age documentation. COMPARISON: None FINDINGS: Right lower extremity: Common femoral artery: 147.3 cm/sec, with triphasic flow. Deep femoral artery: 94.3 cm/sec, with triphasic flow. Proximal superficial femoral artery: 95.4 cm/sec, with triphasic flow. Mid superficial femoral artery: 113.1 cm/sec, with triphasic flow. Distal superficial femoral artery: 213.6 cm/sec, with triphasic flow. Popliteal artery: 45.3 cm/sec, with triphasic flow. Posterior tibial artery: 68.8 cm/sec, with triphasic flow. Anterior tibial artery/dorsalis pedis: 67.5 cm/sec, with triphasic flow. Schaefer-scale imaging description: Scattered atheromatous plaque is present within the right common fem oral artery and the right mid SFA. No focal hemodynamically significant stenosis. Left lower extremity: Common femoral artery: 171.4 cm/sec, with triphasic flow. Deep femoral artery: 75.3 cm/sec, with triphasic flow. Proximal superficial femoral artery: 93.5 cm/sec, with triphasic flow. Mid superficial femoral artery: 108.4 cm/sec, with triphasic flow. Distal superficial femoral artery: 115.5 cm/sec, with triphasic flow. Popliteal artery: 41.5 cm/sec, with triphasic flow. Posterior tibial artery: 80.5 cm/sec, with triphasic flow. Anterior tibial artery/dorsalis pedis: 43.5 cm/sec, with triphasic flow. Schaefer-scale imaging description: Scattered atheromatous plaque is present in the left common femoral artery and the popliteal artery. Right TABBY: 1.0 Left TABBY: 1.0 IMPRESSION: No focal hemodynamically significant stenosis of the bilateral lower extremities. Reviewed by: Michelle Velez MD on 03/04/2023 5:21 PM PDT Approved by: Michelle Velez MD on 03/04/2023 5:21 PM PDT Station ID: [id number]
== END 2023-03-04 13:31 | disposition home or self-care (01) ==
LOC: DI 13:30
PROVIDERS: ATTEND Nurse Practitioner Family
DX: I70.209 Unspecified atherosclerosis of native arteries of extremities, unspecified extremity (principal)
CPT/HCPCS: 93922; 93925

== ENCOUNTER 2023-03-16 18:59 | Outpatient (CLI) | payer MEDICARE | END 2023-03-16 19:00 | disposition critical access hospital (66) | LOC: EMS 18:59 | DX: R07.89 Other chest pain (principal); M54.2 Cervicalgia | CPT/HCPCS: A0425; A0429 ==

== ENCOUNTER 2023-03-16 19:31 | Emergency (ER) | payer MEDICARE ==
--- OUTSIDE RECORDS SUMMARY | 2023-03-16 19:49 | EXTERNAL MEDICAL SUMMARY RPT | Continuity of Care Document ---
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 Name Role Phone Unavailable Unavailable Unavailable Patrick [...] Jah 2023-01-14 00:00 metoprolol succinate [facility] [place] 2023-01-15 00:00 metoprolol succinate [facility] [place] 2022-12-26 [...] [facility] [place] 2022-12-28 00:00 bupropion hcl [facility] [place] 2023-01-14 00:00 bupropion hcl [facility] [place] 2023-01-14 00:00 bupropion hcl [facility] [place] 2023-01-15 00:00 bupropion hcl [facility] [place] 2022-12-26 00:00 blood sugar diagnostic [facility] [place] 2022-12-28 00:00 blood sugar diagnostic [facility] [place] 2023-01-14 00:00 blood sugar diagnostic [facility] [place] 2023-01-14 00:00 blood sugar diagnostic [facility] [place] 2023-01-15 00:00 blood sugar diagnostic [facility] [place] 2022-12-26 00:00 nystatin [facility] [place] 2022-12-28 00:00 nystatin [facility] [place] 2023-01-14 00:00 nystatin [facility] [place] 2023-01-14 00:00 nystatin [facility] [place] 2023-01-15 00:00 nystatin [facility] [place] 2023-01-14 00:00 amlodipine [facility] [place] 2023-01-14 00:00 amlodipine [facility] [place] 2023-01-15 00:00 amlodipine [facility] [place] 2022-12-26 00:00 lisinopril [facility] [place] 2022-12-28 00:00 lisinopril [facility] [place] 2023-01-14 00:00 lisinopril [facility] [place] 2023-01-14 00:00 lisinopril [facility] [place] 2023-01-15 00:00 lisinopril [facility] [...] [place] 2023-01-15 00:00 metoprolol succinate [facility] [place] 2023-01-14 00:00 metoprolol tartrate Walk-In Cli [facility] [place] 2023-01-14 [...] [facility] [place] 2022-12-26 00:00 lancets [facility] [place] 2022-12-28 00:00 lancets [facility] [place] 2023-01-14 00:00 lancets [facility] [place] 2023-01-14 00:00 lancets [facility] [place] 2023-01-15 00:00 lancets [facility] [place] 2022-12-26 00:00 blood sugar diagnostic [facility] [place] 2022-12-28 00:00 blood sugar diagnostic [facility] [place] 2023-01-14 00:00 blood sugar diagnostic [facility] [place] 2023-01-14 00:00 blood sugar diagnostic [facility] [place] 2023-01-15 00:00 blood sugar diagnostic [facility] [place] 2022-12-26 00:00 nystatin [facility] [place] 2022-12-28 00:00 nystatin [facility] [place] 2023-01-14 00:00 nystatin [facility] [place] 2023-01-14 00:00 nystatin [facility] [place] 2023-01-15 00:00 nystatin [facility] [place] 2023-01-14 00:00 metoprolol tartrate Walk-In Cli [facility] [place] 2023-01-14 00:00 metoprolol tartrate [facility] [place] 2023-01-15 00:00 metoprolol tartrate [facility] [place] 2022-12-26 00:00 bupropion hcl [facility] [place] 2022-12-28 00:00 bupropion hcl [facility] [...] [facility] [place] 2022-12-28 00:00 atorvastatin [facility] [place] 2023-01-14 00:00 atorvastatin [facility] [place] 2023-01-14 00:00 atorvastatin [facility] [place] 2023-01-15 00:00 atorvastatin [facility] [place] 2022-12-26 00:00 nystatin [facility] [place] 2022-12-28 00:00 nystatin [facility] [...] [facility] [place] Problems date description facility 2022-12-26 00:00 Syncope [facility] [place] 2022-12-26 00:00 Syncope [facility] [place] 2022-12-26 00:00 Syncope [facility] [place] 2022-12-26 00:00 Intermediate coronary syndrome [facility] [place] 2022-12-26 00:00 Intermediate coronary syndrome [facility] [place] 2022-12-26 00:00 Intermediate coronary syndrome [facility] [place] 2022-12-26 00:00 Preinfarction syndrome [facility] [place] 2022-12-26 00:00 Preinfarction syndrome [facility] [place] 2022-12-26 00:00 Preinfarction syndrome [facility] [place] 2022-12-26 00:00 Unstable angina [facility] [place] 2022-12-26 00:00 Unstable angina [facility] [place] 2022-12-26 00:00 Unstable angina [facility] [place] 2022-12-26 00:00 Syncope and collapse [facility] [place] 2022-12-26 00:00 Syncope and collapse [facility] [place] 2022-12-26 00:00 Syncope and collapse [facility] [place] 2023-01-14 00:00 Productive cough [facility] [place] 2023-01-14 00:00 Pulmonary congestion [facility] [place] 2023-01-14 00:00 Cough [facility] [place] 2023-01-14 00:00 Other symptoms invol ving respiratory system and chest [facility] [place] 2023-01-14 00:00 Other specified cough [facility] [place] 2023-01-14 00:00 Other specified symp toms and signs involving the circulatory and respiratory systems [facility] [place] Procedures date description facility 2022-12-26 00:00 Visit Code Hold [facility] [place] 2022-12-26 00:00 Visit Code Hold [facility] [place] 2022-12-26 00:00 Visit Code Hold [facility] [place] 2023-01-14 00:00 Visit Code Hold [facility] [place] 2023-01-14 00:00 Visit Code Hold [facility] [place] Social History date description facility 2022-12-26 00:00 Former smoker [facility] [place] 2022-12-26 00:00 Former smoker [facility] [place] 2022-12-26 00:00 Former smoker [facility] [place] 2023-01-14 00:00 Former smoker [facility] [place] Vital Signs date measurement value units 2022-12-26 [...]
[2023-03-16] MEDS ORDERED: ASPIRIN CHEW 81 MG TABLET PO STA (20:24)
[2023-03-16] MEDS ORDERED: SODIUM CHLORIDE 0.9% 1,000 ML IV STA (20:24)
[2023-03-16 20:47] LABS: BASOPHILS # (AUTO) 0.1 10^3/uL (0.0-0.1); BASOPHILS % (AUTO) 0.8 %; EOSINOPHILS # (AUTO) 0.1 10^3/uL (0.0-0.7); EOSINOPHILS % (AUTO) 1.6 %; HCT - HEMATOCRIT 39.4 % (37.0-47.0); HGB - HEMOGLOBIN 12.9 g/dL (12.0-16.0); LYMPHOCYTES # (AUTO) 1.7 10^3/uL (1.5-3.5); LYMPHOCYTES % (AUTO) 22.8 %; MEAN CORPUSCULAR HEMOGLOBIN 29.1 pg (27.0-31.0); MEAN CORPUSCULAR HGB CONC 32.7 g/dL (32.0-36.0); MEAN CORPUSCULAR VOLUME 88.7 fL (81.0-99.0); MEAN PLATELET VOLUME 10.2 fL (7.9-10.8); MONOCYTES # (AUTO) 0.4 10^3/uL (0.0-1.0); MONOCYTES % (AUTO) 5.8 %; NEUTROPHILS # (AUTO) 5.1 10^3/uL (1.5-6.6); NEUTROPHILS % (AUTO) 68.6 %; PLT - PLATELET COUNT 231 10^3/uL (130-450); RED BLOOD COUNT 4.44 10^6/uL (4.20-5.40); RED CELL DISTRIBUTION WIDTH 12.7 % (12.0-15.0); WHITE BLOOD COUNT 7.5 x10^3/uL (4.8-10.8)
[2023-03-16 21:01] LABS: ALBUMIN 3.9 g/dL (3.2-5.5); ALBUMIN/GLOBULIN RATIO 1.2 (1.0-2.2); BILIRUBIN,TOTAL 0.6 mg/dL (0.2-1.0); CALCIUM 9.4 mg/dL (8.5-10.3); CREATININE 0.9 mg/dL (0.4-1.0); POTASSIUM 3.4 mmol/L (3.5-5.0); TOTAL PROTEIN 7.2 g/dL (6.7-8.2)
--- NOTE | 2023-03-16 22:17 | ED Physician Documentation ---
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, Ectopic : None HEENT: Chronic vision loss Psych: Anxiety Musculoskeletal: Other (issue with neck) Derm: Rosacea - Past Surgical History Past Surgical History: Yes General: Appendectomy Ortho: Carpal Tunnel surgery /SALES OFFICE COORDINATOR: Oophrectomy, Other Cardiovascular: Cardiac catheterization - Present Medications Home Medications: Ambulatory Orders Medication Instructions Recorded Confirmed Aspirin Chewable [[facility] [place] 81 mg PO DAILY 08/26/13 12/31/21 Aspirin] Atorvastatin Calcium 20 mg PO DAILY 05/14/19 12/31/21 Lisinopril/Hydrochlorothiazide 1 each PO DAILY 05/14/19 12/31/21 [Lisinopril-Hctz 20-12.5 mg Tab] Nitroglycerin [Nitrostat] 0.4 mg SL ONCE 05/14/19 12/31/21 Alprazolam [Xanax] 0.25 mg PO DAILY PRN 12/31/21 12/31/21 Nitroglycerin [Nitrostat] 0.4 mg SL Q5MIN PRN #25 tablet 03/16/23 - Allergies Allergies/Adverse Reactions: Allergies Allergy/AdvReac Type Severity Reaction Status Date / Time meperidine HCl * AdvReac Unknown Nausea Verified 03/02/23 01:24 [From Demerol] niacin AdvReac Unknown Hives Verified 03/02/23 01:24 prednisone AdvReac Hives Verified 03/02/23 01:24 - Social History Does the pt smoke?: No Smoking Status: Never smoker Does the pt drink ETOH?: No Does the pt have substance abuse?: No - Immunizations Immunizations are current?: Yes - POLST Patient has POLST: No Results - Vitals Vitals: Vital Signs - 24 hr 03/16/23 03/16/23 19:37 20:42 Temperature 97.7 C H Heart Rate 65 64 Respiratory 16 16 Rate Blood Pressure 134/101 H 132/97 H O2 Saturation 98 98 Oxygen O2 Source Room air - Labs Labs: Laboratory Tests 0703/16/23 03/16/23 20:37 20:37 20:37 WBC 7.5 RBC 4.44 Hgb 12.9 Hct 39.4 MCV 88.7 MCH 29.1 MCHC 32.7 RDW 12.7 Plt Count 231 MPV 10.2 Neut # (Auto) 5.1 Lymph # (Auto) 1.7 [place] # (Auto) 0.4 Eos # (Auto) 0.1 Baso # (Auto) 0.1 Absolute Nucleated RBC 0.00 Nucleated RBC % 0.0 Sodium 138 Potassium 3.4 L Chloride 102 Carbon Dioxide 27 Anion Gap 9.0 BUN 17 Creatinine 0.9 Estimated GFR (MDRD) 60 L Glucose 119 H Calcium 9.4 Total Bilirubin 0.6 AST 16 ALT 21 Alkaline Phosphatase 65 Troponin I High Sens < 2.3 L Total Protein 7.2 Albumin 3.9 Globulin 3.3 Albumin/Globulin Ratio 1.2 Lipase 28 03/16/23 21:38 WBC RBC Hgb Hct MCV MCH MCHC RDW Plt Count MPV Neut # (Auto) Lymph # (Auto) [place] # (Auto) Eos # (Auto) Baso # (Auto) Absolute Nucleated RBC Nucleated RBC % Sodium Potassium Chloride Carbon Dioxide Anion Gap BUN Creatinine Estimated GFR (MDRD) Glucose Calcium Total Bilirubin AST ALT Alkaline Phosphatase Troponin I High Sens < 2.3 L Total Protein Albumin Globulin Albumin/Globulin Ratio Lipase Departure - Departure Disposition: 01 Home, Self Care Clinical Impression: Chest pain Qualifiers: Chest pain type: unspecified Qualified Code(s): R07.9 - Chest pain, unspecified Condition: Stable Instructions: Angina Dc Prescriptions: Nitroglycerin [Nitrostat] 0.4 mg SL Q5MIN PRN #25 tablet PRN Reason: Chest Pain Comments: Your EKG looks great and both sets of your cardiac enzymes are completely negative. It is not clear exactly what the cause of your chest pain once tonight, though with your history, certainly would be suspicious for angina. However, since The nitroglycerin was unhelpful and your cardiac enzymes are normal, it is possible that it was not pain coming from your heart at all. For now, we will discharge you home, with a refill prescription of nitroglycerin. This has been electronically transmitted to the [facility] in [place], your pharmacy of choice on record. When you see your miniature model maker on Wednesday, please discuss the episode you had today with him if he feels that you need any further work-up or evaluation for this. If you develop chest pain again, please take your as needed nitroglycerin, according to written directions. If you continue have chest pain and does not resolve after the 3 doses of nitroglycerin, or if you feel significantly worse with accompanying symptoms like shortness of breath, nausea, or facial sweating, please return to the emergency department immediately.
[2023-03-16 22:58] VITALS: BP 136/97
== END 2023-03-16 22:55 | disposition home or self-care (01) ==
LOC: EDUNIT# → ED 19:31
DX: R07.9 Chest pain, unspecified (principal)
CPT/HCPCS: 36415; 80053; 83690; 84484; 85025; 93005; 99283; 99284; A9270

== ENCOUNTER 2023-04-14 13:52 | Outpatient (CLI) | payer MEDICARE ==
--- NOTE | 2023-04-14 17:08 | MRI Report ---
PROCEDURE: BRAIN WO INDICATIONS: HIST OF CLOSED HEAD INJURY TECHNIQUE: Noncontrast axial T1 spin echo, axial T2 fast spin echo, sagittal and axial FLAIR, coronal T2 fast sp in echo, axial gradient echo, axial diffusion and ADC through the brain. COMPARISON: CT head dated 07/04/2018. FINDINGS: Image quality: Excellent. CSF Spaces: Basal cisterns are patent. No extra-axial fluid collections. Ventricles are normal in size and shape. Brain: No intracranial masses or hemorrhage. Schaefer/white matter interface is normal. Brainstem appe ars normal. Diffusion-weighted images demonstrate no acute ischemic insult. No chronic ischemic ins ults. Normal intravascular flow voids are present. Subcortical and periventricular hypodensities are consistent with microvascular ischemic disease and age-related cerebral volume loss. Skull and face: Calvarium has normal marrow signal. Orbits appear normal. Sinuses: Sinuses and mastoids are clear. IMPRESSION: 1. No acute intracranial abnormality. 2. Microvascular ischemic disease and age-related cerebral volume loss. Reviewed by: Be Anand on 04/14/2023 5:07 PM PDT Approved by: Be Anand on 04/14/2023 5:07 PM PDT Station ID: [id number]
== END 2023-04-14 13:53 | disposition home or self-care (01) ==
LOC: DI 13:52
PROVIDERS: ATTEND Nurse Practitioner Family
DX: I67.82 Cerebral ischemia (principal)

== ENCOUNTER 2023-04-15 07:00 | Outpatient (CLI) | payer MEDICARE ==
--- NOTE | 2023-04-15 10:55 | XRAY Report ---
PROCEDURE: Chest 2 View X-Ray INDICATIONS: CHRONIC COUGH TECHNIQUE: 2 views of the chest were acquired. COMPARISON: Radiograph 03/02/2023. FINDINGS: Surgical changes and devices: None. Lungs and pleura: No pleural effusions or pneumothorax. Lungs are clear. Mediastinum: Mediastinal contours appear normal. Heart size is normal. Aortic arch is calcified i ndicating atherosclerosis. Bones and chest wall: No suspicious bony lesions. Overlying soft tissues appear unremarkable. IMPRESSION: No acute cardiopulmonary process. Reviewed by: Yoana Mckeon MD on 04/15/2023 10:54 AM PDT Approved by: Yoana Mckeon MD on 04/15/2023 10:54 AM PDT Station ID: [id number]
== END 2023-04-15 23:59 | disposition home or self-care (01) ==
LOC: DI.S 07:00
PROVIDERS: ATTEND Physician Assistant
DX: R05.3 Chronic cough (principal)

== ENCOUNTER 2023-07-03 | Emergency (ER) | payer MEDICARE ==
[2023-07-03 00:40] LABS: BASOPHILS # (AUTO) 0.1 10^3/uL (0.0-0.1); BASOPHILS % (AUTO) 0.9 %; EOSINOPHILS # (AUTO) 0.2 10^3/uL (0.0-0.7); EOSINOPHILS % (AUTO) 2.9 %; HCT - HEMATOCRIT 39.5 % (37.0-47.0); HGB - HEMOGLOBIN 12.9 g/dL (12.0-16.0); LYMPHOCYTES # (AUTO) 1.6 10^3/uL (1.5-3.5); MEAN CORPUSCULAR HEMOGLOBIN 29.5 pg (27.0-31.0); MEAN CORPUSCULAR HGB CONC 32.7 g/dL (32.0-36.0); MEAN CORPUSCULAR VOLUME 90.2 fL (81.0-99.0); MEAN PLATELET VOLUME 10.1 fL (7.9-10.8); MONOCYTES # (AUTO) 0.5 10^3/uL (0.0-1.0); MONOCYTES % (AUTO) 6.6 %; NEUTROPHILS # (AUTO) 5.5 10^3/uL (1.5-6.6); NEUTROPHILS % (AUTO) 69.3 %; PLT - PLATELET COUNT 215 10^3/uL (130-450); RED BLOOD COUNT 4.38 10^6/uL (4.20-5.40); RED CELL DISTRIBUTION WIDTH 12.9 % (12.0-15.0)
[2023-07-03 00:52] LABS: ALBUMIN 4.3 g/dL (3.2-5.5); ALBUMIN/GLOBULIN RATIO 1.5 (1.0-2.2); BILIRUBIN,TOTAL 0.4 mg/dL (0.2-1.0); CALCIUM 9.9 mg/dL (8.5-10.3); POTASSIUM 4.3 mmol/L (3.5-4.5); TOTAL PROTEIN 7.1 g/dL (6.4-8.9)
--- NOTE | 2023-07-03 01:32 | ED Physician Documentation ---
History of Present Illness - Stated complaint Stated Complaint: THROAT PX - Chief complaint Chief Complaint: Abd Pain - History obtained from History obtained from: Patient - Additonal information Additional information: 83yF, former smoker with pmh dm, htn, hld, p/w throat pain and brb with throat clearing since yesterday. patient states she has had copious mucus in her throat for about a month and just noticed blood for the first time, prompting her to come to the ED. denies cough, fever, cp, soa, pleurisy. she does have chronic BL leg swelling she attributes to venous insufficiency. 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, Ectopic : None HEENT: Chronic vision loss Psych: Anxiety Musculoskeletal: Other (issue with neck) Derm: Rosacea - Past Surgical History Past Surgical History: Yes General: Appendectomy Ortho: Carpal Tunnel surgery /GOLD LEAF PRINTER: Oophrectomy, Other Cardiovascular: Cardiac catheterization - Present Medications Home Medications: Ambulatory Orders Medication Instructions Recorded Confirmed Aspirin Chewable [St Reyes 81 mg PO DAILY 08/26/13 12/31/21 Aspirin] Atorvastatin Calcium 20 mg PO DAILY 05/14/19 12/31/21 Lisinopril/Hydrochlorothiazide 1 each PO DAILY 05/14/19 12/31/21 [Lisinopril-Hctz 20-12.5 mg Tab] Nitroglycerin [Nitrostat] 0.4 mg SL ONCE 05/14/19 12/31/21 Alprazolam [Xanax] 0.25 mg PO DAILY PRN 12/31/21 12/31/21 Nitroglycerin [Nitrostat] 0.4 mg SL Q5MIN PRN #25 tablet 03/16/23 - Allergies Allergies/Adverse Reactions: Allergies Allergy/AdvReac Type Severity Reaction Status Date / Time meperidine HCl * AdvReac Unknown Nausea Verified 07/03/23 00:15 [From Demerol] niacin AdvReac Unknown Hives Verified 07/03/23 00:15 prednisone AdvReac Hives Verified 07/03/23 00:15 - Social History Does the pt smoke?: No Smoking Status: Never smoker Does the pt drink ETOH?: No Does the pt have substance abuse?: No - Immunizations Immunizations are current?: Yes - POLST Patient has POLST: No PD ED PE NORMAL - Vitals Vital signs reviewed: Yes - General General: Alert and oriented X 3, No acute distress, Well developed/nourished - HEENT HEENT: Atraumatic, PERRL, EOMI - Neck Neck: Supple, no meningeal sign - Cardiac Cardiac: RRR - Respiratory Respiratory: No respiratory distress, Clear bilaterally - Abdomen Abdomen: Non tender, Non distended - Derm Derm: Normal color, Warm and dry - Extremities Extremities: No calf tenderness / cord, Other (BL 1+ pitting edema. ) Results - Vitals Vitals: Vital Signs - 24 hr 07/03/23 00:11 Temperature 36.5 C Heart Rate 77 Respiratory 18 Rate Blood Pressure 150/51 H O2 Saturation 96 Oxygen O2 Source Nasal cannula - Labs Labs: Laboratory Tests 07/03/23 07/03/23 07/03/23 00:15 00:34 00:34 WBC 8.0 RBC 4.38 Hgb 12.9 Hct 39.5 MCV 90.2 MCH 29.5 MCHC 32.7 RDW 12.9 Plt Count 215 MPV 10.1 Neut # (Auto) 5.5 Lymph # (Auto) 1.6 [place] # (Auto) 0.5 Eos # (Auto) 0.2 Baso # (Auto) 0.1 Absolute Nucleated RBC 0.00 Nucleated RBC % 0.0 D-Dimer Sodium 139 Potassium 4.3 Chloride 101 Carbon Dioxide 34 H Anion Gap 4.0 L BUN 22 H Creatinine 1.0 Estimated GFR (MDRD) 53 L Glucose 151 H Calcium 9.9 Total Bilirubin 0.4 AST 14 ALT 18 Alkaline Phosphatase 68 Total Protein 7.1 Albumin 4.3 Globulin 2.8 Albumin/Globulin Ratio 1.5 Lipase 33 Nasal Adenovirus (PCR) NOT DETECTED Nasal B. parapertussis DNA (PCR) NOT DETECTED Nasal Coronavir 229E PCR NOT DETECTED Nasal Coronavir HKU1 PCR NOT DETECTED Nasal Coronavir NL63 PCR NOT DETECTED Nasal Coronavir OC43 PCR NOT DETECTED Nasal Enterovir/Rhinovir PCR NOT DETECTED Nasal Influenza B PCR NOT DETECTED Nasal Influenza A PCR NOT DETECTED Nasal Parainfluen 1 PCR NOT DETECTED Nasal Parainfluen 2 PCR NOT DETECTED Nasal Parainfluen 3 PCR NOT DETECTED Nasal Parainfluen 4 PCR NOT DETECTED Nasal RSV (PCR) NOT DETECTED Nasal B.pertussis DNA PCR NOT DETECTED Nasal C.pneumoniae (PCR) NOT DETECTED [place] Human Metapneumo PCR NOT DETECTED Nasal M.pneumoniae (PCR) NOT DETECTED Nasal SARS-CoV-2 (PCR) NOT DETECTED 07/03/23 01:40 WBC RBC Hgb Hct MCV MCH MCHC RDW Plt Count MPV Neut # (Auto) Lymph # (Auto) [place] # (Auto) Eos # (Auto) Baso # (Auto) Absolute Nucleated RBC Nucleated RBC % D-Dimer 248.1 Sodium Potassium Chloride Carbon Dioxide Anion Gap BUN Creatinine Estimated GFR (MDRD) Glucose Calcium Total Bilirubin AST ALT Alkaline Phosphatase Total Protein Albumin Globulin Albumin/Globulin Ratio Lipase Nasal Adenovirus (PCR) Nasal B. parapertussis DNA (PCR) Nasal Coronavir 229E PCR Nasal Coronavir HKU1 PCR Nasal Coronavir NL63 PCR Nasal Coronavir OC43 PCR Nasal Enterovir/Rhinovir PCR Nasal Influenza B PCR Nasal Influenza A PCR Nasal Parainfluen 1 PCR Nasal Parainfluen 2 PCR Nasal Parainfluen 3 PCR Nasal Parainfluen 4 PCR Nasal RSV (PCR) Nasal B.pertussis DNA PCR Nasal C.pneumoniae (PCR) [place] Human Metapneumo PCR Nasal M.pneumoniae (PCR) Nasal SARS-CoV-2 (PCR) PD Medical Decision Making - ED course ED course: 83yF presents with blood in sputum, found to have normal hb. low suspicion for pneumonia given no cough, fever, cp, soa. low pretest probability of PE given few risk factors so d-dimer was ordered which was negative. xray is backed up tonight and patient states she doesn't want to wait. discussed with patient option of outpatient f/u with pcp to work up for lung cancer and she opted for this. strict return precautions given. Departure - Departure Disposition: Home, Self Care Clinical Impression: Blood in sputum Condition: Stable Instructions: ED Hemoptysis Comments: You were seen in the emergency department for Blood in the sputum. D-dimers and was normal, effectively ruling out pulmonary embolism as a cause. You could just have irritation in your throat that caused the blood. You also should have an outpatient evaluation with your primary care provider because this could be a sign of something more serious such as cancer in the lungs. Please follow-up with your primary care provider and return to the emergency department if you have any new or worsening symptoms or other concerns. Forms: PCP List
[2023-07-03 01:37] LABS: B. PARAPERTUSSIS- RESP PCR PAN NOT DETECTED; B. PERTUSSIS- RESP PCR PANEL NOT DETECTED; C. PNEUMONIAE- RESP PCR PANEL NOT DETECTED; CORONAVIRUS 229E-RESP PCR NOT DETECTED; CORONAVIRUS HKU1-RESP PCR NOT DETECTED; CORONAVIRUS NL63-RESP PCR NOT DETECTED; CORONAVIRUS OC43-RESP PCR NOT DETECTED; HUMAN METAPNEUMOVIRUS NOT DETECTED; INFLUENZA A- RESP PCR PANEL NOT DETECTED; INFLUENZA B - RESP PCR PANEL NOT DETECTED; M. PNEUMONIAE- RESP PCR PANEL NOT DETECTED; PARAINFLUENZA VIRUS 1 NOT DETECTED; PARAINFLUENZA VIRUS 2 NOT DETECTED; PARAINFLUENZA VIRUS 3 NOT DETECTED; PARAINFLUENZA VIRUS 4 NOT DETECTED; RHINOVIRUS/ENTEROVIRUS NOT DETECTED; RSV- RESP PCR PANEL NOT DETECTED; SARS-CoV-2 -RESP PCR PANEL NOT DETECTED
[2023-07-03 02:37] VITALS: BP 134/75; O2SAT 100
== END 2023-07-03 02:32 | disposition home or self-care (01) ==
LOC: ED
DX: R04.2 Hemoptysis (principal); Z87.891 Personal history of nicotine dependence
CPT/HCPCS: 36415; 80053; 83690; 85025; 85379; 87633; 99283

== ENCOUNTER 2023-08-02 15:09 | Outpatient (CLI) | payer MEDICARE ==
--- NOTE | 2023-08-02 16:41 | XRAY Report ---
PROCEDURE: Wrist 3 View RT INDICATIONS: PAIN OF RIGHT WRIST TECHNIQUE: 3 views of the wrist were acquired. COMPARISON: None. FINDINGS: Bones: No fractures or dislocations. Moderate osteoarthritic changes in right wrist are seen. No preciado spicious bony lesions. Soft tissues: No suspicious soft tissue calcifications or masses. IMPRESSION: No acute bony abnormality. Moderate right wrist joint osteoarthritis. Reviewed by: Clayton Willoughby MD on 08/02/2023 4:40 PM PST Approved by: Clayton Willoughby MD on 08/02/2023 4:40 PM PST Station ID: [id number]
== END 2023-08-02 15:10 | disposition home or self-care (01) ==
LOC: DI.S 15:09
PROVIDERS: ATTEND Registered Nurse
DX: M19.031 Primary osteoarthritis, right wrist (principal)

== ENCOUNTER 2023-08-18 11:23 | Outpatient (CLI) | payer MEDICARE ==
--- NOTE | 2023-08-18 13:49 | XRAY Report ---
PROCEDURE: Hip w/Pelvis 2-3V RT INDICATIONS: ACTUE LOW BACK PAIN TECHNIQUE: AP pelvis with lateral view(s) of the right hip(s). COMPARISON: None. FINDINGS: Bones: No fractures or dislocations. Mild bilateral hip joint degeneration. Degenerative changes of the visualized lower lumbar spine and pubic symphysis. No suspicious bony lesions. Soft tissues: No suspicious soft tissue calcifications or masses. IMPRESSION: No acute bony abnormality. Mild degenerative changes of the bilateral hips. Reviewed by: Everardo Melton MD on 08/18/2023 1:47 PM PST Approved by: Everardo Melton MD on 08/18/2023 1:47 PM PST Station ID: [id number]
--- NOTE | 2023-08-18 13:50 | XRAY Report ---
PROCEDURE: Lumbar Spine 2 View INDICATIONS: ACUTE LOW BACK PAIN TECHNIQUE: 3 views of the lumbar spine were acquired. COMPARISON: None. FINDINGS: Bones: 5 [id number] vertebrae are present. Mild levocurvature of the lumbar spine. Grade I ante rolisthesis of L4 on L5. Diffusely decreased osseous mineralization. There are multilevel degenerativ e changes of the lumbar spine with facet arthropathy and disc height loss with degenerative endplate changes and marginal spurring. No vertebral body compression fractures. No suspicious bony lesions. Soft tissues: Overlying bowel gas pattern is normal. No suspicious soft tissue calcifications. Ath erosclerotic vascular calcifications. IMPRESSION: Multilevel degenerative changes of the lumbar spine. No acute vertebral body compression deformities. Reviewed by: Everardo Melton MD on 08/18/2023 1:48 PM PST Approved by: Everardo Melton MD on 08/18/2023 1:48 PM PST Station ID: [id number]
== END 2023-08-18 11:24 | disposition home or self-care (01) ==
LOC: DI.S 11:23
PROVIDERS: ATTEND Registered Nurse
DX: M16.0 Bilateral primary osteoarthritis of hip (principal); M47.816 Spondylosis without myelopathy or radiculopathy, lumbar region

== ENCOUNTER 2023-09-04 07:00 | Outpatient (CLI) | payer MEDICARE ==
--- NOTE | 2023-09-04 10:27 | XRAY Report ---
PROCEDURE: Chest 2V INDICATIONS: CHEST CONGESTION/PRODUCTIVE COUGH TECHNIQUE: 2 views of the chest were acquired. COMPARISON: 03/02/2023 FINDINGS: Surgical changes and devices: None. Lungs and pleura: Possible left lung base scarring or atelectasis versus early airspace disease. No pleural effusions. Mediastinum: Normal heart size. Aortic calcifications. Bones and chest wall: There are degenerative changes. IMPRESSION: There is a mild opacity at the left lung base, representing atelectasis, scarring, or early airspace disease. Consider future imaging surveillance to assess for resolution. Reviewed by: Edilberto Harkins MD on 09/04/2023 10:25 AM PST Approved by: Edilberto Harkins MD on 09/04/2023 10:25 AM PST Station ID: [id number]
== END 2023-09-04 23:59 | disposition home or self-care (01) ==
LOC: DI.S 07:00
PROVIDERS: ATTEND Physician Assistant Medical
DX: R91.8 Other nonspecific abnormal finding of lung field (principal)

== ENCOUNTER → 2023-09-04 | Outpatient (CLI) | payer MEDICARE | LOC: LAB.S 08:00 | PROVIDERS: ATTEND Physician Assistant Medical | DX: Z53.9 Procedure and treatment not carried out, unspecified reason (principal) ==

== ENCOUNTER 2024-01-07 14:38 | Emergency (ER) | payer MEDICARE ==
[2024-01-07 15:01] VITALS: O2SAT 98
--- NOTE | 2024-01-07 15:05 | ED Physician Documentation ---
History of Present Illness - Stated complaint Stated Complaint: CHEST PX,SOA - Chief complaint Chief Complaint: Cardiac - History obtained from History obtained from: Patient, Family - History of Present Illness Timing: How many days ago (3) Pain level max: 8 Pain level now: 8 - Additonal information Additional information: 83-year-old female states that she fell 3 to 4 days ago and since that time has intermittent very sharp left-sided chest pain. Worse with palpation, deep breathing and movement. She had an outpatient ultrasound yesterday that was reportedly positive for DVT. This was at [facility] in [place]. She was started on Eliquis. Went to the walk-in clinic today for the sharp left-sided chest pain and was sent here for possible PE. No hypoxia. No tachycardia. No headache, no nausea, vomiting.No fevers, cough, congestion. 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, Ectopic : None HEENT: Chronic vision loss Psych: Anxiety Musculoskeletal: Other Derm: Rosacea - Past Surgical History Past Surgical History: Yes General: Appendectomy Ortho: Carpal Tunnel surgery /SECURITIES SALES ASSOCIATE: Oophrectomy, Other Cardiovascular: Cardiac catheterization - Present Medications Home Medications: Ambulatory Orders Medication Instructions Recorded Confirmed Aspirin Chewable [St Reyes 81 mg PO DAILY 08/26/13 01/07/24 Aspirin] Atorvastatin Calcium 20 mg PO DAILY 05/14/19 01/07/24 Lisinopril/Hydrochlorothiazide 1 each PO DAILY 05/14/19 01/07/24 [Lisinopril-Hctz 20-12.5 mg Tab] Nitroglycerin [Nitrostat] 0.4 mg SL ONCE 05/14/19 01/07/24 Alprazolam [Xanax] 0.25 mg PO DAILY PRN 12/31/21 01/07/24 Nitroglycerin [Nitrostat] 0.4 mg SL Q5MIN PRN #25 tablet 03/16/23 01/07/24 - Allergies Allergies/Adverse Reactions: Allergies Allergy/AdvReac Type Severity Reaction Status Date / Time meperidine HCl * AdvReac Unknown Nausea Verified 01/07/24 14:50 [From Demerol] niacin AdvReac Unknown Hives Verified 01/07/24 14:50 prednisone AdvReac Hives Verified 01/07/24 14:50 - Social History Does the pt smoke?: No Smoking Status: Never smoker Does the pt drink ETOH?: No Does the pt have substance abuse?: No - Immunizations Immunizations are current?: Yes - POLST Patient has POLST: No PD ED PE NORMAL - Vitals Vital signs reviewed: Yes - General General: Alert and oriented X 3, No acute distress - HEENT HEENT: PERRL, Moist mucous membranes - Neck Neck: Supple, no meningeal sign - Cardiac Cardiac: RRR, Strong equal pulses - Respiratory Respiratory: No respiratory distress, Clear bilaterally - Abdomen Abdomen: Soft, Non tender, Non distended - Back Back: No spinal TTP - Derm Derm: Warm and dry - Extremities Extremities: No edema, No calf tenderness / cord - Neuro Neuro: Alert and oriented X 3 - Psych Psych: Normal mood, Normal affect - Free text exam Free text exam: Tender to palpation over the left anterior chest wall, approximately ribs 5 through 8 over the costochondral cartilage. Most acutely at approximately rib 7. Reproduces her pain. No ecchymosis, crepitus. Results - Vitals Vitals: Vital Signs - 24 hr 01/07/24 01/07/24 01/07/24 14:43 17:01 17:09 Temperature 36.7 C Heart Rate 72 78 Respiratory 15 28 H Rate Blood Pressure 161/53 H 190/60 H Blood Pressure 190/60 H [Left] O2 Saturation 98 98 01/07/24 18:45 Temperature 36.2 C L Heart Rate 66 Respiratory 18 Rate Blood Pressure 146/58 H Blood Pressure [Left] O2 Saturation 98 Oxygen O2 Source Room air - EKG (time done) 1456 EKG releavant findings:: EKG personally interpreted by author of this note. Relevant findings are: Rate: Rate (enter#) (65) Rhythm: NSR [place]: Normal Intervals: Normal LA QRS: Normal Ischemia: T wave inversion (III, aVF) - Labs Labs: Laboratory Tests 01/07/24 01/07/24 15:01 15:01 WBC 7.0 RBC 4.61 Hgb 13.4 Hct 41.9 MCV 90.9 MCH 29.1 MCHC 32.0 RDW 12.6 Plt Count 210 MPV 10.2 Neut # (Auto) 4.6 Lymph # (Auto) 1.8 [place] # (Auto) 0.4 Eos # (Auto) 0.1 Baso # (Auto) 0.1 Absolute Nucleated RBC 0.00 Nucleated RBC % 0.0 Sodium 139 Potassium 3.6 Chloride 101 Carbon Dioxide 31 Anion Gap 7.0 BUN 21 H Creatinine 0.9 Estimated GFR (MDRD) 60 L Glucose 103 Calcium 10.1 Total Bilirubin 0.5 AST 13 ALT 17 Alkaline Phosphatase 70 Total Protein 7.8 Albumin 4.4 Globulin 3.4 Albumin/Globulin Ratio 1.3 - Rads (name of study) CTPA Relevant Findings:: Final report received, See rad report PD Medical Decision Making - ED course Complexity details: reviewed results, re-evaluated patient, considered differential, d/w patient, d/w family ED course: CT pulmonary angiogram does not show any evidence of pulmonary embolus. Her chest pain seems much more consistent with a cracked rib versus cracked cartilage. Likely secondary to her fall. Was not on Eliquis at the time of her fall. No headaches. No acute findings on laboratory testing, EKG. Patient declines pain medication here or for home. No evidence of aortic dissection, PE, ACS. Patient counseled regarding signs and symptoms for which I believe and urgent re-evaluation would be necessary. Patient with good understanding of and agreement to plan and is comfortable going home at this time This document was made in part using voice recognition software. While efforts are made to proofread this document, sound alike and grammatical errors may occur. Departure - Departure Disposition: 01 Home, Self Care Clinical Impression: Chest wall pain Condition: Good Instructions: ED Contusion Chest Wall, ED Contusion Vs Minor Fx Rib Follow-Up: Your,doctor in 1 week [Other] Comments: Your CT scan does not show any acute abnormalities today. There is no evidence of blood clot in your lungs. As we discussed and there is likely a crack in the cartilage of your ribs that would not show up on a CT scan. This is likely from your fall. This should heal on its own but may take several weeks. Please follow-up with your doctor for further care. Please return if you worsen. Your doctor may also want to order an ultrasound of your thyroid, as it does have an abnormal appearance on CT scan. Your CT scan is included below. PROCEDURE: Angio Chest INDICATIONS: L side pain, + dvt CONTRAST: 80ml omni 300 TECHNIQUE: After the administration of intravenous contrast, 2 mm axial images were acquired from the pulmonary apices to the posterior costophrenic angles during the arterial phase. In addition, 1 mm lung kernel and 5 mm soft tissue kernel reconstructions were performed. 3-dimensional coronal oblique maximum intensity projection (MIP) reformats, 8 mm axial MIP, and 5 mm coronal and sagittal MPR reformats were then performed through the thorax. For radiation dose reduction, the following was used: automated exposure control, adjustment of mA and/or kV according to patient size. COMPARISON: Chest radiographs 09/04/2023 FINDINGS: Image quality: Excellent. Large vessels: No filling defects within the opacified pulmonary arteries, accounting for motion and contrast timing. No evidence of acute aortic syndrome or aortic aneurysm. Lungs and pleura: No consolidation. Mild centrilobular emphysema. No pleural effusions. No pneumothorax. No suspicious pulmonary nodules which require follow up. Mediastinum: Heart size is mildly enlarged. No pericardial effusion. Mild coronary calcifications. No large vessel abnormality. No mediastinal adenopathy by size criteria. Small hiatal hernia. Chest wall and lower neck: Thyroid is enlarged and diffusely heterogeneous extending into the upper mediastinum. No axillary or supraclavicular adenopathy by size. Bones: No aggressive osseous abnormality. Degenerative changes are seen in the included spine. Upper Abdomen: Unremarkable. IMPRESSION: 1.No acute pulmonary embolus. No acute abnormality is seen in the chest. 2.Small hiatal hernia. 3.Enlarged heterogeneous thyroid. Thyroid ultrasound could be performed for further evaluation if indicated based on clinical factors. Forms: PCP List Discharge Date/Time: 01/07/24 18:45
[2024-01-07 15:15] LABS: BASOPHILS # (AUTO) 0.1 10^3/uL (0.0-0.1); BASOPHILS % (AUTO) 1.1 %; EOSINOPHILS # (AUTO) 0.1 10^3/uL (0.0-0.7); EOSINOPHILS % (AUTO) 1.8 %; HCT - HEMATOCRIT 41.9 % (37.0-47.0); HGB - HEMOGLOBIN 13.4 g/dL (12.0-16.0); LYMPHOCYTES # (AUTO) 1.8 10^3/uL (1.5-3.5); LYMPHOCYTES % (AUTO) 25.9 %; MEAN CORPUSCULAR HEMOGLOBIN 29.1 pg (27.0-31.0); MEAN CORPUSCULAR VOLUME 90.9 fL (81.0-99.0); MEAN PLATELET VOLUME 10.2 fL (7.9-10.8); MONOCYTES # (AUTO) 0.4 10^3/uL (0.0-1.0); MONOCYTES % (AUTO) 5.1 %; NEUTROPHILS # (AUTO) 4.6 10^3/uL (1.5-6.6); PLT - PLATELET COUNT 210 10^3/uL (130-450); RED BLOOD COUNT 4.61 10^6/uL (4.20-5.40); RED CELL DISTRIBUTION WIDTH 12.6 % (12.0-15.0)
[2024-01-07 15:21] LABS: ALBUMIN 4.4 g/dL (3.2-5.5); ALBUMIN/GLOBULIN RATIO 1.3 (1.0-2.2); BILIRUBIN,TOTAL 0.5 mg/dL (0.2-1.0); CALCIUM 10.1 mg/dL (8.5-10.3); CREATININE 0.9 mg/dL (0.6-1.3); POTASSIUM 3.6 mmol/L (3.5-4.5); TOTAL PROTEIN 7.8 g/dL (6.4-8.9)
[2024-01-07] MEDS ORDERED: iohexoL-300 100 ML VIAL ONE (15:34)
[2024-01-07] MEDS: iohexoL-300 100 ML VIAL IVP ONE (17:05)
[2024-01-07] MEDS: ONDANSETRON 4 MG/2 ML VIAL IVP STA (17:08)
--- NOTE | 2024-01-07 18:03 | CT Report ---
PROCEDURE: Angio Chest INDICATIONS: L side pain, + dvt CONTRAST: 80ml omni 300 TECHNIQUE: After the administration of intravenous contrast, 2 mm axial images were acquired from the pulmonary apices to the posterior costophrenic angles during the arterial phase. In addition, 1 mm lung kernel and 5 mm soft tissue kernel reconstructions were performed. 3-dimensional coronal oblique maximum int ensity projection (MIP) reformats, 8 mm axial MIP, and 5 mm coronal and sagittal MPR reformats were t hen performed through the thorax. For radiation dose reduction, the following was used: automated exp osure control, adjustment of mA and/or kV according to patient size. COMPARISON: Chest radiographs 09/04/2023 FINDINGS: Image quality: Excellent. Large vessels: No filling defects within the opacified pulmonary arteries, accounting for motion and contrast timing. No evidence of acute aortic syndrome or aortic aneurysm. Lungs and pleura: No consolidation. Mild centrilobular emphysema. No pleural effusions. No pneumotho rax. No suspicious pulmonary nodules which require follow up. Mediastinum: Heart size is mildly enlarged. No pericardial effusion. Mild coronary calcifications. No large vessel abnormality. No mediastinal adenopathy by size criteria. Small hiatal hernia. Chest wall and lower neck: Thyroid is enlarged and diffusely heterogeneous extending into the upper m ediastinum. No axillary or supraclavicular adenopathy by size. Bones: No aggressive osseous abnormality. Degenerative changes are seen in the included spine. Upper Abdomen: Unremarkable. IMPRESSION: 1.No acute pulmonary embolus. No acute abnormality is seen in the chest. 2.Small hiatal hernia. 3.Enlarged heterogeneous thyroid. Thyroid ultrasound could be performed for further evaluation if ind icated based on clinical factors. Reviewed by: Hussain Torrez MD on 01/07/2024 6:02 PM PDT Approved by: Hussain Torrez MD on 01/07/2024 6:02 PM PDT Station ID: [id number]
[2024-01-07 18:48] VITALS: BP 146/58
== END 2024-01-07 18:45 | disposition home or self-care (01) ==
LOC: ED 14:38
DX: R07.89 Other chest pain (principal); W19.XXXA Unspecified fall, initial encounter
CPT/HCPCS: 36415; 71275; 80053; 85025; 93005; 96374; 99284; Q9967

== ENCOUNTER 2024-02-19 01:45 | Emergency (ER) | payer MEDICARE ==
--- NOTE | 2024-02-19 02:01 | ED Physician Documentation ---
PD HPI NVD - Stated complaint Stated Complaint: LOW BP; GI - Chief complaint Chief Complaint: Abd Pain - History obtained from History obtained from: Patient - Additonal information Additional information: HPI from patient. Patient complains of 4 to 5 days of nausea, vomiting, and diarrhea. However, she elaborates that the diarrhea has actually been a recurrent problem for months. The nausea and vomiting are new as of 4 to 5 days ago. Over the past few days, she has had increasing fatigue, sleeping more than usual including during the day, generalized weakness, and increasingly poor appetite. She says she only had a few crackers all day as her p.o. intake. She says she was able to keep down what little she is taking in, but any PO intake has been causing increasingly significant nausea as well as rapid recurrence of the diarrhea. Denies fever, denies any pain including abdominal pain. Also denies chest pain, shortness of breath. Regarding the ongoing diarrhea, she says she has had testing including stool tests which have not revealed the cause, and has a scheduled upcoming colonoscopy as outpatient testing for her diarrhea is ongoing. She denies blood in the vomitus, blood in stool. She has noticed some dark stool but not black; again, she says the dark stool has been ongoing for months along with the diarrhea. Review of Systems Constitutional: reports: Fatigue. denies: Fever, Chills, Sweats Cardiac: reports: Reviewed and negative Respiratory: reports: Reviewed and negative GI: reports: Nausea, Vomiting, Diarrhea. denies: Abdominal Pain, Abdominal Swelling, Constipation, Hematemesis, Bloody / black stool : denies: Dysuria, Frequency PD PAST MEDICAL HISTORY - Past Medical History Cardiovascular: Hypertension, High cholesterol, Angina, Arrhythmia Respiratory: None Neuro: None Endocrine/Autoimmune: Type 2 diabetes GI: None KEYLINER: None, Ectopic : None HEENT: Chronic vision loss Psych: Anxiety Musculoskeletal: Other Derm: Rosacea - Past Surgical History Past Surgical History: Yes General: Appendectomy Ortho: Carpal Tunnel surgery /KEYLINER: Oophrectomy, Other Cardiovascular: Cardiac catheterization - Present Medications Home Medications: Ambulatory Orders Medication Instructions Recorded Confirmed Aspirin Chewable [[place] 81 mg PO DAILY 08/26/13 01/07/24 Aspirin] Atorvastatin Calcium 20 mg PO DAILY 05/14/19 01/07/24 Lisinopril/Hydrochlorothiazide 1 each PO DAILY 05/14/19 01/07/24 [Lisinopril-Hctz 20-12.5 mg Tab] Nitroglycerin [Nitrostat] 0.4 mg SL ONCE 05/14/19 01/07/24 Alprazolam [Xanax] 0.25 mg PO DAILY PRN 12/31/21 01/07/24 Nitroglycerin [Nitrostat] 0.4 mg SL Q5MIN PRN #25 tablet 03/16/23 01/07/24 Ondansetron Odt [Zofran] 4 mg TL Q6H PRN #14 tablet 02/19/24 - Allergies Allergies/Adverse Reactions: Allergies Allergy/AdvReac Type Severity Reaction Status Date / Time meperidine HCl * AdvReac Unknown Nausea Verified 01/07/24 14:50 [From Demerol] niacin AdvReac Unknown Hives Verified 01/07/24 14:50 prednisone AdvReac Hives Verified 01/07/24 14:50 - Social History Does the pt smoke?: No Smoking Status: Never smoker Does the pt drink ETOH?: No Does the pt have substance abuse?: No - Immunizations Immunizations are current?: Yes - POLST Patient has POLST: No PD ED PE NORMAL - Vitals Vital signs reviewed: Yes - General General: Alert and oriented X 3, No acute distress, Well developed/nourished - HEENT HEENT: Other (tacky/pasty mucous membranes) - Cardiac Cardiac: RRR - Respiratory Respiratory: No respiratory distress, Clear bilaterally - Abdomen Abdomen: Normal bowel sounds, Soft, Non tender, Non distended - Derm Derm: Normal color, Warm and dry - Extremities Extremities: No edema - Neuro Neuro: Alert and oriented X 3, No motor deficit, No sensory deficit, Normal speech Eye Opening: Spontaneous Motor: Obeys Commands Verbal: Oriented GCS Score: 15 PD ED PE EXPANDED - Cardiac Cardiac: Murmur Present (1/6 WESLY left 2nd ICS) Results - Vitals Vitals: Vital Signs - 24 hr 02/19/24 02/19/24 02/19/24 01:52 02:10 02:50 Temperature 36.6 C Heart Rate 52 L 62 Heart Rate [ 73 Sitting] Heart Rate [ 78 Standing] Heart Rate [ 66 Supine] Respiratory 16 18 Rate Blood Pressure 99/37 L 112/48 L Blood Pressure 121/51 L [Sitting] Blood Pressure 117/51 L [Standing] Blood Pressure 124/46 L [Supine] O2 Saturation 97 97 02/19/24 02/19/24 04:14 05:09 Temperature Heart Rate 63 75 Heart Rate [ Sitting] Heart Rate [ Standing] Heart Rate [ Supine] Respiratory 16 16 Rate Blood Pressure 112/60 118/45 L Blood Pressure [Sitting] Blood Pressure [Standing] Blood Pressure [Supine] O2 Saturation 97 95 Oxygen O2 Source Room air - Labs Labs: Laboratory Tests 02/19/24 02/19/24 02/19/24 02:22 02:22 03:29 WBC 7.7 RBC 3.92 L Hgb 11.3 L Hct 35.1 L MCV 89.5 MCH 28.8 MCHC 32.2 RDW 13.2 Plt Count 151 MPV 10.4 Neut # (Auto) 6.0 Lymph # (Auto) 0.9 L [place] # (Auto) 0.8 Eos # (Auto) 0.0 Baso # (Auto) 0.0 Absolute Nucleated RBC 0.00 Nucleated RBC % 0.0 Sodium 130 L Potassium 3.5 Chloride 96 L Carbon Dioxide 22 Anion Gap 12.0 BUN 31 H Creatinine 1.8 H Estimated GFR (MDRD) 27 L Glucose 116 H Calcium 8.9 Total Bilirubin 0.6 AST 20 ALT 18 Alkaline Phosphatase 50 Total Protein 6.6 Albumin 3.7 Globulin 2.9 Albumin/Globulin Ratio 1.3 Lipase 19 Urine Color YELLOW Urine Clarity CLEAR Urine pH 5.0 Ur Specific [place] 1.020 Urine Protein NEGATIVE Urine Glucose (UA) NEGATIVE Urine Ketones NEGATIVE Urine Occult Blood NEGATIVE Urine Nitrite NEGATIVE Urine Bilirubin NEGATIVE Urine Urobilinogen 0.2 (NORMAL) Ur Leukocyte Esterase NEGATIVE Ur Microscopic Review NOT INDICATED Urine Culture Comments NOT INDICATED PD Medical Decision Making - ED course Complexity details: reviewed results, re-evaluated patient, considered differential, d/w patient ED course: Initial BP in triage is 99/37, but all subsequent blood pressures are within normal range (even before intervention such as IV fluids). Her blood pressures were 100s-110s; although some DBP in 40s, MAP consistently greater than 60 after first BP in triage. Unremarkable CBC (hemoglobin 11.3 is noted). She has mild hyponatremia (sodium 130), normal LFTs and normal UA. Most striking on the blood tests is BUN of 31 and creatinine 1.8 , GFR 27. All but one of her previous creatinines dating back 10 years on [facility] have been normal, including creatinine of 0.9 last month. Most previous BUN results were within normal range, although 21 last month. All previous GFR's dating back 10 years have been abnormal in [facility] records, but lenny's result of 27 is the lowest on our records and GFR was 60 last month (01/07/2024). Given that she is having ongoing diarrhea for months, now compounded with nausea and vomiting and poor p.o. intake for the past few days, dehydration is very likely a heavy contributing factor in her abnormal kidney function test, possibly even the cause. She is given 2 L normal saline IV during ED stay along with 4 mg IV Zofran. On reevaluation, the test results are reviewed with patient. She says she feels much improved and comfortable with DC home. I emphasized the need for her to seek follow-up with PCP as soon as can be arranged even if she continues to feel well; she will almost certainly need repeat of her kidney function tests in the short-term. Return precautions were reviewed. I have electronically submitted a prescription for ondansetron to [facility] in [place]. Departure - Departure Disposition: 01 Home, Self Care Clinical Impression: Dehydration Vomiting Qualifiers: Vomiting type: unspecified Nausea presence: with nausea Qualified Code(s): R11.2 - Nausea with vomiting, unspecified Diarrhea Qualifiers: Diarrhea type: unspecified type Qualified Code(s): R19.7 - Diarrhea, unspecified Condition: Good Instructions: ED Dehydration, ED Diet Vomiting Diarrhea, ED Vomiting Diarrhea Nonspecific Ad Prescriptions: Ondansetron Odt [Zofran] 4 mg TL Q6H PRN #14 tablet PRN Reason: Nausea / Vomiting Comments: The most concerning finding on lenny's blood tests were abnormal kidney function tests. Your BUN and creatinine (kidney tests) were both elevated above a normal range. Most concerning is that your previous creatinine levels have been normal. I suspect dehydration is contributing heavily to these abnormal tests, and you were given 2 L of normal saline through your IV tonight during your emergency department stay. Follow-up with your primary care provider as soon as can be arranged; you will likely need to have the kidney function tests repeated within the next week. I have electronically submitted a prescription for ondansetron (antinausea medication) to the [facility] in [place].
[2024-02-19] MEDS: SODIUM CHLORIDE 0.9% 1,000 ML IV STA ×2 (02:22→04:16)
[2024-02-19 02:29] LABS: BASOPHILS % (AUTO) 0.4 %; HCT - HEMATOCRIT 35.1 % (37.0-47.0); HGB - HEMOGLOBIN 11.3 g/dL (12.0-16.0); LYMPHOCYTES # (AUTO) 0.9 10^3/uL (1.5-3.5); LYMPHOCYTES % (AUTO) 11.6 %; MEAN CORPUSCULAR HEMOGLOBIN 28.8 pg (27.0-31.0); MEAN CORPUSCULAR HGB CONC 32.2 g/dL (32.0-36.0); MEAN CORPUSCULAR VOLUME 89.5 fL (81.0-99.0); MEAN PLATELET VOLUME 10.4 fL (7.9-10.8); MONOCYTES # (AUTO) 0.8 10^3/uL (0.0-1.0); NEUTROPHILS % (AUTO) 77.7 %; PLT - PLATELET COUNT 151 10^3/uL (130-450); RED BLOOD COUNT 3.92 10^6/uL (4.20-5.40); RED CELL DISTRIBUTION WIDTH 13.2 % (12.0-15.0); WHITE BLOOD COUNT 7.7 x10^3/uL (4.8-10.8)
[2024-02-19] MEDS: ONDANSETRON 4 MG/2 ML VIAL IVP STA (02:30)
[2024-02-19 02:43] LABS: ALBUMIN 3.7 g/dL (3.2-5.5); ALBUMIN/GLOBULIN RATIO 1.3 (1.0-2.2); BILIRUBIN,TOTAL 0.6 mg/dL (0.2-1.0); CALCIUM 8.9 mg/dL (8.5-10.3); CREATININE 1.8 mg/dL (0.6-1.3); POTASSIUM 3.5 mmol/L (3.5-4.5); TOTAL PROTEIN 6.6 g/dL (6.4-8.9)
[2024-02-19 03:54] LABS: BILIRUBIN,URINE NEGATIVE (NEGATIVE); GLUCOSE, URINE (UA) NEGATIVE (NEGATIVE); KETONES,URINE (UA) NEGATIVE (NEGATIVE); LEUKOCYTE ESTERASE, URINE NEGATIVE (NEGATIVE); NITRITE,URINE NEGATIVE (NEGATIVE); OCCULT BLOOD,URINE NEGATIVE (NEGATIVE); PROTEIN,URINE NEGATIVE (NEGATIVE); UROBILINOGEN,URINE 0.2 (NORMAL) E.U./dL (NORMAL)
[2024-02-19 03:59] LABS: CLARITY,URINE CLEAR (CLEAR)
[2024-02-19 05:12] VITALS: BP 118/45; O2SAT 95
== END 2024-02-19 06:00 | disposition home or self-care (01) ==
LOC: ED 01:45
DX: E86.0 Dehydration (principal); R11.2 Nausea with vomiting, unspecified; R19.7 Diarrhea, unspecified; R94.4 Abnormal results of kidney function studies
CPT/HCPCS: 36415; 80053; 81001; 81003; 83690; 84484; 85025; 87086; 96361; 96374; 99284

== ENCOUNTER 2024-02-25 11:21 | Outpatient (CLI) | payer MEDICARE ==
[2024-02-25 15:51] LABS: ALBUMIN 3.9 g/dL (3.2-5.5); ALBUMIN/GLOBULIN RATIO 1.4 (1.0-2.2); BILIRUBIN,TOTAL 0.5 mg/dL (0.2-1.0); CALCIUM 9.4 mg/dL (8.5-10.3); CREATININE 0.9 mg/dL (0.6-1.3); POTASSIUM 3.8 mmol/L (3.5-4.5); TOTAL PROTEIN 6.6 g/dL (6.4-8.9)
== END 2024-02-25 11:22 | disposition home or self-care (01) ==
LOC: LAB.S 11:21
DX: I10 Essential (primary) hypertension (principal)
CPT/HCPCS: 36415; 80053

== ENCOUNTER 2024-03-03 13:09 | Outpatient (CLI) | payer MEDICARE ==
--- NOTE | 2024-03-03 16:47 | Ultrasound Report ---
PROCEDURE: Soft Tissue Head or Neck INDICATIONS: GOITER TECHNIQUE: Real-time scanning was performed of the thyroid gland, with image documentation. COMPARISON: CT chest 01/07/2024 FINDINGS: Right: Thyroid lobe measures 5.0 x 2.6 x 3 point cm. Left: Thyroid lobe measures 7.5 x 3.3 x 4.0 cm Isthmus: 4 cm thick. Echotexture: Heterogeneous. Nodule number: One Location: Right midsuperior Size: 1.5 x 1.8 x 1.2 cm compared to 1.5 x 2.1 x 1.4 cm. Composition: . Echogenicity: Hypoechoic. Shape: wider than tall (0 points). Margins: Smooth. Echogenic foci: None (0 points). Total points: 4 ACR TI-RADS category: 4. It is noted this nodule was previously biopsied. Nodule number: Two Location: Right inferior Size: 3.0 x 3.5 x 3.5 cm. Composition: Solid. Echogenicity: Hypoechoic. Shape: wider than tall (0 points). Margins: Irregular. Echogenic foci: None (0 points). Total points: 4 ACR TI-RADS category: 4 Nodule number: Three Location: Left inferior Size: 1.6 x 1.4 x 1.4 cm compared to 1.8 x 1.6 x 1.7 cm. Composition: Solid. Echogenicity: Hypoechoic. Shape: wider than tall (0 points). Margins: Irregular. Echogenic foci: None (0 points). Total points: 4 ACR TI-RADS category: 4. It is noted this nodule was previously biopsied. Nodule number: Four Location: Left inferior Size: 1.6 x 1.8 x 1.2 cm. Composition: Solid. Echogenicity: Hypoechoic. Shape: wider than tall (0 points). Margins: Smooth (0 points). Echogenic foci: None (0 points). Total points: 4 ACR TI-RADS category: 4 IMPRESSION: Stable appearance of lesions 1 and 3 considered category 4 previously biopsied. New lesions 2 and 4 are identified both considered category 4. Secondary to size, FNA is recommended. ACR TI-RADS definitions and recommendations: TI-RADS 1 (benign): 0 points. FNA not needed. TI-RADS 2 (not suspicious): 2 points. FNA not needed. TI-RADS 3 (mildly suspicious): 3 points. "FNA if 2.5 cm or larger, follow up if 1.5 cm or larger (at 1, 3, and 5 years). TI-RADS 4 (moderately suspicious): 4-6 points. "FNA if 1.5 cm or larger, follow up if 1 cm or larger (at 1, 2, 3, and 5 years). TI-RADS 5 (highly suspicious): 7 points or more. "FNA if 1 cm or larger, follow up if 0.5 cm or larger (every year for 5 years). Reviewed by: Myra Hernandez MD on 03/03/2024 4:46 PM PDT Approved by: Myra Hernandez MD on 03/03/2024 4:46 PM PDT Station ID: [id number]
== END 2024-03-03 13:10 | disposition home or self-care (01) ==
LOC: DI 13:09
PROVIDERS: ATTEND Registered Nurse
DX: E04.2 Nontoxic multinodular goiter (principal)

== ENCOUNTER 2024-03-20 14:12 | Outpatient (CLI) | payer MEDICARE ==
--- NOTE | 2024-03-21 09:12 | Mammography Report ---
BILATERAL DIGITAL DIAGNOSTIC MAMMOGRAM 3D/2D WITH SPOT COMPRESSION: 03/20/2024 CLINICAL: Palpable left breast lump. Left focal axilla pain. Due for bilateral. Comparison is made to exams dated: 01/22/2023 mammogram, 09/21/2021 mammogram, 09/20/2020 mammogram, mammogram, 08/17/2018 mammogram, and [facility] Both breasts are heterogeneously dense, which may obscure small masses (category c / 51-75% glandular tissue). No significant masses, calcifications, or other findings are seen in either breast. IMPRESSION: INCOMPLETE: NEEDS ADDITIONAL IMAGING EVALUATION There is no abnormality seen in the left breast/chest wall to correspond with the area of clinical co ncern, however, ultrasound is recommended. There is no abnormality seen to correspond with the pain in the axilla, however, ultrasound is recomm ended. Based on the Tyrer Cuzick model (a risk assessment model) the patient's lifetime risk is 3.1% and her 10 year risk is 0.0%. According to the ACR, ACS, and NCCN guidelines, an annual breast MRI exam micha g with mammogram is recommended if the patient's lifetime risk is 20% or greater. This exam was interpreted at Station ID: [id number]. NOTE: For mammograms, a report in lay terms will be sent to the patient. Approximately 15% of breast malignancies will not be visualized mammographically. In the management of a palpable breast mass, a negative mammogram must not discourage biopsy of a clinically suspicious lesion. Electronically Signed By: Edilberto Harkins M.D. lc/:03/20/2024 15:31:44 ACR BI-RADS Category 0: Incomplete 3340F PARENCHYMAL PATTERN: (D) - The breast(s) demonstrate(s) heterogeneously dense fibroglandular parenchy ma. BI-RADS CATEGORY: (0) - 0 Ultrasound [id number] Immediate follow-up LATERALITY: (B)
--- NOTE | 2024-03-21 09:13 | Ultrasound Report ---
LIMITED ULTRASOUND OF LEFT BREAST AND AXILLA: 03/20/2024 CLINICAL: PT feels left breast focal lump and focal pain. Comparison is made to exams dated: 03/20/2024 mammogram, 01/22/2023 mammogram, 09/21/2021 mammogram, an d 09/20/2020 ultrasound - [facility]. Color flow ultrasound of the left breast 2 o'clock, 11-12 o'clock, and axilla regions was performed. Schaefer scale images of the real-time examination were reviewed. No significant abnormalities were seen sonographically in the left breast or the left axillary tail IMPRESSION: NEGATIVE There is no sonographic evidence of malignancy. There are no abnormalities seen in the left breast to correspond with the palpable abnormalities at 1 1 and 12 o'clock, however, clinical correlation and clinical followup are recommended. There is no abnormality seen to correspond with the pain in the axillary tail, however, clinical pasha elation and clinical followup are recommended. Return to annual mammogram screening schedule is recommended. This exam was interpreted at Station ID: [id number]. Electronically Signed By: Edilberto Harkins M.D. lc/:03/20/2024 15:33:49 letter sent: No_Letter Ultrasound BI-RADS: 1 Negative BI-RADS CATEGORY: (1) - 1 Mammogram [id number] return to screening LATERALITY: (B)
== END 2024-03-20 14:13 | disposition home or self-care (01) ==
LOC: DI 14:12
DX: N63.20 Unspecified lump in the left breast, unspecified quadrant (principal); R92.333 Mammographic heterogeneous density, bilateral breasts

== ENCOUNTER 2024-04-07 07:00 | Outpatient (CLI) | payer MEDICARE ==
--- NOTE | 2024-04-07 08:54 | XRAY Report ---
PROCEDURE: Chest 2V INDICATIONS: PRODUCTIVE COUGH TECHNIQUE: 2 views of the chest were acquired. COMPARISON: 08/08/2023. FINDINGS: Surgical changes and devices: None. Lungs and pleura: No pleural effusions or pneumothorax. Lungs are clear. Mediastinum: Mediastinal contours appear normal. Heart size is normal. Bones and chest wall: No suspicious bony lesions. Overlying soft tissues appear unremarkable. IMPRESSION: No acute cardiopulmonary process. Reviewed by: Everardo Melton MD on 04/07/2024 8:52 AM PDT Approved by: Everardo Melton MD on 04/07/2024 8:52 AM PDT Station ID: [id number]
== END 2024-04-07 23:59 | disposition home or self-care (01) ==
LOC: DI.S 07:00
PROVIDERS: ATTEND Physician Assistant Medical
DX: R05.8 Other specified cough (principal); J02.9 Acute pharyngitis, unspecified
CPT/HCPCS: 87070

== ENCOUNTER 2024-04-07 08:00 | Outpatient (CLI) | payer MEDICARE | END 2024-04-07 23:59 | disposition home or self-care (01) | LOC: LAB.S 08:00 | PROVIDERS: ATTEND Physician Assistant Medical | DX: R05.9 Cough, unspecified (principal) ==